=== PATIENT | male | born 1970 | race Caucasian/White ===

== ENCOUNTER 2016-06-28 17:35 | Inpatient (IN) | payer MEDICARE, MEDICAID ==
[~2016-06-28] VITALS: Ht 182.9 cm; Wt 86.3 kg
[~2016-06-28 17:35] MED LIST: AMOX500C2 PO; ASPI-557 PO; ATOR40TA64 PO; CARV6.25 PO; FURO40TA5 PO; PANT40TA27 PO; POTA10TA16 PO; SACU1TAB PO; SOTA80TA20 PO; SPIR25TA4 PO
--- OUTSIDE RECORDS SUMMARY | 2016-06-28 18:12 | XMS REPORT | CCD ---
Author Author DERIC ALSTON Organization Unknown Address [address], [place] [id number] Phone 0 Care Team Providers Care Production Team Leader Name Role Phone KATINA LOPEZ Attending Physician 0 KATINA LOPEZ Primary Surgeon 0 Vital Signs Vital Sign Value Unit Date/Time Recent/Initial? Weight Measured 190 lbs 05/18/2016 05:14 Initial VS Height 72 in 2016 05:14 Initial VS BMI (Body Mass Index) 25.77 kg/m^2 05/18/2016 05:14 Initial VS BSA (Body Surface Area) 2.09 m^2 05/18/2016 05:14 Initial VS Allergies Allergy Code Allergy Type Reaction Status No Known Allergies 0 No known allergies Active Procedures Unknown or Not Available. History of Immunizations Immunization Code Date Tdap 115 01/08/2013 Problems Unknown or Not Available. Results CARDIAC PANEL - Collect Date/Time: 05/18/2016 05:15 Test Name Code Test Result Test Units Test Ref Range CKMB 2.0 ng/mL L=0.0 H=3.6 CPK 123 U/L L=26 H=308 CKMB% 1.6 % L=0.0 H=4.0 TROPONIN I 1.07 ng/ mL L=0.00 H=0.05 COMP METABOLIC - Collect Date/Time: 05/18/2016 05:15 Test Name Code Test Result Test Units Test Ref Range GLUCOSE 93 mg/dL L=70 H=110 BUN 11 mg/dL L=7 H=18 CREATININE 0.93 mg/ dL L=0.60 H=1.30 AGE 45 YEARS GFR 87.1 L=60.0 H=120 SODIUM 142 mmol/L L=136 H=145 POTASSIUM 2.8 mmol/ L L=3.5 H=5.1 CHLORIDE 105 mmol/L L=98 H=107 CO2 25 mmol/L L=21 H=32 CALCIUM 9.0 mg/dL L=8.5 H=10.1 AST 34 U/L L=15 H=37 ALT 85 U/L L=12 H=78 ALKALINE PHOS 70 U/ L L=46 H=116 TOTAL PROTEIN 7.8 g/ dL L=6.4 H=8.2 ALBUMIN 3.9 g/dL L=3.4 H=5.0 TOTAL BILI 0.80 mg/ dL L=0.00 H=1.00 PRO B-TYPE NATRIURETIC PEPTIDE - Collect Date/Time: 05/18/2016 05:15 Test Name Code Test Result Test Units Test Ref Range PBNP 05717 pg/mL L=0 H=125 CBC W/ DIFF - Collect Date/Time: 05/18/2016 05:15 Test Name Code Test Result Test Units Test Ref Range WBC 8.4 x10^3 L=4.8 H=10.8 RBC 4.92 x10^6 L=4.70 H=6.10 HEMOGLOBIN 16.1 g/ dL L=14.0 H=18.0 HEMATOCRIT 47.2 % L=42.0 H=52.0 MCV 96 fL L=80 H=100 MCH 32.8 pg L=27.0 H=33.0 MCHC 34.2 g/dL L=33.0 H=37.0 RDW 12.4 % L=11.5 H=14.5 PLATELETS 219 x10^3 L=150 H=450 MPV 9.3 fL L=7.8 H=11.0 NEUTROPHILS 52.6 % L=40.0 H=80.0 LYMPHOCYTES 36.6 % L=20.0 H=45.0 MONOCYTES 7.5 % L=0.0 H=10.0 EOSINOPHILS 2.7 % L=0.0 H=5.0 BASOPHILS 0.6 % L=0.0 H=2.0 REFLEX MAN DIFF NO N /A D-DIMER, QUANTITATIVE - Collect Date/Time: 05/18/2016 05:15 Test Name Code Test Result Test Units Test Ref Range D-DIMER, QUANT <100 ng/mL L=0 H=400 Active Medications Unknown or Not Available. Medications Administered During Visit Unknown or Not Available. Encounters Unknown or Not Available. Social History Smoking Status Code Start Date End Date Current every day smoker [id number] Patient Decision Aids Unknown or Not Available. Discharge Instructions You were admitted to [facility] on 05/18/2016 04:50 You had the following tests done: CARDIAC PANEL CBC W/ DIFF COMP METABOLIC D-DIMER, QUANTITATIVE PRO B- TYPE NATRIURETIC PEPTIDE You were discharged from [facility] on 05/18/2016 09:00 Should you have any questions prior to discharge, please contact a member of your healthcare team. If you have left the hospital and have any questions, please contact your primary care physician. Chief Complaint and Reason For Visit Chief Complaint Date of Onset CHEST PAIN 05/18/2016 Function Status Unknown or Not Available. Plan of Care Unknown or Not Available. Referral/Transition of Care Unknown or Not Available.
--- OUTSIDE RECORDS SUMMARY | 2016-06-28 18:12 | XMS REPORT ---
Author Author ALEXIS SALAMANCA [facility] Address Unknown Phone Unavailable Care Team Providers Care Toaster Operator Name Role Phone Dr. CORRIE LAWRENCE Primary Care Physician Unavailable Allergies Allergy Description Allergy Type No Known Allergies Propensity to adverse reactions Procedures Procedure Type Procedure Description Date Physicians No codified procedures found for this patient. Results No Procedures Performed Observation Test Name Observation Test Result Observation Test Units Observation Test Date Observation Test Time No result observations. History of Immunizations Immunization Date Tdap 01/08/2013 Plan of Care Item Text No plan of care items. Procedure Date/Time/Initials Critical? Status No plan of care procedures. Medication List Medication Dose Units Frequency Start Date/Time Status none Problem List Problem Entered Date Resolved Date No known problems
--- OUTSIDE RECORDS SUMMARY | 2016-06-28 18:12 | XMS REPORT | Continuity of Care Document ---
Author Author [facility] Organization [facility] Address Unknown Phone Unavailable Allergies Active Description Code Type Severity Reaction Onset Reported/Identified Relationship to Patient Clinical Status Yes No Known Medication Allergies NKMA N/A N/A 11/01/2013 Yes No Known Allergies No Known Allergies Drug Allergy Unknown N/A 11/04/2013 Medications Medication Packaging Start Date Stop Date Route Dosage Sig mupirocin topical(Bactroban) 1 autumn 04/02/2014 04/03/2014 Nasal 1 autumn, Nasal, BID allopurinol(Zyloprim) 2 tabs 04/02/2014 04/03/2014 Oral 600 mg 600 mg, Oral, Daily acetaminophen(acetaminophen) 1 supp 04/02/2014 04/03/2014 Rectal 650 mg 650 mg, Rectal, q4hr, PRN: Pain zolpidem(Ambien) 1 tabs 04/02/2014 04/03/2014 Oral 5 mg 5 mg, Oral, Bedtime (once a day), PRN: Insomnia spironolactone(spironolactone 25 mg oral tablet) 1 tabs 04/03/2014 12/27/2015 Oral 25 mg 1 tabs, Oral, Daily furosemide(Lasix 40 mg oral tablet) 1 tabs 04/03/20142015 Oral 40 mg 1 tabs, Oral, Daily enalapril(enalapril 5 mg oral tablet) 1 tabs 04/03/20142014 Oral 5 mg 1 tabs, Oral, BID carvedilol(carvedilol 3.125 mg oral tablet) 1 tabs 04/03/2014 04/23/2014 Oral 3.125 mg 1 tabs, Oral, BID ondansetron(Zofran) 2 mL 04/03/2014 04/03/2014 IV Push 4 mg 4 mg, IV Push, Once HYDROmorphone(Dilaudid) 04/03/2014 04/03/2014 IV Push 0.5 mg 0.5 mg, IV Push, q5min, PRN: Pain Lactated Ringers Injection(Lactated Ringers Injection 1, 000 mL) 1,000 mL 201404/03/2014 IV 10 mL/hr, IV midazolam(Versed) 2 mL 04/03/2014 04/03/2014 IV Push 2 mg 2 mg, IV Push, Once Lactated Ringers Injection(Lactated Ringers Injection 1, 000 mL) 1,000 mL 201404/03/2014 IV 10 mL/hr, IV HYDROmorphone(Dilaudid) 0.25 mL 04/03/2014 04/04/2014 IV Push 0.5 mg 0.5 mg, IV Push, q10min, PRN: Pain docusate(Colace) 1 caps 04/03/2014 04/08/2014 Oral 100 mg 100 mg, Oral, BID senna(senna 8.6 mg oral tablet) 1 tabs 04/03/2014 04/08/2014 Oral 8.6 mg 8.6 mg, 1 tabs, Oral, Daily polyethylene glycol 3350(MiraLax) 1 packets 04/03/20142014 Oral 17 g 17 g, Oral, Daily HYDROmorphone(Dilaudid) 04/03/2014 04/03/2014 Oral 0.5-1 mg, Oral, q2hr, PRN: Pain famotidine(Pepcid) 1 tabs 04/03/2014 04/08/2014 Oral 20 mg 20 mg , Oral, BID HYDROcodone-acetaminophen(Oldham 5 mg-325 mg oral tablet) 04/03/2014 04/08/2014 Oral 1-2 tabs, Oral, q4hr, PRN: Pain Moderate (4-6) albuterol(albuterol 5 mg/mL (0.5%) inhalation solution) 0.5 mL 04/03/2014 04/03/2014 NEB 2.5 mg 2.5 mg, 0.5 mL, NEB, q4hr (scheduled) carvedilol(carvedilol) 1 tabs 04/03/2014 04/08/2014 Oral 3.125 mg 3.125 mg, Oral, BIDWM HYDROmorphone(Dilaudid) 04/03/2014 04/08/2014 IV Push 0.5 mg- 1 mg, IV Push, q2hr, PRN: Pain Severe (7-10) ipratropium(ipratropium 500 mcg/2.5 mL inhalation solution ) 2.5 mL 04/03/2014 04/08/2014 NEB 0.5 mg 0.5 mg, 2.5 mL, NEB, q2hr (scheduled), PRN: Other (See Comment) albuterol(albuterol 5 mg/mL (0.5%) inhalation solution) 0.5 mL 04/03/2014 04/08/2014 NEB 2.5 mg 2.5 mg, 0.5 mL, NEB, q2hr (scheduled), PRN: Other (See Comment) ondansetron(Zofran) 1 tabs 04/03/2014 04/03/2014 Oral 4 mg 4 mg, Oral, q8hr, PRN: Nausea or Vomiting ondansetron(Zofran) 2 mL 04/03/2014 04/08/2014 IV Push 4 mg 4 mg, IV Push, q6hr, PRN: Nausea or Vomiting nicotine(nicotine 21 mg/24 hr transdermal film, extended release) 1 patches 04/0404/08/2014 TransDermal 1 patches, TransDermal, Daily ketorolac(Toradol) 1 mL 04/04/2014 04/04/2014 IV Push 15 mg 15 mg , IV Push, q6hr furosemide(Lasix) 4 mL 04/04/2014 04/05/2014 IV Push 40 mg 40 mg , IV Push, Daily lisinopril(lisinopril) 1 tabs 04/04/2014 04/08/2014 Oral 5 mg 5 mg, Oral, Daily spironolactone(spironolactone) 1 tabs 04/05/2014 04/08/2014 Oral 25 mg 25 mg, Oral, Daily potassium chloride(potassium chloride 20 mEq oral tablet, extended release) 2 tabs 04/05/2014 04/05/2014 Oral 40 mEq 40 mEq, 2 tabs, Oral, Once furosemide(Lasix) 1 tabs 04/05/2014 04/08/2014 Oral 40 mg 40 mg , Oral, Daily potassium chloride(potassium chloride 20 mEq oral tablet, extended release) 1 tabs 04/06/2014 04/06/2014 Oral 20 mEq 20 mEq, 1 tabs, Oral, BID potassium chloride(potassium chloride 20 mEq oral tablet, extended release) 1 tabs 04/06/2014 04/06/2014 Oral 20 mEq 20 mEq, 1 tabs, Oral, Once docusate(Colace 100 mg oral capsule) 1 caps 04/08/20142014 Oral 100 mg 1 caps, Oral, BID HYDROcodone-acetaminophen(Oldham 5 mg-325 mg oral tablet) 04/08/2014 06/14/2014 Oral 1-2 tabs, Oral, q4hr, 40 tabs, PRN: Pain Moderate (4-6) acetaminophen(acetaminophen) 2 tabs 04/20/2014 04/23/2014 Oral 1,000 mg 1,000 mg, Oral, q6hr, PRN: Pain Mild (1-3) pneumococcal 23-polyvalent vaccine(pneumococcal 23- polyvalent vaccine) 0.5 mL 04/20/2014 04/20/2014 IntraMuscular 0.5 mL, IntraMuscular , As Indicated vancomycin(vancomycin) 04/20/2014 04/22/2014 IV Piggyback 1 g 1 g, 166.67 mL/hr, IV Piggyback, q12hr morphine(morphine) 1 mL 04/20/2014 04/23/2014 IV Push 2 mg 2 mg, IV Push, q4hr, PRN: Angina/Chest Pain nitroglycerin(nitroglycerin) 1 tabs 04/20/2014 04/21/2014 SubLingual 0.4 mg 0.4 mg, SubLingual, q5min, PRN: Angina/Chest Pain aspirin(aspirin) 1 tabs 04/20/2014 04/23/2014 Oral 81 mg 81 mg , Oral, Daily spironolactone(spironolactone) 1 tabs 04/21/2014 04/23/2014 Oral 25 mg 25 mg, Oral, Daily HYDROcodone-acetaminophen(Oldham 5 mg-325 mg oral tablet) 1 tabs 04/21/2014 04/23/2014 Oral 1 tabs, Oral, q4hr, PRN: Pain Moderate (4-6) furosemide(Lasix) 1 tabs 04/21/2014 04/23/2014 Oral 40 mg 40 mg , Oral, Daily LORazepam(Ativan) 1 tabs 04/21/2014 04/23/2014 Oral 0.5 mg 0.5 mg, Oral, TID, PRN: Anxiety enoxaparin(Lovenox) 0.4 mL 04/21/2014 04/23/2014 SubCutaneous 40 mg 40 mg, SubCutaneous, Daily enalapril(enalapril) 1 tabs 04/21/2014 04/23/2014 Oral 5 mg 5 mg , Oral, BID carvedilol(Coreg) 1 tabs 04/21/2014 04/22/2014 Oral 3.125 mg 3.125 mg, Oral, BIDWM metoprolol(metoprolol tartrate 25 mg oral tablet) 1 tabs 04/22/2014 04/23/2014 Oral 25 mg 25 mg, 1 tabs, Oral, BID cephalexin(Keflex) 1 caps 04/22/2014 04/23/2014 Oral 500 mg 500 mg, Oral, TID cephalexin(Keflex 500 mg oral capsule) 1 caps 04/23/20142014 Oral 500 mg 1 caps, Oral, TID, 15 caps metoprolol(metoprolol tartrate 25 mg oral tablet) 0.5 tabs 04/23/2014 12/27/2015 Oral 12.5 mg 0.5 tabs, Oral, BID, 30 tabs enalapril(enalapril 2.5 mg oral tablet) 1 tabs 04/23/201412/26 Oral 2.5 mg 1 tabs, Oral, BID, 60 tabs spironolactone(spironolactone) 12/27/2015 Oral 25 mg 25 mg, Oral, Daily, 0 Refill(s) carvedilol(carvedilol) 12/27/2015 Oral 6.25 mg 6.25 mg, Oral , BID, 0 Refill(s) aspirin(aspirin) 12/27/2015 Oral 81 mg 81 mg, Oral, Daily, 0 Refill(s) sotalol(sotalol) 12/27/2015 Oral 40 mg 40 mg, Oral, BID, 0 Refill(s) potassium chloride(Klor-Con 10 oral tablet, extended release) 1 tabs 201512/28/2015 Oral 10 mEq 10 mEq=1 tabs, Oral, Daily, 0 Refill(s) losartan(losartan) 12/27/2015 Oral 25 mg 25 mg, Oral, Daily, 0 Refill(s) furosemide(furosemide) 12/27/2015 Oral 40 mg 40 mg, Oral, Daily, 0 Refill(s) nitroglycerin(nitroglycerin) 1 tabs 12/27/2015 12/28/2015 SubLingual 0.4 mg 0.4 mg=1 tabs, SubLingual, q5min, PRN: Angina/Chest Pain acetaminophen(acetaminophen) 2 tabs 12/27/2015 12/28/2015 Oral 1,000 mg 1,000 mg=2 tabs, Oral, q6hr, PRN: Pain Mild (1-3) aspirin(aspirin) 1 tabs 12/27/2015 12/28/2015 Oral 81 mg 81 mg= 1 tabs, Oral, Daily ondansetron(Zofran) 2 mL 12/27/2015 12/28/2015 IV Push 4 mg 4 mg= 2 mL, IV Push, q6hr, PRN: Nausea or Vomiting furosemide(furosemide) 4 mL 12/27/2015 12/28/2015 IV Push 40 mg 40 mg=4 mL, IV Push, Daily pantoprazole(Protonix) 1 tabs 12/27/2015 12/28/2015 Oral 40 mg 40 mg=1 tabs, Oral, Before Breakfast enoxaparin(Lovenox) 0.8 mL 12/27/2015 12/28/2015 SubCutaneous 80 mg 80 mg=0.8 mL, SubCutaneous, BID losartan(losartan) 1 tabs 12/27/2015 12/28/2015 Oral 25 mg 25 mg= 1 tabs, Oral, Daily carvedilol(carvedilol) 1 tabs 12/27/2015 12/28/2015 Oral 6.25 mg 6.25 mg=1 tabs, Oral, BIDWM potassium chloride(potassium chloride 20 mEq oral tablet, extended release) 1 tabs 12/27/2015 12/27/2015 Oral 20 mEq 20 mEq=1 tabs, Oral, Once spironolactone(spironolactone) 1 tabs 12/27/2015 12/28/2015 Oral 25 mg 25 mg=1 tabs, Oral, Daily sotalol(sotalol 80 mg oral tablet) 0.5 tabs 12/27/20152015 Oral 40 mg 40 mg=0.5 tabs, Oral, BID atorvastatin(atorvastatin 40 mg oral tablet) 1 tabs 12/28/2015 Oral 40 mg 40 mg=1 tabs, Oral, Daily, 90 tabs, 3 Refill(s) pantoprazole(Protonix 40 mg oral delayed release tablet) 1 tabs 12/28/2015 Oral 40 mg 40 mg=1 tabs, Oral, Before Breakfast, 30 tabs, 3 Refill( s) Problems Date Dx Coded Attending Type Code Diagnosis Diagnosed By 04/16/2014 Alexander Dooley MD Final 285.1 ACUTE POSTHEMORRHAGIC ANEMIA 04/16/2014 Alexander Dooley MD Final 305.1 TOBACCO USE DISORDER 04/16/2014 Alexander Dooley MD Final 401.9 UNSPECIFIED ESSENTIAL HYPERTENSION 04/16/2014 Alexander Dooley MD Final 425.4 OTHER PRIMARY CARDIOMYOPATHIES 04/16/2014 Alexander Dooley MD Final 428.0 CONGESTIVE HEART FAILURE, UNSPECIFIED 04/16/2014 Alexander Dooley MD Final 428.22 CHRONIC SYSTOLIC HEART FAILURE 04/29/2014 Simba Hidalgo MD Final 041.10 UNSPECIFIED STAPHYLOCOCCUS INFECTION IN CONDITIONS CLASSIFIED ELSEWHERE AND 04/29/2014 Simba Hidalgo MD Final 305.1 TOBACCO USE DISORDER 04/29/2014 Simba Hidalgo MD Final 425.4 OTHER PRIMARY CARDIOMYOPATHIES 04/29/2014 Simba Hidalgo MD Final 458.9 HYPOTENSION, UNSPECIFIED 04/29/2014 Simba Hidalgo MD Admitting 786.50 UNSPECIFIED CHEST PAIN 04/29/2014 Simba Hidalgo MD Final 786.59 OTHER CHEST PAIN 04/29/2014 Simba Hidalgo MD Final 996.62 INFECTION AND INFLAMMATORY REACTION DUE TO OTHER VASCULAR DEVICE, IMPLANT, 04/29/2014 Simba Hidalgo MD Final 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 04/29/2014 Simba Hidalgo MD Final V06.6 NEED FOR PROPHYLACTIC VACCINATION AND INOCULATION AGAINST STREPTOCOCCUS PNE 12/28/2015 Gwen,, Veray Admitting R07.9 12/30/2015 Gwen,, Veray Final F17.210 Nicotine dependence, cigarettes, uncomplicated 12/30/2015 Gwen,, Wayneidy Final I10 Essential (primary) hypertension 12/30/2015 Gwen,, Veray Final I42.8 Other cardiomyopathies 12/30/2015 Gwen,, Simba Final I49.3 Ventricular premature depolarization 12/30/2015 Gwen,, Freidy Final K30 Functional dyspepsia 12/30/2015 Gwen,Simba Reason R07.9 Chest pain, unspecified 12/30/2015 Gwen,, Wayneidy Final Z23 Encounter for immunization 12/30/2015 Gwen,, Wayneidy Final Z79.82 [facility] (current) use of aspirin 12/30/2015 Gwen,, Wayneidy Final Z79.899 Other prison (current) drug therapy 12/30/2015 Gwen,, Wayneidy Final Z95.810 Presence of automatic (implantable) cardiac defibrillator Procedures Code Description Performed By Performed On 37.22 LEFT HEART CARDIAC CATH Neal LI, [facility] 11/04/2013 88.48 CONTRAST ARTERIOGRAM-LEG Neal LI, [facility] 11/04/2013 88.53 LT HEART ANGIOCARDIOGRAM Neal LI, [facility] 11/04/2013 88.56 CORONAR ARTERIOGR-2 CATH Neal LI, [facility] 11/04/2013 37.95 Implantation of automatic cardioverter/defibrillator lead(s) only 04/03/2014 Results Test Result Range CBC - 11/04/13 11:34 MEAN CELL HGB 33.7 pg 27.0-33.0 MEAN CELL HGB CONCENTRATION 36.0 g/dL 32.0-37.0 MEAN CELL VOLUME 93.7 fl 80.0-100.0 RED BLOOD CELL 4.30 m/cumm 4.00-6.00 RED CELL DISTRIBUTION WIDTH 12.5 % 11.0- 15.6 WHITE BLOOD CELL 9.3 k/cumm 5.0-10.0 HEMOGLOBIN 14.5 gm/dL 14.0-18.0 HEMATOCRIT 40.3 % 40.0-54.0 PLATELET COUNT 225 k/cumm 150-400 PROTHROMBIN TIME WITH INR - 11/04/13 11:34 INTERNATIONAL NORMAL RATIO 1.1 0.9-1.1 PROTHROMBIN TIME 12.6 sec 9.3-12.2 PARTIAL THROMBOPLASTIN TIME - 11/04/13 11:34 PARTIAL THROMBOPLASTIN TIME 34 sec 24-36 TROPONIN I - 11/04/13 11:34 TROPONIN I 0.07 ng/mL < 0.07 PTT HEPARIN PROTOCOLS - 11/04/13 18:10 PARTIAL THROMBOPLASTIN TIME 94 sec 24-36 B-TYPE NATRIURETIC PEPTIDE - 11/04/13 18:10 B-TYPE NATRIURETIC PEPTIDE 1496 pg/mL < 100 METABOLIC PANEL, BASIC - 11/04/13 18:10 POTASSIUM 3.6 mmol/L 3.5-5.3 EST GFR (MDRD) > 60 mL/min > 59 ANION GAP 5 mmol/L 5-15 EST CrCl (CG) > 60 mL/min > 59 GLUCOSE 89 mg/dL 70-99 CALCIUM 8.9 mg/dL 8.5-10.1 BLOOD UREA NITROGEN 10 mg/dL 7-20 CREATININE 1.1 mg/dL 0.8-1.3 SODIUM 141 mmol/L 135-148 CHLORIDE 109 mmol/L 98-110 CARBON DIOXIDE 27 mmol/L 21-32 MRSA SURVEILLANCE SCREEN - 11/04/13 19:10 Microbiology PTT HEPARIN PROTOCOLS - 11/05/13 00:30 PARTIAL THROMBOPLASTIN TIME 70 sec 24-36 B-TYPE NATRIURETIC PEPTIDE - 11/05/13 06:13 B-TYPE NATRIURETIC PEPTIDE 1116 pg/mL < 100 CBC - 11/05/13 06:13 MEAN CELL HGB 33.9 pg 27.0-33.0 MEAN CELL HGB CONCENTRATION 35.9 g/dL 32.0-37.0 MEAN CELL VOLUME 94.2 fl 80.0-100.0 RED BLOOD CELL 4.49 m/cumm 4.00-6.00 RED CELL DISTRIBUTION WIDTH 12.6 % 11.0- 15.6 WHITE BLOOD CELL 6.7 k/cumm 5.0-10.0 HEMOGLOBIN 15.2 gm/dL 14.0-18.0 HEMATOCRIT 42.3 % 40.0-54.0 PLATELET COUNT 237 k/cumm 150-400 PTT HEPARIN PROTOCOLS - 11/05/13 06:13 PARTIAL THROMBOPLASTIN TIME 68 sec 24-36 METABOLIC PANEL, BASIC - 11/05/13 06:13 POTASSIUM 3.7 mmol/L 3.5-5.3 EST GFR (MDRD) > 60 mL/min > 59 ANION GAP 10 mmol/L 5-15 EST CrCl (CG) > 60 mL/min > 59 GLUCOSE 105 mg/dL 70-99 CALCIUM 9.0 mg/dL 8.5-10.1 BLOOD UREA NITROGEN 13 mg/dL 7-20 CREATININE 1.0 mg/dL 0.8-1.3 SODIUM 138 mmol/L 135-148 CHLORIDE 106 mmol/L 98-110 CARBON DIOXIDE 22 mmol/L 21-32 TROPONIN I - 11/05/13 06:13 TROPONIN I 0.05 ng/mL < 0.07 CBC W/DIFF - 11/05/13 10:26 BASOPHIL # 0.0 k/cumm 0.0-0.2 BASOPHIL % 1 % 0-1 EOSINOPHIL # 0.1 k/cumm 0.1-0.5 EOSINOPHIL % 1 % 2-4 GRANULOCYTE # 5.7 k/cumm 2.0-9.0 GRANULOCYTE % 71 % 50-75 LYMPHOCYTE # 1.5 k/cumm 1.0-4.0 LYMPHOCYTE % 19 % 20-30 MEAN CELL HGB 33.6 pg 27.0-33.0 MEAN CELL HGB CONCENTRATION 35.8 g/dL 32.0-37.0 MEAN CELL VOLUME 93.9 fl 80.0-100.0 MONOCYTE # 0.7 k/cumm 0.1-1.0 MONOCYTE % 9 % 4-6 RED BLOOD CELL 4.40 m/cumm 4.00-6.00 RED CELL DISTRIBUTION WIDTH 12.6 % 11.0- 15.6 WHITE BLOOD CELL 8.0 k/cumm 5.0-10.0 HEMOGLOBIN 14.8 gm/dL 14.0-18.0 HEMATOCRIT 41.3 % 40.0-54.0 PLATELET COUNT 236 k/cumm 150-400 PROTHROMBIN TIME WITH INR - 11/05/13 10:26 INTERNATIONAL NORMAL RATIO 1.1 0.9-1.1 PROTHROMBIN TIME 12.6 sec 9.3-12.2 METABOLIC PANEL, BASIC - 11/05/13 10:26 POTASSIUM 3.8 mmol/L 3.5-5.3 EST GFR (MDRD) > 60 mL/min > 59 ANION GAP 9 mmol/L 5-15 EST CrCl (CG) > 60 mL/min > 59 GLUCOSE 103 mg/dL 70-99 CALCIUM 8.8 mg/dL 8.5-10.1 BLOOD UREA NITROGEN 12 mg/dL 7-20 CREATININE 0.9 mg/dL 0.8-1.3 SODIUM 138 mmol/L 135-148 CHLORIDE 105 mmol/L 98-110 CARBON DIOXIDE 24 mmol/L 21-32 MAGNESIUM - 11/05/13 10:26 MAGNESIUM 2.0 mg/dL 1.8-2.4 CBC - 11/06/13 05:54 MEAN CELL HGB 33.0 pg 27.0-33.0 MEAN CELL HGB CONCENTRATION 34.8 g/dL 32.0-37.0 MEAN CELL VOLUME 94.6 fl 80.0-100.0 RED BLOOD CELL 4.43 m/cumm 4.00-6.00 RED CELL DISTRIBUTION WIDTH 12.5 % 11.0- 15.6 WHITE BLOOD CELL 8.3 k/cumm 5.0-10.0 HEMOGLOBIN 14.6 gm/dL 14.0-18.0 HEMATOCRIT 41.9 % 40.0-54.0 PLATELET COUNT 237 k/cumm 150-400 PTT HEPARIN PROTOCOLS - 11/06/13 05:54 PARTIAL THROMBOPLASTIN TIME 34 sec 24-36 METABOLIC PANEL, BASIC - 11/06/13 05:54 POTASSIUM 4.0 mmol/L 3.5-5.3 EST GFR (MDRD) > 60 mL/min > 59 ANION GAP 11 mmol/L 5-15 EST CrCl (CG) > 60 mL/min > 59 GLUCOSE 98 mg/dL 70-99 CALCIUM 8.6 mg/dL 8.5-10.1 BLOOD UREA NITROGEN 13 mg/dL 7-20 CREATININE 1.1 mg/dL 0.8-1.3 SODIUM 140 mmol/L 135-148 CHLORIDE 107 mmol/L 98-110 CARBON DIOXIDE 22 mmol/L 21-32 LIPID PANEL - 11/06/13 05:54 CHOLESTEROL/HDL RATIO 6.2 < 5.0 LDL CHOLESTEROL 131 mg/dL < 100 VLDL CHOLESTEROL 30 mg/dL < 30 TRIGLYCERIDES 151 mg/dL < 150 CHOLESTEROL 192 mg/dL < 200 HDL CHOLESTEROL 31 mg/dL > 39 Encounters ACCT No. Visit Date/Time Discharge Status Pt. Type Provider Facility Loc./Unit Complaint [id number] 11/04/2013 10:41:00 2013 18:28:00 DIS Outpatient Neal LI, [facility] [id number]
--- OUTSIDE RECORDS SUMMARY | 2016-06-28 18:13 | XMS REPORT | CCD ---
Author Author DERIC ALSTON Organization Unknown Address [address], [place] [id number] Phone 0 Care Team Providers Care Dental Practitioner Name Role Phone PATTI KOWALSKI Attending Physician [phone] PATTI KOWALSKI Primary Surgeon [phone] Vital Signs Unknown or Not Available. Allergies Allergy Code Allergy Type Reaction Status No Known Allergies 0 No known allergies Active Procedures Unknown or Not Available. History of Immunizations Immunization Code Date Tdap 115 01/08/2013 Problems Unknown or Not Available. Results CARDIAC PANEL - Collect Date/Time: 05/10/2016 09:03 Test Name Code Test Result Test Units Test Ref Range CKMB 1.9 ng/mL L=0.0 H=3.6 CPK 96 U/L L=26 H=308 CKMB% 2.0 % L=0.0 H=4.0 TROPONIN I 1.15 ng/ mL L=0.00 H=0.05 COMP METABOLIC - Collect Date/Time: 05/10/2016 09:03 Test Name Code Test Result Test Units Test Ref Range GLUCOSE 101 mg/dL L=70 H=110 BUN 13 mg/dL L=7 H=18 CREATININE 0.99 mg/ dL L=0.60 H=1.30 AGE 45 YEARS GFR 81.0 L=60.0 H=120 SODIUM 143 mmol/L L=136 H=145 POTASSIUM 2.9 mmol/ L L=3.5 H=5.1 CHLORIDE 106 mmol/L L=98 H=107 CO2 25 mmol/L L=21 H=32 CALCIUM 8.8 mg/dL L=8.5 H=10.1 AST 12 U/L L=15 H=37 ALT 32 U/L L=12 H=78 ALKALINE PHOS 60 U/ L L=46 H=116 TOTAL PROTEIN 7.2 g/ dL L=6.4 H=8.2 ALBUMIN 3.6 g/dL L=3.4 H=5.0 TOTAL BILI 1.00 mg/ dL L=0.00 H=1.00 CBC W/ DIFF - Collect Date/Time: 05/10/2016 09:03 Test Name Code Test Result Test Units Test Ref Range WBC 7.2 x10^3 L=4.8 H=10.8 RBC 4.72 x10^6 L=4.70 H=6.10 HEMOGLOBIN 15.7 g/ dL L=14.0 H=18.0 HEMATOCRIT 46.1 % L=42.0 H=52.0 MCV 98 fL L=80 H=100 MCH 33.2 pg L=27.0 H=33.0 MCHC 34.0 g/dL L=33.0 H=37.0 RDW 12.9 % L=11.5 H=14.5 PLATELETS 238 x10^3 L=150 H=450 MPV 8.4 fL L=7.8 H=11.0 NEUTROPHILS 59.5 % L=40.0 H=80.0 LYMPHOCYTES 29.6 % L=20.0 H=45.0 MONOCYTES 7.6 % L=0.0 H=10.0 EOSINOPHILS 2.4 % L=0.0 H=5.0 BASOPHILS 0.9 % L=0.0 H=2.0 REFLEX MAN DIFF NO N /A Active Medications Unknown or Not Available. Medications Administered During Visit Unknown or Not Available. Encounters Unknown or Not Available. Social History Smoking Status Code Start Date End Date Current every day smoker [id number] Patient Decision Aids Unknown or Not Available. Discharge Instructions You were admitted to [facility] on 05/10/2016 09:40 You had the following tests done: CARDIAC PANEL CBC W/ DIFF COMP METABOLIC You were discharged from [facility] on 05/10/2016 09:40 Should you have any questions prior to discharge, please contact a member of your healthcare team. If you have left the hospital and have any questions, please contact your primary care physician. Chief Complaint and Reason For Visit Chief Complaint Date of Onset LAB 05/10/2016 Function Status Unknown or Not Available. Plan of Care Unknown or Not Available. Referral/Transition of Care Unknown or Not Available.
--- OUTSIDE RECORDS SUMMARY | 2016-06-28 18:13 | XMS REPORT | Continuity of Care Document ---
Author Author [facility] Organization [facility] Address Unknown Phone Unavailable Care Team Providers Care Paper Coater Name Role Phone ISABELLE ZURITA MD Primary Care Physician [phone] Insurance Providers Guarantor Spenser Crow Address [address] [phone] Email DIRECT ADMIT 05/18/16 Payer [facility] [employer] Policy Number [id number] Subscriber's Name TristinSpenser Abiola Relationship 18 Self Effective Date 04/28/16 Expiration Date 05/25/16 Payer Medicare Policy Number [id number] Subscriber's Name TristinSpenser Culver Relationship 18 Self Advance Directives Directive Response Recorded Date/Time Ordered Resuscitation Status Full Code 05/18/16 10:13am Resuscitation Documents on File No 05/18/16 10:46am DPOA for Healthcare Only No 05/18/16 10:46am Living Will No 05/18/16 10:46am Problems Active Problems Medical Problem Onset Date Status Automatic implantable cardioverter-defibrillator in situ Unknown Chronic CHF (congestive heart failure) Unknown Cardiomyopathy 02/20/2014 Chronic Elevated troponin Unknown Acute Essential (primary) hypertension Unknown Chronic Hypokalemia Unknown Acute Low TSH level Unknown Acute Premature ventricular beats Unknown Chronic Medications Current Home Medications Medication Dose Units Route Directions Days Qty Instructions Start Date Amoxicillin 500 Mg Capsule 1 Cap Oral Twice A Day 05/10/16 Aspirin (Aspir 81) 81 Mg Tablet. 1 Tab Oral Daily 02/20/14 Atorvastatin Calcium 40 Mg Tablet 1 Tab Oral Bedtime 05/10/16 Carvedilol (Coreg) 6.25 Mg Tablet 6.25 Mg Oral Twice Daily With Meals 30 Days 60 Tablet 12/11/15 Furosemide 40 Mg Tablet 40 Mg Oral Daily 30 02/20/14 Pantoprazole Sodium 40 Mg Tablet.dr 40 Mg Oral Before Breakfast Take 1 tablet, by mouth, daily before breakfast. 05/10/16 Potassium Chloride (Klor-Con M10) 10 Meq Tablet 10 Meq Oral Give With Breakfast 30 Days 30 Tablet 05/18/16 Sacubitril/Valsartan (Entresto 24 Mg-26 Mg Tablet) 1 Each Tablet 1 Tab Oral Twice A Day 30 Days 60 Tablet 05/18/16 Sotalol Hcl (Betapace) 80 Mg Tablet 40 Mg Oral Before Meals Twice A Day 30 Days 30 Tablet 12/11/15 Spironolactone 25 Mg Tablet 25 Mg Oral Daily 30 02/20/14 Past Home Medications Medication Directions Ordered Status Losartan Potassium 25 Mg Tablet, 25 Mg Oral Daily 12/09/15 Discontinued Metoprolol Succinate 25 Mg Tab.er.24h, 25 Mg Oral Twice A Day 12/09/15 Discontinued Social History Social History Problem Response Recorded Date/Time Onset Date Status Reason for Hospitalization chest pain 05/18/2016 5:55pm Not Applicable Not Applicable Hx Substance Use No 02/20/2014 10:47am Not Applicable Not Applicable Hx Alcohol Use No 02/20/2014 10:47am Not Applicable Not Applicable Has the pt used tobacco in the last 12 months Yes 05/18/2016 10:47am Not Applicable Not Applicable Query Response Start Date Stop Date Smoking Status Current every day smoker Hospital Discharge Instructions Instructions: Care Instructions: I was in the hospital because (patient own words): my heart Discharge Diet: Resume heart healthy diet Discharge Activity: May resume usual activity as tolerated Follow Up Appointments: Follow up with Dr. Weir on: previously scheduled appointment on 05/25/16 Pending Lab / Results: No Pending Lab Patient Instructions: New prescriptions:Entresto 24/26mg by mouth every morning and evening Expected Signs/Symptoms: improved chest pain with Ibuprofen or Aleve Notify Physician If: AN During Business Hours:: Please call the physician's office at [phone] After Business Hours:: Please call [phone] and have the vanstone machine operator page the physician. Pain Management/Treatment: Ibuprofen or Aleve as needed Pain Scale Utilized to Educate Patient: 0-10 Pain Scale Wound/Incision Care: NA Condition at time of discharge: Good Plan of Care Discharge Date 05/18/16 6:17pm Disposition 01 DISCHARGED HOME, SELF-CARE Instructions/Education Provided Angina (GEN) Prescriptions See Medication Section Care Plan and Goals See Discharge Instructions Section Functional Status Query Response Date Recorded Mobility Status Ambulatory May 18, 2016 10:47am Assistive Devices None May 18, 2016 10:47am Activity Limitations None May 18, 2016 10:47am Feeding Ability Independent May 18, 2016 10:47am Toileting Ability Independent May 18, 2016 10:47am Grooming Ability Independent May 18, 2016 10:47am Dressing Ability Independent May 18, 2016 10:47am Driving Ability Independent May 18, 2016 10:47am Housework Ability Independent May 18, 2016 10:47am Meal Preparation Ability Independent May 18, 2016 10:47am Stair Climbing Ability Independent May 18, 2016 10:47am Ability to complete ADL's impeded by No change May 18, 2016 10:47am Cognitive/Perceptual Impairments Impaired vision May 18, 2016 10:47am Visual Assistive Devices Glasses With patient May 18, 2016 10:47am Allergies, Adverse Reactions, Alerts No known allergies. Immunizations Query Response on File Recorded Date/Time Hx Influenza Vaccination Y NOV 2015 05/18/16 10:47am Hx Pneumococcal Vaccination No 05/18/16 10:47am Hx Influenza Vaccination Y NOV 2015 05/18/16 10:47am Influenza Vaccine Hx NOV 2015 05/18/16 10:52am Vital Signs Acute Vital Signs Vital Response Date/Time Temperature (Fahrenheit) 96.9 deg F (96.8 - 99.1) 05/18/2016 3:50pm Temperature (Calculated Celsius) 36.03071 degrees C (36.0 - 37.3) 05/18/2016 3:50pm Pulse Rate (adult) 55 bpm (60 - 100) 05/18/2016 3:50pm Respiratory Rate 18 breaths/min (10 - 20) 05/18/2016 3:50pm O2 Sat by Pulse Oximetry 96 % (90 - 100) 05/18/2016 3:50pm Oxygen Delivery Method Room Air 05/18/2016 3:50pm Blood Pressure 129/67 mm Hg 05/18/2016 3:50pm Blood Pressure Source Automatic Cuff 05/18/2016 3:50pm Height (Feet) 6 feet 05/18/2016 11:06am Height (Inches) 0.00 inches 05/18/2016 11:06am Weight (Kilograms) 86.000 kg 05/18/2016 10:52am Body Mass Index (BMI) 25.7 05/18/2016 10:45am Results Laboratory Results Test Name Result Units Flags Reference Collection Date/Time Result Date/ Time Comments Prothromb Time International Ratio 1.16 H 0.76-1.04 05/10/2016 1:04pm 05/10/2016 1:24pm THERAPUTIC RANGE=2.00-3.00 FOR ANTI-THROMBOSIS THERAPUTIC RANGE=2.50-3.50 FOR IMPLANTED VALVE Cholesterol Level 106 MG/DL L 132-199 05/11/2016 4:34am 05/11/2016 5: 15am Triglycerides Level 107 MG/DL 40-160 05/11/2016 4:34am 05/11/2016 5: 15am HDL Cholesterol Direct 29 MG/DL L 40-60 05/11/2016 4:34am 05/11/2016 5: 15am LDL Cholesterol, Calculated 55.6 L 66-159 05/11/2016 4:34am 2016 5:15am VLDL Cholesterol 21.4 MG/DL 0-28 05/11/2016 4:34am 05/11/2016 5:15am Cholesterol/HDL Ratio 3.7 RATIO 0-5.0 05/11/2016 4:34am 05/11/2016 5: 15am Thyroid Stimulating Hormone (TSH) 0.82 MIU/L 0.47-4.68 05/10/2016 1: 04pm 05/10/2016 2:48pm White Blood Count 6.5 T/MM3 4.5-11.0 05/18/2016 11:02am 05/18/2016 11: 15am Red Blood Count 4.18 M/MM3 L 4.50-5.90 05/18/2016 11:02am 05/18/2016 11: 15am Hemoglobin 14.3 GM/DL 13.5-17.5 05/18/2016 11:02am 05/18/2016 11:15am Hematocrit 41.1 % 41-53 05/18/2016 11:02am 05/18/2016 11:15am Mean Corpuscular Volume 98.3 UM3 80-100 05/18/2016 11:02am 05/18/2016 11:15am Mean Corpuscular Hemoglobin 34.2 UUG H 26-34 05/18/2016 11:02am 2016 11:15am Mean Corpuscular Hemoglobin Concent 34.8 GM/DL 31-37 05/18/2016 11:02am 05/18/2016 11:15am RDW Standard Deviation 42.9 FL 36.9-50.2 05/18/2016 11:02am 05/18/2016 11:15am Platelet Count 199 T/MM3 130-400 05/18/2016 11:02am 05/18/2016 11:15am Mean Platelet Volume 10.6 UM3 9.4-12.4 05/18/2016 11:02am 05/18/2016 11 :15am Neutrophils (%) (Auto) 56.0 % 33-66 05/18/2016 11:02am 05/18/2016 11: 15am Lymphocytes (%) (Auto) 32.1 % 23-45 05/18/2016 11:02am 05/18/2016 11: 15am Monocytes (%) (Auto) 9.0 % 0-9.0 05/18/2016 11:0205/18/2016 11:15am Eosinophils (%) (Auto) 2.1 % 0-4 05/18/2016 11:02am 05/18/2016 11:15am Basophils (%) (Auto) 0.6 % 0-2 05/18/2016 11:02am 05/18/2016 11:15am Immature Granulocyte % (Auto) 0.2 % 0.0-0.5 05/18/2016 11:02am 2016 11:15am Absolute Neutrophils (auto) 3.7 T/MM3 1.8-7.7 05/18/2016 11:02am 2016 11:15am Absolute Lymphocytes (auto) 2.1 T/MM3 1-4.8 05/18/2016 11:02am 2016 11:15am Absolute Monocytes (auto) 0.6 T/MM3 0-0.8 05/18/2016 11:02am 2016 11:15am Absolute Eosinophils (auto) 0.1 T/MM3 0-0.5 05/18/2016 11:02am 2016 11:15am Absolute Basophils (auto) 0.0 T/MM3 0-0.2 05/18/2016 11:022016 11:15am Absolute Immature Granulocyte (auto 0.01 T/MM3 0.00-0.03 05/18/2016 11: 02am 05/18/2016 11:15am Icterus Index < 2 0-7 05/18/2016 11:0205/18/2016 11:27am Chemistry Specimen Hemolysis < 15 0-25 05/18/2016 3:04pm 05/18/2016 3 :35pm 0-25: Specimen Exhibited No Hemolysis. Turbidity < 20 0-20 05/18/2016 11:02am 05/18/2016 11:27am Sodium Level 143 MEQ/L 134-144 05/18/2016 11:02am 05/18/2016 11:27am Potassium Level 3.6 MEQ/L 3.6-5 05/18/2016 11:02am 05/18/2016 11:27am Chloride Level 111 MEQ/L H 98-107 05/18/2016 11:02am 05/18/2016 11:27am Carbon Dioxide Level 25 MEQ/L 22-30 05/18/2016 11:02am 05/18/2016 11: 27am Anion Gap 7 MEQ/L 5-15 05/18/2016 11:02am 05/18/2016 11:27am Blood Urea Nitrogen 13.0 MG/DL 9-05/18/2016 11:02am 05/18/2016 11: 27am Creatinine 0.8 MG/DL 0.8-1.5 05/18/2016 11:0205/18/2016 11:27am BUN/Creatinine Ratio 16 RATIO 6-26 05/18/2016 11:02am 05/18/2016 11: 27am Glomerular Filtration Rate Calc 104 05/18/2016 11:0205/18/2016 11:27am Glucose Level 91 MG/DL 75-110 05/18/2016 11:0205/18/2016 11:27am Calculated Osmolality 275 MOSM/KG 261-280 05/18/2016 11:022016 11:27am Calcium Level 8.8 MG/DL 8.4-10.2 05/18/2016 11:0205/18/2016 11:27am Total Bilirubin 1.10 MG/DL 0.20-1.30 05/18/2016 11:0205/18/2016 11: 27am Alkaline Phosphatase 50 U/L 38-126 05/18/2016 11:0205/18/2016 11: 27am Total Protein 6.4 G/DL 6.3-8.2 05/18/2016 11:0205/18/2016 11:27am Albumin 3.5 G/DL 3.5-5.0 05/18/2016 11:0205/18/2016 11:27am Globulin 2.9 G/DL 2.4-3.6 05/18/2016 11:0205/18/2016 11:27am Albumin/Globulin Ratio 1.2 RATIO 1.1-2.2 05/18/2016 11:02am 05/18/2016 11:27am Aspartate Amino Transf (AST/SGOT) 39 U/L 17-59 05/18/2016 11:02am 05/18 11:27am Alanine Aminotransferase (ALT/SGPT) 71 U/L 21-72 05/18/2016 11:02am 11:27am Troponin I 0.051 ng/ml 0-0.12 05/18/2016 3:04pm 05/18/2016 3:35pm Troponin values with a difference of 55% increase from orginal troponin value represent a true biological DELTA value. (%increase Calc=Orginal Troponin value, divided by subsequent Troponin value, multiplied by 100) Magnesium Level 2.1 MG/DL 1.6-2.3 05/18/2016 11:02am 05/18/2016 11: 27am Name: SPENSER CROW Unit #: [id number] : 1970 Sex: M Admit Date: 05/18/16 Loc / Svc: MED Discharge Date: DIAGNOSTIC IMAGING REPORT Report #: [id number] [facility] EDMOND De Oliveira INDICATION: ITS.REASON: chest pain PROCEDURE: CHEST 2-VIEWS UPRIGHT (PA \\T\\ LAT) Encounter: Initial Comparison: May 10, 2016 Findings: The lungs are stable in appearance without new focal airspace consolidation. There is no pleural effusion or pneumothorax. The heart size, pulmonary vascularity and mediastinal contours are unchanged. Left pacemaker defibrillator. IMPRESSION: Stable appearance of the chest without acute cardiopulmonary disease. . Procedures Procedure Status Date Provider(s) Routine venipuncture Completed 05/10/16 Routine venipuncture Completed 05/10/16 Routine venipuncture Completed 05/10/16 Routine venipuncture Completed 05/10/16 Chest x-ray 2vw frontal&latl Completed 05/10/16 Metabolic panel total ca Completed 05/10/16 Comprehen metabolic panel Completed 05/10/16 Lipid panel Completed 05/10/16 Assay of magnesium Completed 05/10/16 Assay of magnesium Completed 05/10/16 Assay thyroid stim hormone Completed 05/10/16 Assay of troponin quant Completed 05/10/16 Assay of troponin quant Completed 05/10/16 Assay of troponin quant Completed 05/10/16 Complete cbc w/auto diff wbc Completed 05/10/16 Complete cbc w/auto diff wbc Completed 05/10/16 Prothrombin time Completed 05/10/16 Electrocardiogram tracing Completed 05/10/16 Electrocardiogram tracing Completed 05/10/16 Tte w/doppler complete Completed 05/10/16 Behav chng smoking 3-10 min Completed 05/10/16 Behav chng smoking 3-10 min Completed 05/10/16 [id number] ITEM OR SERVICE Completed 05/10/16 [id number] ITEM OR SERVICE Completed 05/10/16 [id number] ITEM OR SERVICE Completed 05/10/16 [id number] ITEM OR SERVICE Completed 05/10/16 [id number] ITEM OR SERVICE Completed 05/10/16 [id number] ITEM OR SERVICE Completed 05/10/16 [id number] ITEM OR SERVICE Completed 05/10/16 [id number] ITEM OR SERVICE Completed 05/10/16 [id number] ITEM OR SERVICE Completed 05/10/16 [id number] ITEM OR SERVICE Completed 05/10/16 [id number] ITEM OR SERVICE Completed 05/10/16 [id number] ITEM OR SERVICE Completed 05/10/16 [id number] ITEM OR SERVICE Completed 05/10/16 [id number]"HOSPITAL OBSERVATION SERVICE, PER HOUR" Completed 05/10/16 [id number]"HOSPITAL OBSERVATION SERVICE, PER HOUR" Completed 05/10/16 [id number]"HOSPITAL OBSERVATION SERVICE, PER HOUR" Completed 05/10/16"HOSPITAL OBSERVATION SERVICE, PER HOUR" Completed 05/10/16"INJECTION, ENOXAPARIN SODIUM, 10 MG" Completed 05/10/16"INJECTION, ENOXAPARIN SODIUM, 10 MG" Completed 05/10/16 Encounters Encounter Location Arrival/Admit Date Discharge/Depart Date Attending Provider Discharged Inpatient (obs) [facility] 05/18/16 9:50am 05/18/16 6: 17pm KATIE WEIR MD Discharged Inpatient (obs) [facility] 05/10/16 11:25am 05/11/16 10:15am KATIE WEIR MD
[2016-06-28 18:30] VITALS: BP 101/68; PULSE 68; RESP 20; TEMP 98; O2SAT 98
[2016-06-28 18:34] VITALS: Ht 182.9 cm; Wt 86.3 kg
[2016-06-28] MEDS ORDERED: NITROGLYCERIN 0.4 MG SUBLINGUAL TABLET SL PRN ×2 (19:15)
[2016-06-28] MEDS ORDERED: FLUT9.9S (19:44)
--- NOTE | 2016-06-28 19:57 | NUR ---
admit Pt here at 1735 direct from [facility] via EMS. IV started by EMS, IVL in room after orders in for no fluids. Pt reporting chest heaviness, reported to Joe Ruffin APRN. N.O. in, meds recconsiled, and HX taken. Pt ambulating well in room with standby, knows to call if needing anything. Meal given.
[2016-06-28 20:36] VITALS: BP 103/69; PULSE 69; RESP 18; TEMP 97.8; O2SAT 95
[2016-06-28 20:45] VITALS: PULSE 71; RESP 22
[2016-06-28] MEDS: ATORVASTATIN 40 MG TABLET PO SCH (20:47)
[2016-06-28] MEDS: AMOXICILLIN 500 MG CAPSULE PO SCH (20:49)
[2016-06-28] MEDS ORDERED: SOTALOL 80 MG TABLET PO ONE (21:00)
[2016-06-28 23:29] VITALS: PULSE 72; RESP 22; O2SAT 94
[2016-06-28 23:41] VITALS: BP 106/67; PULSE 61; RESP 12; TEMP 97; O2SAT 97
[2016-06-29] VITALS (11 sets, daily range): BP systolic 100–121; BP diastolic 56–69; PULSE 34–73; RESP 14–30; TEMP 97.6–98.2; O2SAT 95–100
--- NOTE | 2016-06-29 00:31 | HPPDOC ---
KATHARINA WAITE PRE PRESS PROOFER 06/28/16 2341: HPI - Adult Date DATE: 06/28/16 TIME: 23:36 General Date of Admission Date of Admission: Jun 28, 2016 at 17:35 Chief Complaint: Chest pain History of Present Illness This is a 45 year old patient known to Dr. De Jesus for Dilated Cardiomyopathy, EF 20%, with a BiV/ICD. Today he went to [facility] in [place] for bilateral chest wall pain, fatigue, and some SOB. At [facility] he was found to have a elevated trop 0.61 (0- 0.05). Pro BNP 5195 ( 0-125), BMP and CBC normal. CXR: cardiac size is stable, leads unchanged, lungs clear. ECG: BiV paced. He was transferred as a direct admit to [facility] [place]. Last he felt flushed and was burning up and had diarrhea. Unknown if he had a fever. He took Tylenol for some relief. He had an occasional cough. On Tuesday he saw his PCP and was diagnosed with bronchitis and sinusitis and prescribed doxycycline. He had no CXR or labwork done. Since Tuesday and in fact since he competed Indomethacin in April, he has had constant soreness across his chest and on his left side ribs which is reproducible. He states he has not done any lifting or incurred any injury. He sits and watches tv a lot, but does some housework. He has not been cough hard or much. He has had fatigue since Nov 2015. He takes all his meds as prescribed. His weight has 190 - 187 # consistently. He does sleep on a couple of pillows. He does not feel fluid overloaded but has been more SOB and abdomen some distention. Last Tuesday about 12:30 he was awaken by a jerk he felt all over his body and wonders if his defibrillator went off. His ICD shocked him in 11/2015. this does not feel the same but he was asleep this time. Tuesday he visited with some friends and became flushed and clammy and went home and did not eat. He can see his heart beating sometimes. Hx: He was admitted in 05/10 - 05/11/2016 and 05/18 - 05/19/2016 for similar symptoms. He had dull ache across his chest reproducible on palpation. and had chest congestion. He went to [facility] both times and found to have a slightly elevated trop. Repeat trop in [facility] [place] were negative both times. He was Dx with costochondritis and DC on Indomethacin the first time and on Aleve the second time which provided relief. His BNP 04/2016 3414 and today is 5195 at [facility]. Hx Cardiac procedures: 12/08/2016 echo: EF 20%, global hypokinesia, LAE, LVE, mod MR, mild TR, PAP 37, mild PI. 02/18/2014 BiV/ICD - Medtronic implanted. 11/05/2013 heart cath: EF 10%, LVE, LVEDP 23, Coronaries normal. WE admitted him for chest wall pain and elevated trop. Past Medical History Past Medical History Metabolic: hypertension Cardiac: CHF (CSHF, cardiomyopathy, EF 20% per 2016 echo. ) Surgical History General: gallbladder Cardiac: cardiac cath (EF 10%, coronaries normal 10/2013), other (BiV/ICD - Medtronic. 01/2014) Current Medications Home Meds Active Scripts Potassium Chloride (Klor-Con M10) 10 Meq Tablet, 10 MEQ PO WB for 30 Days, #30 TAB 11 Refills Prov:ANA CRISTINA DUMONT PRE PRESS PROOFER 05/18/16 Sacubitril/Valsartan (Entresto 24 mg-26 mg Tablet) 1 Each Tablet, 1 TAB PO BID for 30 Days, #60 TAB 11 Refills Prov:ANA CRISTINA DUMONT PRE PRESS PROOFER 05/18/16 Sotalol HCl (Betapace) 80 Mg Tablet, 40 MG PO ACBID for 30 Days, #30 TAB 11 Refills Prov:ANA CRISTINA DUMONT PRE PRESS PROOFER 12/11/15 Carvedilol (Coreg) 6.25 Mg Tablet, 6.25 MG PO BIDWM for 30 Days, #60 TAB 11 Refills Prov:ANA CRISTINA DUMONT LEILA 12/11/15 Reported Medications Fluticasone Propionate (Flonase Allergy Relief 50 mcg/actuation Nasal) 9.9 Ml [place].susp 06/28/16 Amoxicillin (Amoxicillin) 500 Mg Capsule, 1 CAP PO BID, CAP 05/10/16 Atorvastatin Calcium (Atorvastatin Calcium) 40 Mg Tablet, 1 TAB PO HS, TAB 05/10/16 Pantoprazole Sodium (Pantoprazole Sodium) 40 Mg Tablet.dr, 40 MG PO ACB, TAB Take 1 tablet, by mouth, daily before breakfast. 05/10/16 Aspirin (Aspir 81) 81 Mg Tablet.dr, 1 TAB PO DAILY, TAB 02/20/14 Furosemide (Furosemide) 40 Mg Tablet, 40 MG PO DAILY, #30 02/20/14 Spironolactone (Spironolactone) 25 Mg Tablet, 25 MG PO DAILY, #30 02/20/14 Allergies: Coded Allergies: NKDA (Verified Allergy, Unknown, 06/28/16) Family History Family History Comments Adopted. 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 ), DENIES: dizziness Comments flushed and burning up 2 x this week on and Tuesday. Eyes General: DENIES: burning, watering ENMT Ears: DENIES: pain Balance: DENIES: vertigo Sinuses: FOUND: congestion Nose: FOUND: other (congestion. ) Mouth/Throat: DENIES: scratchy throat, sore throat Cardiovascular chest pain, orthopnea (sleeps with a couple of pillows. ) Rhythm/Rate: DENIES: irregular beat, palpitations, tachycardia Vascular: DENIES: pedal edema Pulmonary Respiratory: cough (occassional - did not cough during interview. ), dyspnea ( a little. ), pleuritic chest pain, DENIES: hyperventilation, sputum, tachypnea GI Upper Abdomen: abdominal swelling (maybe), DENIES: nausea, vomiting Lower Abdomen: diarrhea (on - resolved. ) General: frequency (with lasix. ), DENIES: dysuria, hematuria Musculoskeletal General: tenderness (across chest. reproducible on palpation. ), DENIES: cramps , edema, joint pain, joint swelling Integumentary Skin: DENIES: lesion, rash Nails: DENIES: cupping, pitting Neurological General: DENIES: headache, syncope Psychiatric Psychiatric: DENIES: anxiety, depression Endocrine DENIES: heat/cold intolerance Hematologic/Lymphatic DENIES: easy bruising Physical Exam General General Nourishment: well nourished, well developed General Body Habitus: well groomed Vital Signs Vital Signs Date Time Temp Pulse Resp B/P Pulse Ox O2 Delivery O2 Flow Rate FiO2 06/28/16 20:48 70 06/28/16 20:45 22 06/28/16 20:36 97.8 103/69 95 Room Air Height (Feet): 6 Height (Inches): 0.00 Telemetry Rhythm: Vpaced Eyes Brief: NOT FOUND: scleral icterus ENMT Brief: FOUND: hearing intact, mucosa moist, normal dentition Neck Brief: FOUND: midline, NOT FOUND: JVD, carotid bruits Respiratory Brief: FOUND: clear all rodriguez, equal bilaterally Cardiovascular (brief) Cardiac Brief: FOUND: other (pedal pulses palpable. ), regular rate, regular rhythm, NOT FOUND: murmur, pedal edema Abdomen (brief) Abdominal Brief: FOUND: BS normo active x4, distended, other (last BM today. ) , soft, tender Musculoskeletal (brief) Musculoskeletal Brief: FOUND: extremities move equally Integumentary (brief) Integumentary Brief: FOUND: dry, pink, warm Neurologic (brief) Neurological Brief: FOUND: motor, sensory, NOT FOUND: facial droop, ptosis Neurologic RN Documented GCS Eye Opening: Verbal: Motor: Total: Psychiatric (brief) FOUND: alert, attentive, normal affect, oriented Laboratory Labs from [facility]: WBC 7.5, Hbg 16.2, Ptls 248, GLU 99, BUN 13, Cr 1.2, GFR 64, Na 140, K+ 4.3, Cl 104, CO2 29, Trop 0.61 (0-0.05, PBNP 5195 (0-125 ). EKG 06/28/2016 ECG: BiV paced. Radiology 06/28/2016 CXR at [facility] in [place]: Heart size stable, lungs clear. Assessment & Plan Problems: (1) Elevated troponin Status: Acute Assessment & Plan: Trop in [place] was 0.60 - slightly elevated. Order Serial trop. ECG: BiV paced. C/O chest wall pain reproducible on palpation. No excessive work or injury. This in non cardiac. This is chest wall pain. [place] Aleve , Naproxen BID. (2) Chest wall pain, chronic Status: Chronic Assessment & Plan: Aleve, naproxen BID He maybe achy from inactivity and deconditioning. Advised he get moving and exercising, highly recommend walking. He has a workout center and track accessible to him daily where he lives. Suggest he find a hobby or help others. I wonder if the statin is causing muscle aches. should he stop statin for 2 to 4 weeks and determine if this makes a difference. (3) Cardiomyopathy Onset Date: 02/20/2014 Status: Chronic Qualifiers: Cardiomyopathy type: dilated Qualified Codes: I42.0 - Dilated cardiomyopathy Assessment & Plan: EF 20:% per last echo. Cont Coreg 6.25mg BID, Entresto 49/ 51 mg daily. spironolactone 25mg daily. and lasix 40mg and KCL 10mEq daily. s/p BiV/ICD. ECG shows BiV paced. He can not afford Entreasto [place] $400.00. He only has 6 doses of samples of Entrestro left and has not received any paperwork to fill out to obtain for free. I will email Queta, nurse in office to pursue this. He likely qualifies for free from the [employer]. Otherwise will ne (4) CHF (congestive heart failure) Qualifiers: Congestive heart failure type: systolic Congestive heart failure chronicity : chronic Qualified Codes: I50.22 - Chronic systolic (congestive) heart failure Assessment & Plan: BNP elevated at 5195 today. It was 3414 in 04/2016. Although weight up only a couple of pounds - he states it is steady. no JVD. Abdomen distended. no edema in legs. Laying in bed with HOB up. He thinks he maybe fluid up. Will give him lasix 40mg IV x1. Monitor I/O, Wt, lytes and renal function. discussed heart failure in detail: Cont to Wt self daily. EF 20 %, no/low salt. drink when thirsty. He actually looks pretty good. (5) Automatic implantable cardioverter-defibrillator in situ Status: Chronic Assessment & Plan: He feels he was shocked on Tuesday. also he has felt flushed and clammy a couple of times this last week. Interrogate defibrillator. (6) Essential (primary) hypertension Status: Chronic Assessment & Plan: BP on the low side likely due to cardiomyopathy. cont home meds. (7) Tobacco abuse Status: Chronic Assessment & Plan: States he has been down to 2 cigarettes daily. States he has quit as of today. (8) Sinus congestion Status: Acute Assessment & Plan: He does not appear to have an infection. Afebrile, WBC ok. some congestion. Stop ABX. cont Flonase prn and encourage use of NS nose spray or [place] pot as outpt. DVT Prophylaxis: Lovenox Code Status Full Code Hospital Course Summary Disclaimer The hospital course summary below is not to be considered part of the above Progress Note. ANA CRISTINA DUMONT PRE PRESS PROOFER 06/29/16 1406: Past Medical History Current Medications Home Meds Active Scripts Potassium Chloride (Klor-Con M10) 10 Meq Tablet, 10 MEQ PO WB for 30 Days, #30 TAB 11 Refills Prov:ANA CRISTINA DUMONT PRE PRESS PROOFER 05/18/16 Sacubitril/Valsartan (Entresto 24 mg-26 mg Tablet) 1 Each Tablet, 1 TAB PO BID for 30 Days, #60 TAB 11 Refills Prov:ANA CRISTINA DUMONT PRE PRESS PROOFER 05/18/16 Sotalol HCl (Betapace) 80 Mg Tablet, 40 MG PO ACBID for 30 Days, #30 TAB 11 Refills Prov:ANA CRISTINA DUMONT PRE PRESS PROOFER 12/11/15 Carvedilol (Coreg) 6.25 Mg Tablet, 6.25 MG PO BIDWM for 30 Days, #60 TAB 11 Refills Prov:ANA CRISTINA DUMONT PRE PRESS PROOFER 12/11/15 Reported Medications Fluticasone Propionate (Flonase Allergy Relief 50 mcg/actuation Nasal) 9.9 Ml [place].susp 06/28/16 Amoxicillin (Amoxicillin) 500 Mg Capsule, 1 CAP PO BID, CAP 05/10/16 Atorvastatin Calcium (Atorvastatin Calcium) 40 Mg Tablet, 1 TAB PO HS, TAB 05/10/16 Pantoprazole Sodium (Pantoprazole Sodium) 40 Mg Tablet.dr, 40 MG PO ACB, TAB Take 1 tablet, by mouth, daily before breakfast. 05/10/16 Aspirin (Aspir 81) 81 Mg Tablet.dr, 1 TAB PO DAILY, TAB 02/20/14 Furosemide (Furosemide) 40 Mg Tablet, 40 MG PO DAILY, #30 11/26/14 Spironolactone (Spironolactone) 25 Mg Tablet, 25 MG PO DAILY, #30 02/20/14 Allergies: Coded Allergies: NKDA (Verified Allergy, Unknown, 06/28/16) Assessment & Plan Plan/Intensity of Service Frequent PVCs this morning on telemetry. Patient reports SOA and dizziness. Stop Sotalol and start Amiodarone 150mg IV bolus and then drip. Continue to monitor telemetry and repeat EKG in AM. Lasix 40mg IV q12h for diuresis, BNP over 5000, Chest x-ray in am KATHARINA WAITE PRE PRESS PROOFER Jun 28, 2016 23:41 ANA CRISTINA DUMONT PRE PRESS PROOFER Jun 29, 2016 14:06
[2016-06-29] MEDS ORDERED: FUROSEMIDE 40 MG/4 ML INJECTION IV ONE (00:45)
[2016-06-29] MEDS ORDERED: DOCUSATE SODIUM 100 MG CAPSULE PO PRN (01:30)
[2016-06-29] MEDS ORDERED: ONDANSETRON 4mg/2ml INJECTION IM PRN (01:30)
[2016-06-29] MEDS ORDERED: ACETAMINOPHEN 325 MG TABLET PO PRN (01:30)
[2016-06-29] MEDS ORDERED: SALINE NASAL SPRAY 45ml EA NOSTRIL PRN (01:30)
[2016-06-29] MEDS: NAPROXEN 220 MG TABLET PO SCH ×3 (02:19→18:05)
--- NOTE | 2016-06-29 05:01 | NUR ---
PT ALERT AND ORIENTED. STAND BY ASSIST FOR TRANSFERS. IV LOCK IN THE LT FOREARM, WAS STARTED BY EMS, WILL NEED A NEW SIGHT. PT HAS HAD GOOD INTAKE AND OUTPUT FOR SHIFT. PT REPORTS SLIGHT PAIN/HEAVINESS IN THE CHEST/BREAST AREA, SIFTER OPERATOR ORDERED NAPROXEN SODIUM, PT WAS ABLE TO SLEEP. PT HAS A [employer] PACEMAKER/DEFIBRILLATOR, [employer] TO COME OUT TO INTERROGATE PACEMAKER TODAY.
[2016-06-29] MEDS: SOTALOL 80 MG TABLET PO SCH ×2 (06:29→18:05)
[2016-06-29] MEDS: PANTOPRAZOLE 40 MG TABLET PO SCH (06:29)
[2016-06-29 07:25] LABS: ANION GAP 12 MEQ/L (5-15); BUN/CREATININE RATIO 16 RATIO (6-26); CALCIUM 9.3 MG/DL (8.4-10.2); CHLORIDE 107 MEQ/L (98-107); CO2 - CARBON DIOXIDE 24 MEQ/L (22-30); CREATININE 1.1 MG/DL (0.8-1.5); GLOMERULAR FILTRATION RATE 72; GLUCOSE 106 MG/DL (75-110); POTASSIUM 3.7 MEQ/L (3.6-5); SODIUM 143 MEQ/L (134-144)
--- NOTE | 2016-06-29 07:41 | NUR ---
chest pressure pt reports chest pressure at report in am. pt put in Trendelenburg for blood flow. heart rate was 34bmp sitting up, bpm went up to 55 with Trendelenburg.
[2016-06-29] MEDS ORDERED: POTASSIUM CHLORIDE 10 MEQ TABLET PO SCH (08:00)
--- NOTE | 2016-06-29 08:55 | NUR ---
CM CM IN TO VISIT PATIENT, HE IS A&O. FEMALE IS PRESENT AT THE BEDSIDE. PATIENT PLANS TO DISCHARGE HOME, DENIES ANY DISCHARGE NEEDS. CM CONTACT INFORMATION GIVEN. Addendum: 06/29/16 at 0858 by JAYLEN HERNANDEZ RN Amended: Links added.
[2016-06-29] MEDS ORDERED: FLUTICASONE NASAL SPRAY 50 MCG EA NOSTRIL PRN (09:00)
[2016-06-29] MEDS ORDERED: FLUTICASONE NASAL SPRAY 50 MCG EA NOSTRIL SCH (09:00)
[2016-06-29] MEDS ORDERED: FUROSEMIDE 40 MG TABLET PO SCH (09:00)
[2016-06-29] MEDS ORDERED: AMIODARONE 150 MG in NORMAL SALINE 100 ML IV ONE (09:00)
[2016-06-29] MEDS ORDERED: AMIODARONE 900 MG in NORMAL SALINE 500 ML IV SCH ×2 (09:00→15:00)
[2016-06-29] MEDS: ASPIRIN *EC* 81mg TABLET PO SCH (09:07)
[2016-06-29] MEDS: SPIRONOLACTONE 25 MG TABLET PO SCH (09:07)
[2016-06-29] MEDS: AMOXICILLIN 500 MG CAPSULE PO SCH ×2 (09:07→21:05)
[2016-06-29] MEDS: CARVEDILOL 6.25 MG TABLET PO SCH ×2 (09:07→18:06)
[2016-06-29] MEDS: ENOXAPARIN 40 MG/0.4 ML INJECTION SQ SCH (09:08)
[2016-06-29] MEDS: FUROSEMIDE 40 MG/4 ML INJECTION IV SCH ×2 (14:09→21:06)
--- NOTE | 2016-06-29 15:16 | NUR ---
AMIODARONEDRIP DECREASED AMIO DRIP TO 16.67 AT 1500.
--- NOTE | 2016-06-29 17:50 | NUR ---
CHEST PRESSURE PT REPORTS CHEST PRESSURE FROM TIME TO TIME. PT IS REMINDED TO DEEP BREATH AND COUGH. NO PRN'S GIVEN AT THIS TIME. TELE IS PACED AND VITALS ARE WNL.
[2016-06-29] MEDS: ATORVASTATIN 40 MG TABLET PO SCH (21:06)
--- NOTE | 2016-06-29 23:22 | NUR ---
SHIFT PT HAS BEEN PLEASANT AND COOPERATIVE ALL SHIFT. PT IS A&OX3, UP WITH ONE ASSIST, STAND BY FOR LIGHT HEADEDNESS AND DIZZINESS. PT DENIES SOA AND N/V BUT CONTINUES TO REPORT TIGHTNESS IN CHEST. DR. WEIR IS AWARE. PT HAS HAD ADEQUATE OUTPUT IN URINAL AND REFUSES WALKING ACTIVITY. NO BM THIS SHIFT. GIRLFRIEND IS AT BEDSIDE. PT IS ON ROOM AIR. NO OTHER CHANGES SINCE PREVIOUS NOTE.
[2016-06-30] VITALS (7 sets, daily range): BP systolic 83–106; BP diastolic 55–65; PULSE 60–68; RESP 12–20; TEMP 97.7–98.4; O2SAT 96–98
[2016-06-30] MEDS: PANTOPRAZOLE 40 MG TABLET PO SCH (05:57)
[2016-06-30] MEDS: SOTALOL 80 MG TABLET PO SCH (05:57)
--- NOTE | 2016-06-30 06:54 | NUR ---
Pt rested well during the night. SBP at 0400 was low. Pt denies dizziness.
[2016-06-30 07:56] LABS: HGB - HEMOGLOBIN 15.8 GM/DL (13.5-17.5); MEAN CORPUSCULAR HGB 33.7 UUG (26-34); MEAN CORPUSCULAR HGB CONC(MCHC 34.3 GM/DL (31-37); MEAN CORPUSCULAR VOLUME 98.1 UM3 (80-100); RED BLOOD COUNT 4.69 M/MM3 (4.50-5.90); WBC - WHITE BLOOD COUNT 12.1 T/MM3 (4.5-11.0)
[2016-06-30] MEDS ORDERED: CARVEDILOL 12.5 MG TABLET PO SCH (08:00)
[2016-06-30 08:01] LABS: ANION GAP 13 MEQ/L (5-15); BUN/CREATININE RATIO 16 RATIO (6-26); CALCIUM 8.7 MG/DL (8.4-10.2); CHLORIDE 104 MEQ/L (98-107); CO2 - CARBON DIOXIDE 24 MEQ/L (22-30); CREATININE 1.1 MG/DL (0.8-1.5); GLOMERULAR FILTRATION RATE 72; GLUCOSE 101 MG/DL (75-110); POTASSIUM 3.7 MEQ/L (3.6-5); SODIUM 141 MEQ/L (134-144)
--- NOTE | 2016-06-30 08:41 | DI ---
Indication: ITS.REASON: diuresis PROCEDURE: CHEST 1 VIEW: Encounter: Initial Comparison: May 18, 2016 Findings: The lungs are stable and clear. No pleural effusion or pneumothorax. Heart size and mediastinal contours are stable. Left cardiac pacemaker defibrillator. Pulmonary vascularity is normal. Impression: Stable chest without acute cardiopulmonary disease. .
[2016-06-30] MEDS: ENOXAPARIN 40 MG/0.4 ML INJECTION SQ SCH (08:53)
[2016-06-30] MEDS: AMOXICILLIN 500 MG CAPSULE PO SCH (08:53)
[2016-06-30] MEDS: ASPIRIN *EC* 81mg TABLET PO SCH (08:55)
[2016-06-30] MEDS: SPIRONOLACTONE 25 MG TABLET PO SCH (08:55)
[2016-06-30] MEDS: NAPROXEN 220 MG TABLET PO SCH (08:55)
[2016-06-30] MEDS ORDERED: AMIODARONE 200 MG TABLET PO SCH (09:00)
[2016-06-30] MEDS ORDERED: FUROSEMIDE 40 MG TABLET PO SCH (09:00)
[2016-06-30] MEDS ORDERED: POTA10TA16 PO (11:38)
[2016-06-30] MEDS ORDERED: CARV12.5 PO (11:38)
[2016-06-30] MEDS ORDERED: FURO40TA5 PO (11:38)
[2016-06-30] MEDS ORDERED: SACU1TAB7 PO (11:38)
[2016-06-30] MEDS ORDERED: AMIO200T7 PO (11:38)
--- NOTE | 2016-06-30 12:44 | DSPDOC ---
ANA CRISTINA DUMONT MACHINE REBUILDER 06/30/16 1153: General Date Date DATE: 06/30/16 TIME: 11:52 Attending Physician Sonido Weir MD Admitting Physician Sonido Weir MD Consulting Physician Admitting Diagnosis CHF Discharge Diagnosis Systolic CHF History of Present Illness This is a 45 year old patient known to Dr. Weir for Dilated Cardiomyopathy, EF 20%, with a BiV/ICD. Today he went to [facility] in [place] for bilateral chest wall pain, fatigue, and some SOB. At [facility] he was found to have a elevated trop 0.61 (0- 0.05). Pro BNP 5195 ( 0-125), BMP and CBC normal. CXR: cardiac size is stable, leads unchanged, lungs clear. ECG: BiV paced. He was transferred as a direct admit to [facility]. Last he felt flushed and was burning up and had diarrhea. Unknown if he had a fever. He took Tylenol for some relief. He had an occasional cough. On Tuesday he saw his PCP and was diagnosed with bronchitis and sinusitis and prescribed doxycycline. He had no CXR or labwork done. Since Tuesday and in fact since he competed Indomethacin in April, he has had constant soreness across his chest and on his left side ribs which is reproducible. He states he has not done any lifting or incurred any injury. He sits and watches tv a lot, but does some housework. He has not been cough hard or much. He has had fatigue since Nov 2015. He takes all his meds as prescribed. His weight has 190 - 187 # consistently. He does sleep on a couple of pillows. He does not feel fluid overloaded but has been more SOB and abdomen some distention. Last Tuesday about 12:30 he was awaken by a jerk he felt all over his body and wonders if his defibrillator went off. His ICD shocked him in 11/2015. this does not feel the same but he was asleep this time. Tuesday he visited with some friends and became flushed and clammy and went home and did not eat. He can see his heart beating sometimes. Hx: He was admitted in 05/10 - 05/11/2016 and 05/18 - 05/19/2016 for similar symptoms. He had dull ache across his chest reproducible on palpation. and had chest congestion. He went to [facility] both times and found to have a slightly elevated trop. Repeat trop in [facility] were negative both times. He was Dx with costochondritis and DC on Indomethacin the first time and on Aleve the second time which provided relief. His BNP 04/2016 3414 and today is 5195 at [facility]. Hx Cardiac procedures: 12/08/2016 echo: EF 20%, global hypokinesia, LAE, LVE, mod MR, mild TR, PAP 37, mild PI. 02/18/2014 BiV/ICD - [employer] implanted. 11/05/2013 heart cath: EF 10%, LVE, LVEDP 23, Coronaries normal. WE admitted him for chest wall pain and elevated trop. Objective Vital Signs Vital signs Vital Signs 06/30/16 06/30/16 06/30/16 06/30/16 00:03 04:22 05:57 07:51 Temp 97.7 98.4 98.1 Pulse 60 62 69 60 Resp 20 12 16 B/P 106/65 83/59 99/61 Pulse Ox 98 96 98 O2 Delivery Room Air Room Air Room Air 06/30/16 06/30/16 06/30/16 06/30/16 08:00 09:33 10:30 10:30 Pulse 60 60 60 68 B/P 103/64 101/58 93/62 06/30/16 06/30/16 10:30 11:13 Temp 97.8 Pulse 60 60 Resp 16 B/P 94/62 102/55 Pulse Ox 97 Telemetry Rhythm: Vpaced Height (Feet): 6 Height (Inches): 0.00 Weight (Kilograms): 86.300 General Alert, Orientated x 3, Cooperative, No Acute Distress ENMT (Brief) mucosa moist Neck (Brief) NOT FOUND: JVD, carotid bruits Respiratory (Brief) clear all rodriguez, equal bilaterally, NOT FOUND: rales, wheezes Cardiovascular (Brief) regular rate, regular rhythm, NOT FOUND: click, gallop, murmur, pedal edema, rub Abdomen (Brief) BS normo active x4, soft Integumentary (Brief) dry, warm Psychiatric (Brief) alert, oriented Laboratory Laboratory Laboratory Tests Test 06/29/16 01:00 06/29/16 07:07 06/29/16 12:06 06/30/16 05:58 Troponin I 0.035ng/ml 0.038ng/ml 0.033ng/ml Chemistry Specimen Hemolysis < 15 < 15 < 15 < 15 Turbidity < 20 < 20 Sodium Level 143MEQ/L 141MEQ/L Potassium Level 3.7MEQ/L 3.7MEQ/L Chloride Level 107MEQ/L 104MEQ/L Carbon Dioxide Level 24MEQ/L 24MEQ/L Anion Gap 12MEQ/L 13MEQ/L Blood Urea Nitrogen 18.0MG/DL 18.0MG/DL Creatinine 1.1MG/DL 1.1MG/DL Glomerular Filtration Rate Calc 72 72 BUN/Creatinine Ratio 16RATIO 16RATIO Glucose Level 106MG/DL 101MG/DL Calculated Osmolality 277MOSM/KG 273MOSM/KG Calcium Level 9.3MG/DL 8.7MG/DL Magnesium Level 2.1MG/DL Icterus Index < 2 < 2 Thyroid Stimulating Hormone (TSH) 1.60MIU/L White Blood Count 12.1T/MM3 Red Blood Count 4.69M/MM3 Hemoglobin 15.8GM/DL Hematocrit 46.0% Mean Corpuscular Volume 98.1UM3 Mean Corpuscular Hemoglobin 33.7UUG Mean Corpuscular Hemoglobin Concent 34.3GM/DL RDW Standard Deviation 45.1FL Platelet Count 224T/MM3 Mean Platelet Volume 11.0UM3 LI-Dup-K-Type Natriuretic Peptide 2170PG/ML Laboratory Tests 06/30/16 05:58 Laboratory Tests 06/30/16 05:58 Medications Current Medications Amoxicillin (Amoxil) 500 mg BID PO Last administered on 06/30/16 08:53; Start 06/28/16 at 21:00 Aspirin (Ecotrin) 81 mg DAILY PO Last administered on 06/30/16 08:55; Start 06/29/16 at 09:00 Atorvastatin Calcium (LIPITOR 40 mg) 40 mg HS PO Last administered on 06/29/16 21:06; Start 06/28/16 at 22:00 Pantoprazole Sodium (Protonix) 40 mg ACB PO Last administered on 06/30/16 05:57 ; Start 06/29/16 at 06:30 Sacubitril/ Valsartan (ENTRESTO 24mg/ 26mg) 1 tab BID PO Last administered on 20:49; Start 06/28/16 at 21:00; Stop 06/28/16 at 23:03; Status DC Spironolactone (Aldactone) 25 mg DAILY PO Last administered on 06/30/16 08:55; Start 06/29/16 at 09:00 Nitroglycerin (Nitrostat) 0.4 mg Q5MIN PRN SL CHEST PAIN; Start 06/28/16 at 19: 15; Status UNV Sotalol HCl (Betapace) 40 mg O ONCE PO Last administered on 06/28/16 20:48; Start 06/28/16 at 21:00; Stop 06/29/16 at 08:57; Status DC Enoxaparin Sodium (Lovenox) 40 mg DAILY SQ Last administered on 06/30/16 08:53 ; Start 06/29/16 at 09:00 Naproxen Sodium (ALEVE 220 mg) 220 mg BIDWM PO Last administered on 06/30/16 08 :55; Start 06/29/16 at 01:30 Acetaminophen (Tylenol Regular Strength) 650 mg Q5H PRN PO DISCOMFORT; Start at 01:30 Ondansetron HCl (Zofran) 4 mg Q6H PRN IM NAUSEA &/OR VOMITING; Start 06/29/16 at 01:30 Docusate Sodium (Colace) 100 mg DAILY PRN PO CONSTIPATION; Start 06/29/16 at 01: 30 Sodium Chloride (DEEP SEA Nasal [place]) 1 spray PRN PRN EA NOSTRIL Last administered on 06/30/16 08:56; Start 06/29/16 at 01:30 Fluticasone Propionate (Flonase) 1 spray BID PRN EA NOSTRIL ; Start 06/29/16 at 09:00 Sacubitril/ Valsartan 2 tab 2 tab BID PO Last administered on 06/30/16 08:54; Start 06/29/16 at 09:00; Stop 06/30/16 at 11:33; Status DC Amiodarone HCl 150 mg/Sodium Chloride 103 ml @ 600 mls/hr NOW ONCE IV Last administered on 06/29/16 09:11; Start 06/29/16 at 09:00; Stop 06/29/16 at 09:10; Status DC Amiodarone HCl 900 mg/Sodium Chloride 518 ml @ 33.33 mls/ hr [id number] IV Last administered on 06/29/16 09:11; Start 06/29/16 at 09:00; Stop 06/29/16 at 15:00; Status DC Amiodarone HCl/ Sodium Chloride (Cordarone/NS) 518 ml @ 16.67 mls/ hr Q24H IV ; Start 06/29/16 at 15:00; Stop 06/30/16 at 08:52; Status DC Carvedilol (Coreg) 12.5 mg BIDWM PO Last administered on 06/30/16 09:36; Start 06/30/16 at 08:00 Potassium Chloride (Kdur) 10 meq BIDWM PO ; Start 06/30/16 at 17:30 Furosemide (Lasix) 40 mg BID. PO Last administered on 06/30/16 08:58; Start 06/30/16 at 09:00 Amiodarone HCl (Pacerone) 200 mg DAILY PO Last administered on 06/30/16 09:36; Start 06/30/16 at 09:00 Sacubitril/ Valsartan (ENTRESTO 49mg/ 51mg) 1 each BID PO ; Start 06/30/16 at 21: 00; Status UNV Radiology DATE OF EXAM: 06/30/16 ORDERING DOCTOR: ANA CRISTINA DUMONT APRN TYPE OF EXAM: CHEST 1 VIEW REASON FOR EXAM: diuresis Indication: ITS.REASON: diuresis PROCEDURE: CHEST 1 VIEW: Encounter: Initial Comparison: May 18, 2016 Findings: The lungs are stable and clear. No pleural effusion or pneumothorax. Heart size and mediastinal contours are stable. Left cardiac pacemaker defibrillator. Pulmonary vascularity is normal. Impression: Stable chest without acute cardiopulmonary disease. Hospital Course 06/29/16 Frequent PVCs this morning on telemetry. Patient reports SOA and dizziness. Stop Sotalol and start Amiodarone 150mg IV bolus and then drip. Continue to monitor telemetry and repeat EKG in AM. Lasix 40mg IV q12h for diuresis, BNP over 5000, Chest x-ray in am Problems: (1) Elevated troponin Status: Acute Assessment & Plan: Trop in [place] was 0.60 - slightly elevated. Order Serial trop. ECG: BiV paced. C/O chest wall pain reproducible on palpation. No excessive work or injury. This in non cardiac. This is chest wall pain. Josef Aleve , Naproxen BID. (2) Chest wall pain, chronic Status: Chronic Assessment & Plan: Aleve, naproxen BID He maybe achy from inactivity and deconditioning. Advised he get moving and exercising, highly recommend walking. He has a workout center and track accessible to him daily where he lives. Suggest he find a hobby or help others. I wonder if the statin is causing muscle aches. should he stop statin for 2 to 4 weeks and determine if this makes a difference. (3) Cardiomyopathy Onset Date: 02/20/2014 Status: Chronic Assessment & Plan: EF 20:% per last echo. Cont Coreg 6.25mg BID, Entresto 49/ 51 mg daily. spironolactone 25mg daily. and lasix 40mg and KCL 10mEq daily. s/p BiV/ICD. ECG shows BiV paced. He can not afford [employer] $400.00. He only has 6 doses of samples of Entrestro left and has not received any paperwork to fill out to obtain for free. I will email Queta, nurse in office to pursue this. He likely qualifies for free from the [employer]. (4) CHF (congestive heart failure) Assessment & Plan: BNP elevated at 5195 today. It was 3414 in 04/2016. Although weight up only a couple of pounds - he states it is steady. no JVD. Abdomen distended. no edema in legs. Laying in bed with HOB up. He thinks he maybe fluid up. Will give him lasix 40mg IV x1. Monitor I/O, Wt, lytes and renal function. discussed heart failure in detail: Cont to Wt self daily. EF 20 %, no/low salt. drink when thirsty. He actually looks pretty good. (5) Automatic implantable cardioverter-defibrillator in situ Status: Chronic Assessment & Plan: He feels he was shocked on Tuesday. also he has felt flushed and clammy a couple of times this last week. Interrogate defibrillator. (6) Essential (primary) hypertension Status: Chronic Assessment & Plan: BP on the low side likely due to cardiomyopathy. cont home meds. (7) Tobacco abuse Status: Chronic Assessment & Plan: States he has been down to 2 cigarettes daily. States he has quit as of today. (8) Sinus congestion Status: Acute Assessment & Plan: He does not appear to have an infection. Afebrile, WBC ok. some congestion. Stop ABX. cont Flonase prn and encourage use of NS nose spray or [place] pot as outpt. Code Status Full Code Home Meds Active Scripts Potassium Chloride (Klor-Con M10) 10 Meq Tablet, 10 MEQ PO BIDWM for 30 Days, # 60 TAB 11 Refills Prov:ANA CRISTINA DUMONT MACHINE REBUILDER 06/30/16 Furosemide (Furosemide) 40 Mg Tablet, 40 MG PO BID. for 30 Days, #60 TAB 11 Refills Prov:ANA CRISTINA DUMONT MACHINE REBUILDER 06/30/16 Sacubitril/Valsartan (Entresto 49 mg-51 mg Tablet) 1 Each Tablet, 1 EACH PO BID for 30 Days, #60 TAB 11 Refills Prov:ANA CRISTINA DUMONT MACHINE REBUILDER 06/30/16 Carvedilol (Coreg) 12.5 Mg Tablet, 12.5 MG PO BIDWM for 30 Days, #60 TAB 11 Refills Prov:ANA CRISTINA DUMONT MACHINE REBUILDER 06/30/16 Amiodarone HCl (Pacerone) 200 Mg Tablet, 200 MG PO DAILY for 30 Days, #30 TAB 11 Refills Prov:ANA CRISTINA DUMONT MACHINE REBUILDER 06/30/16 Reported Medications Fluticasone Propionate (Flonase Allergy Relief 50 mcg/actuation Nasal) 9.9 Ml [place].susp 06/28/16 Atorvastatin Calcium (Atorvastatin Calcium) 40 Mg Tablet, 1 TAB PO HS, TAB 05/10/16 Pantoprazole Sodium (Pantoprazole Sodium) 40 Mg Tablet.dr, 40 MG PO ACB, TAB Take 1 tablet, by mouth, daily before breakfast. 05/10/16 Aspirin (Aspir 81) 81 Mg Tablet.dr, 1 TAB PO DAILY, TAB 02/20/14 Spironolactone (Spironolactone) 25 Mg Tablet, 25 MG PO DAILY, #30 02/20/14 Discontinued Reported Medications Amoxicillin (Amoxicillin) 500 Mg Capsule, 1 CAP PO BID, CAP 05/10/16 Furosemide (Furosemide) 40 Mg Tablet, 40 MG PO DAILY, #30 02/20/14 Discontinued Scripts Potassium Chloride (Klor-Con M10) 10 Meq Tablet, 10 MEQ PO WB for 30 Days, #30 TAB 11 Refills Prov:ANA CRISTINA DUMONT MACHINE REBUILDER 05/18/16 Sacubitril/Valsartan (Entresto 24 mg-26 mg Tablet) 1 Each Tablet, 1 TAB PO BID for 30 Days, #60 TAB 11 Refills Prov:ANA CRISTINA DUMONT MACHINE REBUILDER 05/18/16 Sotalol HCl (Betapace) 80 Mg Tablet, 40 MG PO ACBID for 30 Days, #30 TAB 11 Refills Prov:ANA CRISTINA DUMONT MACHINE REBUILDER 12/11/15 Carvedilol (Coreg) 6.25 Mg Tablet, 6.25 MG PO BIDWM for 30 Days, #60 TAB 11 Refills Prov:ANA CRISTINA DUMONT MACHINE REBUILDER 12/11/15 Discharge Disposition Discharged to home in good and stable condition in the care of himself. RX for Amiodarone and other dose changes for Coreg, Lasix and Potassium transmitted to [facility] pharmacy in [place]. Patient given 2 weeks supply of SONIDO Granados MD 07/02/16 1531: Hospital Course Home Meds Active Scripts Potassium Chloride (Klor-Con M10) 10 Meq Tablet, 10 MEQ PO BIDWM for 30 Days, # 60 TAB 11 Refills Prov:ANA CRISTINA DUMONT LEILA 06/30/16 Furosemide (Furosemide) 40 Mg Tablet, 40 MG PO BID. for 30 Days, #60 TAB 11 Refills Prov:ANA CRISTINA U[place]ONT MACHINE REBUILDER 06/30/16 Sacubitril/Valsartan (Entresto 49 mg-51 mg Tablet) 1 Each Tablet, 1 EACH PO BID for 30 Days, #60 TAB 11 Refills Prov:ANA CRISTINA DUMONT MACHINE REBUILDER 06/30/16 Carvedilol (Coreg) 12.5 Mg Tablet, 12.5 MG PO BIDWM for 30 Days, #60 TAB 11 Refills Prov:ANA CRISTINA DUMONT MACHINE REBUILDER 06/30/16 Amiodarone HCl (Pacerone) 200 Mg Tablet, 200 MG PO DAILY for 30 Days, #30 TAB 11 Refills Prov:ANA CRISTINA DUMONT MACHINE REBUILDER 06/30/16 Reported Medications Fluticasone Propionate (Flonase Allergy Relief 50 mcg/actuation Nasal) 9.9 Ml [place].susp 06/28/16 Atorvastatin Calcium (Atorvastatin Calcium) 40 Mg Tablet, 1 TAB PO HS, TAB 05/10/16 Pantoprazole Sodium (Pantoprazole Sodium) 40 Mg Tablet.dr, 40 MG PO ACB, TAB Take 1 tablet, by mouth, daily before breakfast. 05/10/16 Aspirin (Aspir 81) 81 Mg Tablet.dr, 1 TAB PO DAILY, TAB 02/20/14 Spironolactone (Spironolactone) 25 Mg Tablet, 25 MG PO DAILY, #30 02/20/14 Discontinued Reported Medications Amoxicillin (Amoxicillin) 500 Mg Capsule, 1 CAP PO BID, CAP 05/10/16 Furosemide (Furosemide) 40 Mg Tablet, 40 MG PO DAILY, #30 02/20/14 Discontinued Scripts Potassium Chloride (Klor-Con M10) 10 Meq Tablet, 10 MEQ PO WB for 30 Days, #30 TAB 11 Refills Prov:ANA CRISTINA DUMONT APRN 05/18/16 Sacubitril/Valsartan (Entresto 24 mg-26 mg Tablet) 1 Each Tablet, 1 TAB PO BID for 30 Days, #60 TAB 11 Refills Prov:ANA CRISTINA DUMONT APRN 05/18/16 Sotalol HCl (Betapace) 80 Mg Tablet, 40 MG PO ACBID for 30 Days, #30 TAB 11 Refills Prov:ANA CRISTINA DUMONT APRN 12/11/15 Carvedilol (Coreg) 6.25 Mg Tablet, 6.25 MG PO BIDWM for 30 Days, #60 TAB 11 Refills Prov:ANA CRISTINA DUMONT APRN 12/11/15 Discharge Disposition After examining the patient I agree with the above assessment. I am involved in the formulation of the patient's plan of care. ANA CRISTINA DUMONT APRN Jun 30, 2016 11:53 SONIDO WEIR MD Jul 02, 2016 15:31
--- NOTE | 2016-06-30 13:14 | NUR ---
Status Patient alert and oriented x3. VSS. On RA. Denies pain other than some "soreness" in chest. Up ad joão in room. IVL removed this morning after discharge orders. Patient has had adequate oral intake with no n/v/d. Adequate output. Girlfriend in room with patient. Awaiting discharge this afternoon.
--- NOTE | 2016-06-30 13:55 | NUR ---
Discharge Patient discharged to home at this time. Discharge instructions discussed with patient, who voiced understanding. Instructions sent home with patient. IV and telemetry discontinued. Belongings gathered and sent home with patient.
--- NOTE | 2016-06-30 15:39 | NUR ---
CM FOLLOW UP THIS WORKER SPOKE WITH PT BY PHONE AFTER DISCHARGE PT DID NOT RECEIVE HIS ORDERS FOR LAB WORK ON 07/05/16. PT REQUESTED LAB TO BE COMPLETED AT [facility]. THIS WORKER FAXED LAB TO [facility] ON THIS DATE. PT IS AWARE TO GET LAB DRAWN ON 07/05/16.
[2016-06-30] MEDS ORDERED: POTASSIUM CHLORIDE 10 MEQ TABLET PO SCH (17:30)
== END 2016-06-30 13:55 | disposition home or self-care (01) | DRG 293 ==
LOC: INTOOBSV 17:35 → MED 17:35 → OBSVTOIN 06-29 10:40
PROVIDERS: ADMIT Internal Medicine Cardiovascular Disease; ATTEND Internal Medicine Cardiovascular Disease
DX: I11.0 Hypertensive heart disease with heart failure (principal); I50.22 Chronic systolic (congestive) heart failure; I49.3 Ventricular premature depolarization; M94.0 Chondrocostal junction syndrome [Tietze]; I42.0 Dilated cardiomyopathy; R09.81 Nasal congestion; F17.210 Nicotine dependence, cigarettes, uncomplicated; Z79.82 Long term (current) use of aspirin; Z79.899 Other long term (current) drug therapy; Z95.810 Presence of automatic (implantable) cardiac defibrillator
CPT/HCPCS: 36415; 80048; 83735; 83880; 84443; 84484; 85027; 93005; 96365; 96372; 96375; 99218; 99406

== ENCOUNTER 2016-07-19 16:50 | Observation (INO) | payer MEDICARE, MEDICAID ==
[~2016-07-19] VITALS: Ht 182.9 cm; Wt 85.4 kg
[~2016-07-19 16:50] MED LIST changes: +AMIO200T7 PO; -AMOX500C2 PO; +CARV12.5 PO; -CARV6.25 PO; +FLUT9.9S INH; -SACU1TAB PO; +SACU1TAB7 PO; -SOTA80TA20 PO
--- OUTSIDE RECORDS SUMMARY | 2016-07-19 16:56 | XMS REPORT | Continuity of Care Document ---
Author Author [facility] Organization [facility] Address Unknown Phone Unavailable Allergies Active Description [...] 20 mg 20 mg , Oral, BID HYDROcodone-acetaminophen(Olga 5 mg-325 mg oral tablet) 04/03/2014 04/08/2014 [...] Oral 100 mg 1 caps, Oral, BID HYDROcodone-acetaminophen(Olga 5 mg-325 mg oral tablet) 04/08/2014 06/14/2014 [...] Oral 25 mg 25 mg, Oral, Daily HYDROcodone-acetaminophen(Olga 5 mg-325 mg oral tablet) 1 tabs [...] for immunization 12/30/2015 Gwen,, Wayneidy Final Z79.82 [facility] (current) use of aspirin 12/30/2015 Gwen,, Wayneidy Final Z79.899 Other fpc (current) drug therapy 12/30/2015 Gwen,, Wayneidy Final Z95.810 Presence of automatic (implantable) cardiac defibrillator Procedures Code Description Performed By Performed On 37.22 LEFT HEART CARDIAC CATH Neal LI, [facility] 11/04/2013 88.48 CONTRAST ARTERIOGRAM-LEG Neal LI, [facility] 11/04/2013 88.53 LT HEART ANGIOCARDIOGRAM Neal LI, [facility] 11/04/2013 88.56 CORONAR ARTERIOGR-2 CATH Neal LI, [facility] 11/04/2013 37.95 Implantation of automatic cardioverter/defibrillator lead(s) [...] Status Pt. Type Provider Facility Loc./Unit Complaint [id number] 11/04/2013 10:41:00 2013 18:28:00 DIS Outpatient Neal LI, [facility] [id number]
--- OUTSIDE RECORDS SUMMARY | 2016-07-19 16:56 | XMS REPORT ---
Author Author ALEXIS SALAMANCA [facility] Address Unknown Phone Unavailable Care Team Providers Care Materials And Corrosion Engineer Name Role Phone Dr. CORRIE LAWRENCE Primary [...]
--- OUTSIDE RECORDS SUMMARY | 2016-07-19 16:56 | XMS REPORT | Continuity of Care Document ---
Author Author [facility]ARY [facility] [place] Organization [facility] Address Unknown Phone Unavailable Care Team Providers Care Operations Chief Name Role Phone ISABELLE ZURITA MD Primary Care Physician [phone] Insurance Providers Guarantor Spenser Crow Address [address] [phone] Email DIRECT ADMIT 05/18/16 Payer [facility] [employer] Policy Number [id number] Subscriber's Name TristinSpenser Abiola Relationship 18 Self Effective Date 06/26/16 Expiration Date 07/25/16 Payer Medicare Policy Number [id number] Subscriber's Name TristinSpenser Culver Relationship 18 Self Advance Directives Directive Response Recorded Date/Time Dr Freitas Resuscitation Status Full Code 06/28/16 6:54pm Resuscitation Documents on File No 06/28/16 6:40pm DPOA for Healthcare Only No 06/29/16 12:31am Living Will No 06/28/16 6:40pm Problems Active Problems Medical Problem Onset Date Status Automatic implantable cardioverter-defibrillator in situ Unknown Chronic CHF (congestive heart failure) Unknown Cardiomyopathy 02/20/2014 Chronic Chest wall pain, chronic Unknown Chronic Elevated troponin Unknown Acute Essential (primary) hypertension Unknown Chronic Hypokalemia Unknown Resolved Low TSH level Unknown Acute Premature ventricular beats Unknown Chronic Sinus congestion Unknown Acute Tobacco abuse Unknown Chronic Medications Current Home Medications Medication Dose Units Route Directions Days Qty Instructions Start Date Amiodarone Hcl (Pacerone) 200 Mg Tablet 200 Mg Oral Daily 30 Days 30 Tablet 06/30/16 Aspirin (Aspir 81) 81 Mg Tablet.dr 1 Tab Oral Daily 02/20/14 Atorvastatin Calcium 40 Mg Tablet 1 Tab Oral Bedtime 05/10/16 Carvedilol (Coreg) 12.5 Mg Tablet 12.5 Mg Oral Twice Daily With Meals 30 Days 60 Tablet 06/30/16 Fluticasone Propionate (Flonase Allergy Relief 50 Mcg/Actuation Nasal) 9.9 Ml [place].susp 06/28/16 Furosemide 40 Mg Tablet 40 Mg Oral Give 0900 & 1700 30 Days 60 Tablet 06/30/16 Pantoprazole Sodium 40 Mg Tablet.dr 40 Mg Oral Before Breakfast Take 1 tablet, by mouth, daily before breakfast. 05/10/16 Potassium Chloride (Klor-Con M10) 10 Meq Tablet 10 Meq Oral Twice Daily With Meals 30 Days 60 Tablet 06/30/16 Sacubitril/Valsartan (Entresto 49 Mg-51 Mg Tablet) 1 Each Tablet 1 Each Oral Twice A Day 30 Days 60 Tablet 06/30/16 Spironolactone 25 Mg Tablet 25 Mg Oral Daily 30 02/20/14 Past Home Medications Medication Directions Ordered Status Amoxicillin 500 Mg Capsule, 1 Cap Oral Twice A Day 05/10/16 Discontinued Carvedilol (Coreg) 6.25 Mg Tablet, 6.25 Mg Oral Twice Daily With Meals Discontinued Furosemide 40 Mg Tablet, 40 Mg Oral Daily 02/20/14 Discontinued Losartan Potassium 25 Mg Tablet, 25 Mg Oral Daily 12/09/15 Discontinued Metoprolol Succinate 25 Mg Tab.er.24h, 25 Mg Oral Twice A Day 12/09/15 Discontinued Potassium Chloride (Klor-Con M10) 10 Meq Tablet, 10 Meq Oral Give With Breakfast 05/18/16 Discontinued Sacubitril/Valsartan (Entresto 24 Mg-26 Mg Tablet) 1 Each Tablet, 1 Tab Oral Twice A Day 05/18/16 Discontinued Sotalol Hcl (Betapace) 80 Mg Tablet, 40 Mg Oral Before Meals Twice A Day Discontinued Social History Social History Problem Response Recorded Date/Time Onset Date Status Reason for Hospitalization Chest pain, elevated troponin 06/30/2016 11:45am Not Applicable Not Applicable Hx Substance Use No 02/20/2014 10:47am Not Applicable Not Applicable Hx Alcohol Use No 02/20/2014 10:47am Not Applicable Not Applicable Has the pt used tobacco in the last 12 months Yes 06/28/2016 6:41pm Not Applicable Not Applicable Query Response Start Date Stop Date Smoking Status Current every day smoker Hospital Discharge Instructions Instructions: Care Instructions: I was in the hospital because (patient own words): "chest pain" Discharge Diet: Resume heart healthy diet Discharge Activity: May resume usual activity as tolerated. Follow Up Appointments: Follow up with Dr. Weir on: 07/07/16 at 2:20 Pending Lab / Results: No Pending Lab Patient Instructions: New prescriptions: Amiodarone 200mg daily. Stop Sotalol. Increase Coreg to 12.5mg every morning and evening, Lasix 40mg every morning and evening, potassium 10meq every morning and evening. have lab drawn on Tuesday to recheck potassium level. Expected Signs/Symptoms: N/A Notify Physician If: Chest pain or difficulty breathing. During Business Hours:: Call Dr. Weir's office at [phone]. After Business Hours:: Please call [phone] and have the torch operator page the physician. Pain Management/Treatment: N/A Wound/Incision Care: N/A Condition at time of discharge: Good Plan of Care Discharge Date 06/30/16 1:55pm Disposition 01 DISCHARGED HOME, SELF-CARE Instructions/Education Provided Heart Failure (DC) Prescriptions See Medication Section Care Plan and Goals See Discharge Instructions Section Functional Status Query Response Date Recorded Mobility Status Ambulatory June 28, 2016 6:31pm Assistive Devices None June 28, 2016 6:31pm Activity Limitations Weakness Fatigue Shortness of breath Syncope/fainting Pain Cough June 28, 2016 6:31pm Feeding Ability Independent June 28, 2016 6:31pm Toileting Ability Independent June 28, 2016 6:31pm Grooming Ability Independent June 28, 2016 6:31pm Dressing Ability Independent June 28, 2016 6:31pm Driving Ability Independent June 28, 2016 6:31pm Housework Ability Independent June 28, 2016 6:31pm Meal Preparation Ability Independent June 28, 2016 6:31pm Stair Climbing Ability Independent June 28, 2016 6:31pm Ability to complete ADL's impeded by No change June 28, 2016 6:40pm Cognitive/Perceptual Impairments Impaired vision June 28, 2016 6:31pm Allergies, Adverse Reactions, Alerts Allergen Type Severity Reaction Status Last Updated NKDA Allergy Unknown Active 06/28/16 Immunizations Query Response on File Recorded Date/Time Hx Influenza Vaccination Y NOV 2015 06/28/16 6:41pm Hx Pneumococcal Vaccination No 06/28/16 6:41pm Hx Influenza Vaccination Y NOV 2015 06/28/16 6:41pm Influenza Vaccine Hx 12/1106/30/16 12:00pm Vital Signs Acute Vital Signs Vital Response Date/Time Temperature (Fahrenheit) 97.8 deg F (96.8 - 99.1) 06/30/2016 11:13am Temperature (Calculated Celsius) 36.14520 degrees C (36.0 - 37.3) 06/30/2016 11:13am Pulse Rate (adult) 60 bpm (60 - 100) 06/30/2016 11:13am Respiratory Rate 16 breaths/min (10 - 20) 06/30/2016 11:13am O2 Sat by Pulse Oximetry 97 % (90 - 100) 06/30/2016 11:13am Oxygen Delivery Method Room Air 06/30/2016 7:51am Blood Pressure 102/55 mm Hg 06/30/2016 11:13am Blood Pressure Source Automatic Cuff 06/30/2016 11:13am Height (Feet) 6 feet 06/30/2016 12:44pm Height (Inches) 0.00 inches 06/30/2016 12:44pm Weight (Kilograms) 86.300 kg 06/30/2016 8:18am Body Mass Index (BMI) 25.8 06/28/2016 6:34pm Results Laboratory Results Test Name Result Units [...] RATIO 0-5.0 05/11/2016 4:34am 05/11/2016 5: 15am Neutrophils (%) (Auto) 56.0 % 33-66 05/18/2016 11:02am 05/18/2016 11: 15am Lymphocytes (%) (Auto) 32.1 % 23-45 05/18/2016 11:02am 05/18/2016 11: 15am Monocytes (%) (Auto) 9.0 % 0-9.0 05/18/2016 11:02am 05/18/2016 11:15am Eosinophils (%) (Auto) 2.1 % 0-4 [...] Absolute Basophils (auto) 0.0 T/MM3 0-0.2 05/18/2016 11:02am 2016 11:15am Absolute Immature Granulocyte (auto 0.01 T/MM3 0.00-0.03 05/18/2016 11: 02am 05/18/2016 11:15am Total Bilirubin 1.10 MG/DL 0.20-1.30 05/18/2016 11:0205/18/2016 11: 27am Alkaline Phosphatase 50 U/L 38-126 05/18/2016 11:0205/18/2016 11: 27am Total Protein 6.4 G/DL 6.3-8.2 05/18/2016 11:0205/18/2016 11:27am Albumin 3.5 G/DL 3.5-5.0 05/18/2016 11:0205/18/2016 11:27am Globulin 2.9 G/DL 2.4-3.6 05/18/2016 11:0205/18/2016 11:27am Albumin/Globulin Ratio 1.2 RATIO 1.1-2.2 05/18/2016 11:0205/18/2016 11:27am Aspartate Amino Transf (AST/SGOT) 39 U/L 17-59 05/18/2016 11:0205/18 11:27am Alanine Aminotransferase (ALT/SGPT) 71 U/L 21-72 05/18/2016 11:02 11:27am White Blood Count 12.1 T/MM3 H 4.5-11.0 06/30/2016 5:58am 06/30/2016 7: 56am Red Blood Count 4.69 M/MM3 4.50-5.90 06/30/2016 5:58am 06/30/2016 7: 56am Hemoglobin 15.8 GM/DL 13.5-17.5 06/30/2016 5:58am 06/30/2016 7:56am Hematocrit 46.0 % 41-53 06/30/2016 5:58am 06/30/2016 7:56am Mean Corpuscular Volume 98.1 UM3 80-100 06/30/2016 5:58am 06/30/2016 7: 56am Mean Corpuscular Hemoglobin 33.7 UUG 26-34 06/30/2016 5:58am 2016 7:56am Mean Corpuscular Hemoglobin Concent 34.3 GM/DL 31-37 06/30/2016 5:58am 06/30/2016 7:56am RDW Standard Deviation 45.1 FL 36.9-50.2 06/30/2016 5:58am 06/30/2016 7 :56am Platelet Count 224 T/MM3 130-400 06/30/2016 5:58am 06/30/2016 7:56am Mean Platelet Volume 11.0 UM3 9.4-12.4 06/30/2016 5:58am 06/30/2016 7: 56am Icterus Index < 2 0-7 06/30/2016 5:58am 06/30/2016 8:01am Chemistry Specimen Hemolysis < 15 0-25 06/30/2016 5:58am 06/30/2016 8 :01am 0-25: Specimen Exhibited No Hemolysis. Turbidity < 20 0-20 06/30/2016 5:58am 06/30/2016 8:01am Sodium Level 141 MEQ/L 134-144 06/30/2016 5:58am 06/30/2016 8:01am Potassium Level 3.7 MEQ/L 3.6-5 06/30/2016 5:58am 06/30/2016 8:01am Chloride Level 104 MEQ/L 98-107 06/30/2016 5:58am 06/30/2016 8:01am Carbon Dioxide Level 24 MEQ/L 22-30 06/30/2016 5:58am 06/30/2016 8: 01am Anion Gap 13 MEQ/L 5-15 06/30/2016 5:58am 06/30/2016 8:01am Blood Urea Nitrogen 18.0 MG/DL 9-20 06/30/2016 5:58am 06/30/2016 8: 01am Creatinine 1.1 MG/DL 0.8-1.5 06/30/2016 5:58am 06/30/2016 8:01am BUN/Creatinine Ratio 16 RATIO 6-26 06/30/2016 5:58am 06/30/2016 8:01am Glomerular Filtration Rate Calc 72 06/30/2016 5:58am 06/30/2016 8: 01am Glucose Level 101 MG/DL 75-110 06/30/2016 5:58am 06/30/2016 8:01am Calculated Osmolality 273 MOSM/KG 261-280 06/30/2016 5:58am 06/30/2016 8:01am Calcium Level 8.7 MG/DL 8.4-10.2 06/30/2016 5:58am 06/30/2016 8:01am Troponin I 0.033 ng/ml 0-0.12 06/29/2016 12:06pm 06/29/2016 1:02pm Troponin values with a difference of 55% increase from orginal troponin value represent a true biological DELTA value. (%increase Calc=Orginal Troponin value, divided by subsequent Troponin value, multiplied by 100) FG-Jrz-M-Type Natriuretic Peptide 2170 PG/ML H 0-175 06/30/2016 5:58am 06/30/2016 6:33am Rule in cut points: <50 years old=450; 50-75 years old=900; >75 years old=1800; When utilizing ProBNP rule-in cut points, adjustment for impaired renal function is typically not required. Magnesium Level 2.1 MG/DL 1.6-2.3 06/29/2016 7:07am 06/29/2016 7:26am Thyroid Stimulating Hormone (TSH) 1.60 MIU/L D 0.47-4.68 06/29/2016 7: 07am 06/29/2016 10:48am Name: SPENSER CROW Unit #: [id number] : 1970 Sex: M Admit Date: 06/29/16 Loc / Svc: MED Discharge Date: DIAGNOSTIC IMAGING REPORT Report #: [id number] [facility] EDMOND De Oliveira Indication: ITS.REASON: diuresis PROCEDURE: CHEST 1 VIEW: Encounter: Initial Comparison: May 18, 2016 Findings: The lungs are stable and clear. No pleural effusion or pneumothorax. Heart size and mediastinal contours are stable. Left cardiac pacemaker defibrillator. Pulmonary vascularity is normal. Impression: Stable chest without acute cardiopulmonary disease. . Procedures [...] Behav chng smoking 3-10 min Completed 05/10/16 [id number] ITEM OR SERVICE Completed 05/10/16 [id number] ITEM OR SERVICE Completed 05/10/16 [id number] ITEM OR SERVICE Completed 05/10/16 [id number] ITEM OR SERVICE Completed 05/10/16 [id number] ITEM OR SERVICE Completed 05/10/16 [id number] ITEM OR SERVICE Completed 05/10/16 [id number] ITEM OR SERVICE Completed 05/10/16 [id number] ITEM OR SERVICE Completed 05/10/16 [id number] ITEM OR SERVICE Completed 05/10/16 [id number] ITEM OR SERVICE Completed 05/10/16 [id number] ITEM OR SERVICE Completed 05/10/16 [id number] ITEM OR SERVICE Completed 05/10/16 [id number] ITEM OR SERVICE Completed 05/10/16 [id number]"HOSPITAL OBSERVATION SERVICE, PER HOUR" Completed 05/10/16 [id number]"HOSPITAL OBSERVATION SERVICE, PER HOUR" Completed 05/10/16 [id number]"HOSPITAL OBSERVATION SERVICE, PER HOUR" Completed 05/10/16 [id number]"HOSPITAL OBSERVATION SERVICE, PER HOUR" Completed 05/10/16 [id number]"INJECTION, ENOXAPARIN SODIUM, 10 MG" Completed 05/10/16 [id number]"INJECTION, ENOXAPARIN SODIUM, 10 MG" Completed 05/10/16 Routine venipuncture Completed 05/18/16 Routine venipuncture Completed 05/18/16 Chest x-ray 2vw frontal&latl Completed 05/18/16 Comprehen metabolic panel Completed 05/18/16 Assay of magnesium Completed 05/18/16 Assay of troponin quant Completed 05/18/16 Assay of troponin quant Completed 05/18/16 Complete cbc w/auto diff wbc Completed 05/18/16 Electrocardiogram tracing Completed 05/18/16 Ther/proph/diag inj sc/im Completed 05/18/16 Ther/proph/diag inj iv push Completed 05/18/16 [id number] ITEM OR SERVICE Completed 05/18/16 [id number]"HOSPITAL OBSERVATION SERVICE, PER HOUR" Completed 05/18/16 [id number]"HOSPITAL OBSERVATION SERVICE, PER HOUR" Completed 05/18/16 [id number] ADMISSION OF PATIENT FOR HOSPITAL OBSERVATION C Completed [id number]"INJECTION, ENOXAPARIN SODIUM, 10 MG" Completed 05/18/16 Encounters Encounter Location Arrival/Admit Date Discharge/Depart Date Attending Provider Discharged Inpatient [facility] 06/29/16 10:40am 06/30/16 1:55pm KATIE WEIR MD Discharged Inpatient (obs) [facility] 05/18/16 9:50am 05/18/16 6: 17pm KATIE WEIR MD Discharged Inpatient (obs) [facility] 05/10/16 11:25am 05/11/16 10:15am KATIE WEIR MD
--- NOTE | 2016-07-19 17:00 | NUR ---
ARRIVAL AMBULATORY TO ROOM 116. O2 RA. PATIENT DOES NOT APPEAR TO BE IN ANY DISTRESS AT THIS TIME. ANA CRISTINA DUMONT APRN NOTIFIED OF PATIENT'S ARRIVAL.
[2016-07-19 17:11] VITALS: BP 112/74; PULSE 66; RESP 18; TEMP 96; O2SAT 100; Ht 182.9 cm; Wt 85.4 kg
[2016-07-19] MEDS ORDERED: MORPHINE SULFATE 4 MG SYRINGE IV PRN (17:15)
[2016-07-19] MEDS ORDERED: PRN ORDERS MC (17:15)
[2016-07-19] MEDS ORDERED: ONDANSETRON 4mg/2ml INJECTION IV PRN (17:15)
[2016-07-19] MEDS ORDERED: POTA10TA10 PO (17:35)
[2016-07-19] MEDS ORDERED: FURO40TA5 PO (17:35)
[2016-07-19 18:01] LABS: BASOPHILS % (AUTO) 0.5 % (0-2); EOSINOPHILS # (AUTO) 0.2 T/MM3 (0-0.5); EOSINOPHILS % (AUTO) 2.2 % (0-4); HCT - HEMATOCRIT 44.3 % (41-53); HGB - HEMOGLOBIN 15.4 GM/DL (13.5-17.5); IMMATURE GRANULOCYTE # (AUTO) 0.01 T/MM3 (0.00-0.03); IMMATURE GRANULOCYTE % (AUTO) 0.1 % (0.0-0.5); LYMPHOCYTES # (AUTO) 2.7 T/MM3 (1-4.8); LYMPHOCYTES % (AUTO) 34.3 % (23-45); MEAN CORPUSCULAR HGB 33.8 UUG (26-34); MEAN CORPUSCULAR HGB CONC(MCHC 34.8 GM/DL (31-37); MEAN CORPUSCULAR VOLUME 97.4 UM3 (80-100); MEAN PLATELET VOLUME 10.1 UM3 (9.4-12.4); MONOCYTES # (AUTO) 0.6 T/MM3 (0-0.8); MONOCYTES % (AUTO) 8.3 % (0-9.0); NEUTROPHILS #(AUTO)-ABSOLUTE 4.2 T/MM3 (1.8-7.7); NEUTROPHILS % (AUTO) 54.6 % (33-66); RED BLOOD COUNT 4.55 M/MM3 (4.50-5.90); WBC - WHITE BLOOD COUNT 7.7 T/MM3 (4.5-11.0)
[2016-07-19 18:09] LABS: ANION GAP 13 MEQ/L (5-15); BUN/CREATININE RATIO 13 RATIO (6-26); CALCIUM 9.2 MG/DL (8.4-10.2); CHLORIDE 104 MEQ/L (98-107); CO2 - CARBON DIOXIDE 27 MEQ/L (22-30); GLOMERULAR FILTRATION RATE 80; GLUCOSE 86 MG/DL (75-110); MAGNESIUM 2.1 MG/DL (1.6-2.3); POTASSIUM 3.6 MEQ/L (3.6-5); SODIUM 144 MEQ/L (134-144)
[2016-07-19 19:53] VITALS: BP 121/69; PULSE 75; RESP 18; TEMP 96.7; O2SAT 100
[2016-07-19 20:00] VITALS: PULSE 79; RESP 16
--- NOTE | 2016-07-19 23:29 | HPPDOC ---
HPI - Adult Date DATE: 07/19/16 TIME: 23:28 General Date of Admission Date of Admission: Jul 19, 2016 at 16:50 Chief Complaint: Chest pain History of Present Illness This is a 45 year old patient known to Dr. De Jesus for Dilated Cardiomyopathy, EF 20%, with a BiV/ICD. 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 Today he went to the [facility] for labs ordered by Dr. De Jesus. He has an appt with Dr. De Jesus next week. He reported he had chest pain, fatigue, dizziness and some SOB and felt weird. Therefore he was scheduled to see a physician in [place] who is not his PCP. His BP 87/60. He states his potassium was low and one other lab value showed he was dehydrated. The lab from [facility] was not sent with him. But his labs on arrival here: CBC w diff, BMP, Mag, and Trop are all normal. ECG: BiV paced. The physician in [place] talked with Dr. De Jesus and he was transferred as a direct admit to [facility] for concerns of CHF exacerbation. But on arrival he is not in heart failure, in fact he looks euvolemic. He had an office visit with Dr. De Jesus 2 weeks ago. in [place] out reach clinic and he he reported he was dizzy and BP was low and Dr. De Jesus stopped his lasix for 3 days and reduced his lasix 40mg daily instead of BID and KCL 10 Meq daily. He states he felt better when he was off the lasix for the 3 days. On 07/11/2016 Jeniffer, when went to a family gathering and was standing around and developed chest pain and was dizzy, flushed and clammy, Today, on 07/19/2016, he awoke feeling weird. He was active running errands and developed chest pain which lasted 30 minutes and relieved after he sat down and rested. He has 2 kinds of chest pain. One chest pain is inside and is more painful when he is active, relieved with rest. The other is chest wall pain on his left chest area around the BiV/ICD and his left side. It is reproducible on palpation. He states he has not done anything physical to hurt himself. He keeps active going to [employer]. He has had fatigue since Nov 2015. He takes all his meds as prescribed. His weight has been constant 190# daily. He sleeps on a couple of pillows but not needed more. He does not feel fluid overloaded. sometimes in the middle of the night he awakens in the middle of the night with chest discomfort and SOB and once he gets up it goes away. He can see his heart beating sometimes. Hx: He was admitted in 05/10/2016 and 05/18/2016 and 06/28/2016 for similar symptoms. He had dull ache across his chest reproducible on palpation. and had chest congestion. He went to [facility] both times and found to have a slightly elevated trop. Repeat trop in [facility] were negative both times. He was Dx with costochondritis and DC on Indomethacin the first time which provided relief. We gave him Aleve the second time, but he does not remember he was instructed to take Aleve at home. His BNP 04/2016 was 3414 and 06/28/2016 was 5195 and 06/30/2016 was 2170 and 2016 was 1820. Today, 07/20/2016 is 3410. On 11/2015 his defibrillator did shock him. Hx Cardiac procedures: 12/09/2015 echo: EF 20%, global hypokinesia, LAE, LVE, mod MR, mild TR, PAP 37, mild PI. 02/18/2014 BiV/ICD - Medtronic implanted. 11/05/2013 heart cath: EF 10%, LVE, LVEDP 23, Coronaries normal. We admitted him for chest wall pain and concerns for Chronic SHF. Past Medical History Past Medical History Metabolic: hypertension (now hypotensive) Cardiac: CHF (CSHF, EF 20%, per echo 11/2015) Surgical History General: gallbladder Cardiac: cardiac cath (EF 10% normal coronaries 10/2015), other (BiV/ICD - Medtronic 01/2014) Current Medications Home Meds Active Scripts Sacubitril/Valsartan (Entresto 49 mg-51 mg Tablet) 1 Each Tablet, 1 EACH PO BID for 30 Days, #60 TAB 11 Refills Prov:ANA CRISTINA DUMONT APRN 06/30/16 Carvedilol (Coreg) 12.5 Mg Tablet, 12.5 MG PO BIDWM for 30 Days, #60 TAB 11 Refills Prov:ANA CRISTINA DUMONT APRN 06/30/16 Amiodarone HCl (Pacerone) 200 Mg Tablet, 200 MG PO DAILY for 30 Days, #30 TAB 11 Refills Prov:ANA CRISTINA DUMONT FLAP PRESSER 06/30/16 Reported Medications Potassium Chloride (Klor-Con 10) 10 Meq Tablet.er, 1 TAB PO DAILY 07/19/16 Furosemide (Furosemide) 40 Mg Tablet, 1 TAB PO DAILY, TAB 07/19/16 Fluticasone Propionate (Flonase Allergy Relief 50 mcg/actuation Nasal) 9.9 Ml [place].susp, 1 SPRAY INH BID ONE SPRAY EACH NOSTRIL BID 06/28/16 Atorvastatin Calcium (Atorvastatin Calcium) 40 Mg Tablet, 1 TAB PO HS, TAB 05/10/16 Pantoprazole Sodium (Pantoprazole Sodium) 40 Mg Tablet.dr, 40 MG PO ACB, TAB Take 1 tablet, by mouth, daily before breakfast. 05/10/16 Aspirin (Aspir 81) 81 Mg Tablet.dr, 1 TAB PO DAILY, TAB 02/20/14 Spironolactone (Spironolactone) 25 Mg Tablet, 25 MG PO DAILY, #30 02/20/14 Allergies: Coded Allergies: NKDA (Verified Allergy, Unknown, 07/19/16) Family History Family History Comments adopted. 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 ), DENIES: dysuria Musculoskeletal General: weakness Integumentary Skin: DENIES: rash, sores Nails: DENIES: cupping Neurological General: DENIES: headache, syncope Psychiatric Psychiatric: DENIES: anxiety, depression Endocrine DENIES: heat/cold intolerance Hematologic/Lymphatic DENIES: easy bruising Physical Exam General General Nourishment: well nourished, well developed General Body Habitus: well groomed Vital Signs Vital Signs Date Time Temp Pulse Resp B/P Pulse Ox O2 Delivery O2 Flow Rate FiO2 07/19/16 20:00 79 16 07/19/16 19:53 96.7 121/69 100 Room Air Height (Feet): 6 Height (Inches): 0.00 Telemetry Rhythm: Vpaced (BiV paced 100%) Eyes Brief: NOT FOUND: scleral icterus, trauma ENMT Brief: FOUND: hearing intact, mucosa moist, normal dentition Neck Brief: FOUND: midline, NOT FOUND: JVD, carotid bruits Respiratory Brief: FOUND: clear all rodriguez, equal bilaterally Cardiovascular (brief) Cardiac Brief: FOUND: other (pedal pulses palpable), regular rate, regular rhythm, NOT FOUND: murmur, pedal edema Capillary Refill: <2 sec Abdomen (brief) Abdominal Brief: FOUND: BS normo active x4, soft, NOT FOUND: tender Musculoskeletal (brief) Musculoskeletal Brief: FOUND: extremities move equally Integumentary (brief) Integumentary Brief: FOUND: dry, pink, warm Neurologic (brief) Neurological Brief: FOUND: motor, sensory, NOT FOUND: facial droop, ptosis Neurologic RN Documented GCS Eye Opening: Verbal: Motor: Total: Psychiatric (brief) FOUND: alert, attentive, normal affect, oriented Laboratory BNP : 3410 Laboratory Tests Test 07/19/16 17:28 07/19/16 22:51 White Blood Count 7.7T/MM3 Red Blood Count 4.55M/MM3 Hemoglobin 15.4GM/DL Hematocrit 44.3% Mean Corpuscular Volume 97.4UM3 Mean Corpuscular Hemoglobin 33.8UUG Mean Corpuscular Hemoglobin Concent 34.8GM/DL RDW Standard Deviation 43.0FL Platelet Count 285T/MM3 Mean Platelet Volume 10.1UM3 Immature Granulocyte % (Auto) 0.1% Neutrophils (%) (Auto) 54.6% Lymphocytes (%) (Auto) 34.3% Monocytes (%) (Auto) 8.3% Eosinophils (%) (Auto) 2.2% Basophils (%) (Auto) 0.5% Absolute Immature Granulocyte (auto 0.01T/MM3 Absolute Neutrophils (auto) 4.2T/MM3 Absolute Lymphocytes (auto) 2.7T/MM3 Absolute Monocytes (auto) 0.6T/MM3 Absolute Eosinophils (auto) 0.2T/MM3 Absolute Basophils (auto) 0.0T/MM3 Turbidity < 20 Sodium Level 144MEQ/L Potassium Level 3.6MEQ/L Chloride Level 104MEQ/L Carbon Dioxide Level 27MEQ/L Anion Gap 13MEQ/L Blood Urea Nitrogen 13.0MG/DL Creatinine 1.0MG/DL Glomerular Filtration Rate Calc 80 BUN/Creatinine Ratio 13RATIO Glucose Level 86MG/DL Calculated Osmolality 276MOSM/KG Calcium Level 9.2MG/DL Magnesium Level 2.1MG/DL Icterus Index < 2 Troponin I 0.042ng/ml Chemistry Specimen Hemolysis < 15 EKG ECG: BiV paced Assessment & Plan Problems: (1) Cardiomyopathy Onset Date: 02/20/2014 Status: Chronic Assessment & Plan: 11/2015 echo: EF 20%, dilated cardiomyopathy. He has a BiV/ ICD and it is BiV pacing. His BNP 04/2016 was 3414 and 06/28/2016 was 5195 and 2016 was 2170 and 07/01/2016 was 1820. Today, 07/20/2016 is 3410. Since his BNP is elevated today at 3410, will cont lasix 40mg daily. But he said stopping the lasix 2 weeks ago for 3 days did make him feel better. So will reduce Coreg 6.25m BID since BP is low. He was on this dosage of Coreg in 06.29.2016. He also thinks he has been having symptoms and feeling more fatigued since starting the Entresto in 04/2016. (He has had low EF since 2013, but has been coming to hospital 2 x in Apr and 2x in June for the same.). But will cont Entresto 49/ 51 for now. He is using samples of Entresto. He states he can not afford Entresto at $400.00. I will inform Queta GROVE at office to contact him about qualifying him for free. Wt is steady, no JVD. Absolutely no edema in legs. Monitor Wts.lytes, renal status. He understands HF. He does drink 3 or 4 pops a day and very little water. Discussed decreasing pop. (2) CHF (congestive heart failure) Status: Chronic Assessment & Plan: as above. (3) Chest wall pain, chronic Status: Chronic Assessment & Plan: Trop are neg x2, ECG: BiV paced. 2013 heart cath showed normal coronaries. C/O heart pain inside chest with activity at times and at rest. In addition c/o left chest wall pain reproducible on palpation. He is worried this is his heart. I explained that his heart cath 2 yrs ago was clean and unlikely he would develop disease in his coronaries to cause pain so soon, but he is very concerned it is his heart since the heart cath was 2 years ago. I will relay this to Dr. Valentin. Cont ASA. stop statin for 2 to 4 weeks. which may be causing his pain and fatigue and restart if it does not resolve. Start Aleve 220mg BID.. Inform him to take at home since Indomethacin worked last time. (4) Dizziness Status: Acute Assessment & Plan: and fatigue and feeling poorly, with hypotension. Decrease Coreg 6.25mg BID. Cont Entresto and lasix. Orthostatics. stop statin for muscle aches and fatigue. (5) Hypotension Status: Chronic Assessment & Plan: Orthostatics. RN held Coreg tonight. for SBP 90's. BP will be low with cardiomyopathy. REduced Coreg 6.25mgBID - this is the amount 3 weeks ago when he came to hospital. (6) Automatic implantable cardioverter-defibrillator in situ Status: Chronic (7) Hypokalemia Status: Resolved Assessment & Plan: Reportedly his K+ was low in [place]. the K+ at [facility] is 3.6 on the low side of normal. Will give an extra KCL 10 mEq tonight and recheck in am. DVT Prophylaxis: Lovenox Code Status Full Code Hospital Course Summary Disclaimer The hospital course summary below is not to be considered part of the above Progress Note. KATHARINA WAITE APRN Jul 19, 2016 23:29
[2016-07-19] MEDS ORDERED: POTASSIUM CHLORIDE 10 MEQ TABLET PO ONE (23:30)
[2016-07-20] MEDS ORDERED: NITROGLYCERIN 0.4 MG SUBLINGUAL TABLET SL PRN
[2016-07-20 00:05] VITALS: BP 94/58; PULSE 69; RESP 18; TEMP 97; O2SAT 96
--- NOTE | 2016-07-20 00:20 | NUR ---
STATUS PATIENT ALERT AND ORIENTEDX3. BP 94/58. PULSE 69 AT MIDNIGHT. PATIENT C/O HEADACHE AND CHEST PAIN.PATIENT RATED 4/10. OK TO HOLD COREG .ALEVE 220MG WAS ADMINISTRATED FOR CHEST PAIN. PATIENT REFUSED NITROSTAT DUE TO CAUSE HEADACHE. CONTINUE TO MONITOR.
[2016-07-20] MEDS: NAPROXEN 220 MG TABLET PO SCH ×2 (00:22→08:23)
[2016-07-20] MEDS: CARVEDILOL 6.25 MG PO SCH ×2 (00:23→08:39)
[2016-07-20] MEDS: ENOXAPARIN 40 MG/0.4 ML INJECTION SQ SCH ×2 (00:52→08:39)
[2016-07-20] MEDS ORDERED: ONDANSETRON 4mg/2ml INJECTION IM PRN (01:30)
[2016-07-20] MEDS ORDERED: ACETAMINOPHEN 325 MG TABLET PO PRN (01:30)
[2016-07-20 01:49] VITALS: BP_SYST 105; BP_SYST 90; BP_DIAS 68; BP_DIAS 71; PULSE 56; PULSE 81
[2016-07-20 01:50] VITALS: BP 95/61; PULSE 65
--- NOTE | 2016-07-20 02:04 | NUR ---
Chart Check 24 hour chart check completed
[2016-07-20 04:00] VITALS: BP 94/62; PULSE 70; RESP 18; TEMP 95.2; O2SAT 97
[2016-07-20 05:22] LABS: ANION GAP 12 MEQ/L (5-15); BUN/CREATININE RATIO 16 RATIO (6-26); CALCIUM 9.4 MG/DL (8.4-10.2); CHLORIDE 103 MEQ/L (98-107); CO2 - CARBON DIOXIDE 27 MEQ/L (22-30); CREATININE 1.1 MG/DL (0.8-1.5); GLOMERULAR FILTRATION RATE 72; GLUCOSE 102 MG/DL (75-110); MAGNESIUM 2.2 MG/DL (1.6-2.3); POTASSIUM 3.6 MEQ/L (3.6-5); SODIUM 142 MEQ/L (134-144)
[2016-07-20] MEDS ORDERED: --POM--PANTOPRAZOLE 40 MG TABLET PO SCH (06:30)
--- NOTE | 2016-07-20 06:50 | NUR ---
STATUS PATIENT IS RESTING IN BED QUIETLY DURING NIGHT. BP 94/62. PULSE 70. ON ROOM AIR.NO C/O CHEST PAIN,SOA,OR N/V AT THIS TIME. PATIENT AMBULATED WITH STANDBY ASSIST TO BATHROOM.PATIENT USED URINAL TO VOID AT BATHROOM. CALL LIGHT WITHIN REACH. BED IN LOW POSITION. CONTINUE TO MONITOR.
[2016-07-20 07:39] VITALS: BP 99/55; PULSE 61; RESP 18; TEMP 96.8; O2SAT 97
[2016-07-20] MEDS ORDERED: SPIRONOLACTONE 25 MG PO SCH (08:00)
[2016-07-20] MEDS ORDERED: FUROSEMIDE 20 MG TABLET PO SCH (09:00)
[2016-07-20] MEDS ORDERED: FLUTICASONE 50 MCG EA NOSTRIL SCH (09:00)
[2016-07-20] MEDS ORDERED: --POM--POTASSIUM CHLORIDE 10 MEQ TABLET PO SCH (09:00)
[2016-07-20] MEDS ORDERED: --POM--AMIODARONE 200 MG TABLET PO SCH (09:00)
[2016-07-20] MEDS ORDERED: --POM--ASPIRIN *EC* 81mg TABLET PO SCH (09:00)
[2016-07-20] MEDS ORDERED: VALSARTAN PO SCH (09:00)
[2016-07-20] MEDS ORDERED: --POM--FUROSEMIDE 40 MG TABLET PO SCH (09:00)
[2016-07-20] MEDS ORDERED: SACUBITRIL PO SCH (09:00)
--- NOTE | 2016-07-20 09:39 | NUR ---
CM CM IN TO VISIT PATIENT, HE IS A&O. NO FAMILY IS PRESENT. PATIENT PLANS TO DISCHARGE HOME, DENIES DISCHARGE NEEDS. CM CONTACT INFORMATION PROVIDED. Addendum: 07/20/16 at 0940 by JAYLEN HERNANDEZ RN Amended: Links added.
--- NOTE | 2016-07-20 15:13 | GENHPPDOC ---
[facility] 07/20/16 Start Time: 12:00 Stop Time: 12:40 >50% of this visit spent in counseling/coordination care. Chief Complaint: Anxiety History of Present Illness Patient is a 45-year-old , disabled male with a significant cardiac history who was admitted due to recurrent chest pain. He is currently awaiting a cardiac transplant. Psychiatry was consulted for recommendations in regards to anxiety as this is believed to be part of patient's recurrent ED visits. Patient also recently stopped smoking ~3 weeks ago in preparation for his transplant. Patient is pleasant and cooperative throughout interview, though he appears anxious. He does admit to worrying frequently about his health and what may happen, though the transplant would be beneficial. This wakes him up at night at times and has the ability to make his chest hurt from the inside, as well as lead to mild SOA. Patient does feel this has gotten worse in the past 3 weeks since stopping smoking. He states he has tried Wellbutrin in the past and "it calmed him down." He denies trying any other antidepressants previously. He does feel that his mood is "kind of down" and his energy is low sometimes, though he denies anhedonia, SI or hopelessness. Patient is agreeable to a repeat trial of Wellbutrin to target anxiety, depression as well as help sustain his smoking cessation. Patient denies any history of seizures or head injuries. Past psychiatric history: Treated for ADHD with Ritalin as a child through [place]. Denies any history of suicide attempts, psych hospitalizations, manic behavior or psychosis. Depression: sad, decreased energy, sleep disturbance Anxiety: worries, sleep changes, chest pain, shortness of breath Past Medical History Past Medical History Patient's Medical History: (1) Premature ventricular beats (2) Essential (primary) hypertension (3) Automatic implantable cardioverter-defibrillator in situ (4) Cardiomyopathy Onset Date: 02/20/2014 Permanent Comment: caused by virus Last Edited By: Treva Whitman on Dec 10, 2015 12:14 (5) Low TSH level (6) CHF (congestive heart failure) (7) Hypotension Surgical History Patient's Surgical History: cholecystectomy cardiac catheterization ICD Current Medications Home Meds Active Scripts Sacubitril/Valsartan (Entresto 49 mg-51 mg Tablet) 1 Each Tablet, 1 EACH PO BID for 30 Days, #60 TAB 11 Refills Prov:ANA CRISTINA DUMONT HEAD CHARGER 06/30/16 Carvedilol (Coreg) 12.5 Mg Tablet, 12.5 MG PO BIDWM for 30 Days, #60 TAB 11 Refills Prov:ANA CRISTINA DUMONT HEAD CHARGER 06/30/16 Amiodarone HCl (Pacerone) 200 Mg Tablet, 200 MG PO DAILY for 30 Days, #30 TAB 11 Refills Prov:ANA CRISTINA DUMONT HEAD CHARGER 06/30/16 Reported Medications Potassium Chloride (Klor-Con 10) 10 Meq Tablet.er, 1 TAB PO DAILY 07/19/16 Furosemide (Furosemide) 40 Mg Tablet, 1 TAB PO DAILY, TAB 07/19/16 Fluticasone Propionate (Flonase Allergy Relief 50 mcg/actuation Nasal) 9.9 Ml [place].susp, 1 SPRAY INH BID ONE SPRAY EACH NOSTRIL BID 06/28/16 Atorvastatin Calcium (Atorvastatin Calcium) 40 Mg Tablet, 1 TAB PO HS, TAB 05/10/16 Pantoprazole Sodium (Pantoprazole Sodium) 40 Mg Tablet.dr, 40 MG PO ACB, TAB Take 1 tablet, by mouth, daily before breakfast. 05/10/16 Aspirin (Aspir 81) 81 Mg Tablet.dr, 1 TAB PO DAILY, TAB 02/20/14 Spironolactone (Spironolactone) 25 Mg Tablet, 25 MG PO DAILY, #30 02/20/14 Allergies: Coded Allergies: NKDA (Verified Allergy, Unknown, 07/19/16) Family History Family History: Unknown - patient was adopted Vaccines 12/11 n No Social History Smoking Status: Former smoker (quit 06/29/2016) Does patient use chewing tobac: No # of Packs/Tins per Day: 0.5 # of Years: 27 Substance Use Type: does not use Alcohol Intake: occasionally Marital Status: In a relationship Sexuality: female partner Household Members: none Current Occupational Status: disabled 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 Grade (if student): Graduated HS Advance Directives: No DPOA for Healthcare Only Review of Systems Constitutional: REPORTS: fatigue, insomnia, DENIES: chills, fever Eyes General: DENIES: burning, dryness, erythema, exudate, foreign body sensation, itching, other, pain, photophobia, see HPI, subconjunctival bleed, watering Vision: DENIES: acuity, aura, blurring, bright flashes, change in color, double vision, glare, loss of visual rodriguez, night blindness, other, see HPI, tunnel vision, vision changes Cardiovascular chest pain, other (per HPI) Pulmonary Respiratory: dyspnea (intermittent, per HPI), DENIES: cough GI Upper Abdomen: DENIES: abdominal swelling, dysphagia, food intolerances, heartburn/indigestion, hematemesis, nausea, other, pain, see HPI, vomiting General: DENIES: burning, cloudy urine, discharge, dysuria, frequency, hematuria, hx of STD's, incontinence, nocturia, oliguria, other, pain, polyuria , renal stones, see HPI, urgency Musculoskeletal General: DENIES: atrophy of muscles, cramps, edema, joint pain, joint swelling , other, pain, see HPI, spasm, tenderness, weakness Integumentary Skin: DENIES: color change, infections, itching, lesion, mole, other, rash, see HPI, sores, tumor, ulcers Neurological General: DENIES: aphasia, ataxia, blackouts, blindness, change in strength, dysarthria, dysesthesia, fainting, headache, memory disturbances, numbness, other, paralysis/paresis, poor coordination, see HPI, seizures, syncope, tics, tingling, tremor, vertigo, weakness Psychiatric Psychiatric: anxiety, depression, nervousness, DENIES: hallucinations, memory impairment, suicidal ideation/attempt Endocrine DENIES: heat/cold intolerance, other, polydipsia, polyphagia, see HPI Hematologic/Lymphatic DENIES: anemia, bleeding gums, easy bruising, frequent nosebleeds, lymphadenopathy, other, see HPI Allergic/Immunological DENIES: allergic reactions, frequent infections, hives, other, see HPI, sneezing All Other Systems All Other Systems: Reviewed (remainder of 10-point ROS Neg.) Generations Exam Vitals Vital Signs Date Time Temp Pulse Resp B/P Pulse Ox O2 Delivery O2 Flow Rate FiO2 07/20/16 07:39 96.8 61 18 99/55 97 Room Air Physical examination performed by the hospitalist. Height (Feet): 6 Height (Inches): 0.00 Mental Status Exam Muscle Strength/Tone: Normal Dressing: Casual Grooming: Good Attitude: Cooperative Motor Activity: Normal Eye Contact: Good Speech: Normal Volume: Normal Rhythm: Appropriate Rhythm Sensory: Alert Orientation: Oriented X4 Mood: Anxious Affect: Congruent Rate of Thoughts: Appropriate Rate Thought Organization: Organized Associations: Intact Abstract Reasoning: Intact, able to abstract Computation: Intact Thought Content: Somatic Concerns Perception/Psychotic: Perception Normal Attention Span/Concentration: Normal Language: Naming Intact Fund of Knowledge: Appropriate Memory: Grossly Intact Suicidal Ideation: Denies Homicidal Ideation: Denies Insight: Good Judgment: Good Impulse Control: Good Laboratory Tests Test 07/19/16 17:28 07/19/16 22:51 07/20/16 04:57 White Blood Count 7.7T/MM3 Red Blood Count 4.55M/MM3 Hemoglobin 15.4GM/DL Hematocrit 44.3% Mean Corpuscular Volume 97.4UM3 Mean Corpuscular Hemoglobin 33.8UUG Mean Corpuscular Hemoglobin Concent 34.8GM/DL RDW Standard Deviation 43.0FL Platelet Count 285T/MM3 Mean Platelet Volume 10.1UM3 Immature Granulocyte % (Auto) 0.1% Neutrophils (%) (Auto) 54.6% Lymphocytes (%) (Auto) 34.3% Monocytes (%) (Auto) 8.3% Eosinophils (%) (Auto) 2.2% Basophils (%) (Auto) 0.5% Absolute Immature Granulocyte (auto 0.01T/MM3 Absolute Neutrophils (auto) 4.2T/MM3 Absolute Lymphocytes (auto) 2.7T/MM3 Absolute Monocytes (auto) 0.6T/MM3 Absolute Eosinophils (auto) 0.2T/MM3 Absolute Basophils (auto) 0.0T/MM3 Turbidity < 20 < 20 Sodium Level 144MEQ/L 142MEQ/L Potassium Level 3.6MEQ/L 3.6MEQ/L Chloride Level 104MEQ/L 103MEQ/L Carbon Dioxide Level 27MEQ/L 27MEQ/L Anion Gap 13MEQ/L 12MEQ/L Blood Urea Nitrogen 13.0MG/DL 18.0MG/DL Creatinine 1.0MG/DL 1.1MG/DL Glomerular Filtration Rate Calc 80 72 BUN/Creatinine Ratio 13RATIO 16RATIO Glucose Level 86MG/DL 102MG/DL Calculated Osmolality 276MOSM/KG 275MOSM/KG Calcium Level 9.2MG/DL 9.4MG/DL Magnesium Level 2.1MG/DL 2.2MG/DL Icterus Index < 2 < 2 Troponin I 0.042ng/ml 0.041ng/ml 0.050ng/ml Chemistry Specimen Hemolysis < 15 < 15 < 15 [id number] Natriuretic Peptide 3410PG/ML Assessment and Plan (1) Generalized anxiety disorder (2) Depressive disorder (3) Tobacco abuse Assessment: currently in early remission (4) Essential (primary) hypertension (5) Cardiomyopathy (6) Automatic implantable cardioverter-defibrillator in situ (7) Low TSH level (8) CHF (congestive heart failure) (9) Hypotension Patient in agreement with trial of Wellbutrin XL 150mg PO daily to target anxiety, depressive symptoms as well as help with sustained smoking cessation. Patient has tried this medication in the past and it reportedly "calmed him down ," without adverse effect. This medication should not cause further hypotension as it increases norepinephrine. Though commonly used to treat depression and anxiety, in some patients NE may cause increased anxiety - discussed this with the patient and asked him to please discuss with physician if he feels more anxious. Patient denies any hx of seizures or head injuries as this medication does decrease seizure threshold. Offered patient outpatient counseling but he does not feel it's necessary at this time. Recommend continued f/u with outpatient providers in case dose increase is necessary in the future. HAROLDO REYES MD Jul 20, 2016 09:46
[2016-07-20] MEDS ORDERED: BUPR-51 PO (16:27)
--- NOTE | 2016-07-20 16:47 | DSPDOC ---
ANA CRISTINA DUMONT CONTINUOUS MINER OPERATOR 07/20/16 1646: General Date Date DATE: 07/20/16 TIME: 16:41 Attending Physician Sonido Weir MD Admitting Physician Sonido Weir MD Consulting Physician Barbra Arndt MD Admitting Diagnosis chest pain Discharge Diagnosis chronic chest pain Laboratory Laboratory Tests Test 07/19/16 17:28 07/19/16 22:51 07/20/16 04:57 White Blood Count 7.7T/MM3 Red Blood Count 4.55M/MM3 Hemoglobin 15.4GM/DL Hematocrit 44.3% Mean Corpuscular Volume 97.4UM3 Mean Corpuscular Hemoglobin 33.8UUG Mean Corpuscular Hemoglobin Concent 34.8GM/DL RDW Standard Deviation 43.0FL Platelet Count 285T/MM3 Mean Platelet Volume 10.1UM3 Immature Granulocyte % (Auto) 0.1% Neutrophils (%) (Auto) 54.6% Lymphocytes (%) (Auto) 34.3% Monocytes (%) (Auto) 8.3% Eosinophils (%) (Auto) 2.2% Basophils (%) (Auto) 0.5% Absolute Immature Granulocyte (auto 0.01T/MM3 Absolute Neutrophils (auto) 4.2T/MM3 Absolute Lymphocytes (auto) 2.7T/MM3 Absolute Monocytes (auto) 0.6T/MM3 Absolute Eosinophils (auto) 0.2T/MM3 Absolute Basophils (auto) 0.0T/MM3 Turbidity < 20 < 20 Sodium Level 144MEQ/L 142MEQ/L Potassium Level 3.6MEQ/L 3.6MEQ/L Chloride Level 104MEQ/L 103MEQ/L Carbon Dioxide Level 27MEQ/L 27MEQ/L Anion Gap 13MEQ/L 12MEQ/L Blood Urea Nitrogen 13.0MG/DL 18.0MG/DL Creatinine 1.0MG/DL 1.1MG/DL Glomerular Filtration Rate Calc 80 72 BUN/Creatinine Ratio 13RATIO 16RATIO Glucose Level 86MG/DL 102MG/DL Calculated Osmolality 276MOSM/KG 275MOSM/KG Calcium Level 9.2MG/DL 9.4MG/DL Magnesium Level 2.1MG/DL 2.2MG/DL Icterus Index < 2 < 2 Troponin I 0.042ng/ml 0.041ng/ml 0.050ng/ml Chemistry Specimen Hemolysis < 15 < 15 < 15 WO-Bli-E-Type Natriuretic Peptide 3410PG/ML Laboratory Tests Test 07/19/16 17:28 07/19/16 22:51 07/20/16 04:57 White Blood Count 7.7T/MM3 (4.5-11.0) Red Blood Count 4.55M/MM3 (4.50-5.90) Hemoglobin 15.4GM/DL (13.5-17.5) Hematocrit 44.3% (41-53) Mean Corpuscular Volume 97.4UM3 (80-100) Mean Corpuscular Hemoglobin 33.8UUG (26-34) Mean Corpuscular Hemoglobin Concent 34.8GM/DL (31-37) RDW Standard Deviation 43.0FL (36.9-50.2) Platelet Count 285T/MM3 (130-400) Mean Platelet Volume 10.1UM3 (9.4-12.4) Immature Granulocyte % (Auto) 0.1% (0.0-0.5) Neutrophils (%) (Auto) 54.6% (33-66) Lymphocytes (%) (Auto) 34.3% (23-45) Monocytes (%) (Auto) 8.3% (0-9.0) Eosinophils (%) (Auto) 2.2% (0-4) Basophils (%) (Auto) 0.5% (0-2) Absolute Immature Granulocyte (auto 0.01T/MM3 (0.00-0.03) Absolute Neutrophils (auto) 4.2T/MM3 (1.8-7.7) Absolute Lymphocytes (auto) 2.7T/MM3 (1-4.8) Absolute Monocytes (auto) 0.6T/MM3 (0-0.8) Absolute Eosinophils (auto) 0.2T/MM3 (0-0.5) Absolute Basophils (auto) 0.0T/MM3 (0-0.2) Turbidity < 20 (0-20) < 20 (0-20) Sodium Level 144MEQ/L (134-144) 142MEQ/L (134-144) Potassium Level 3.6MEQ/L (3.6-5) 3.6MEQ/L (3.6-5) Chloride Level 104MEQ/L (98-107) 103MEQ/L (98-107) Carbon Dioxide Level 27MEQ/L (22-30) 27MEQ/L (22-30) Anion Gap 13MEQ/L (5-15) 12MEQ/L (5-15) Blood Urea Nitrogen 13.0MG/DL (9-20) 18.0MG/DL (9-20) Creatinine 1.0MG/DL (0.8-1.5) 1.1MG/DL (0.8-1.5) Glomerular Filtration Rate Calc 80 72 BUN/Creatinine Ratio 13RATIO (6-26) 16RATIO (6-26) Glucose Level 86MG/DL (75-110) 102MG/DL (75-110) Calculated Osmolality 276MOSM/KG (261-280) 275MOSM/KG (261-280) Calcium Level 9.2MG/DL (8.4-10.2) 9.4MG/DL (8.4-10.2) Magnesium Level 2.1MG/DL (1.6-2.3) 2.2MG/DL (1.6-2.3) Icterus Index < 2 (0-7) < 2 (0-7) Troponin I 0.042ng/ml (0-0.12) 0.041ng/ml (0-0.12) 0.050ng/ml (0-0.12) Chemistry Specimen Hemolysis < 15 (0-25) < 15 (0-25) < 15 (0-25) QN-Mti-B-Type Natriuretic Peptide 3410PG/ML (0-175) History of Present Illness This is a 45 year old patient known to Dr. Weir for Dilated Cardiomyopathy, EF 20%, with a BiV/ICD. 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 Today he went to the [facility] for labs ordered by Dr. Weir. He has an appt with Dr. Weir next week. He reported he had chest pain, fatigue, dizziness and some SOB and felt weird. Therefore he was scheduled to see a physician in [place] who is not his PCP. His BP 87/60. He states his potassium was low and one other lab value showed he was dehydrated. The lab from [facility] was not sent with him. But his labs on arrival here: CBC w diff, BMP, Mag, and Trop are all normal. ECG: BiV paced. The physician in [place] talked with Dr. Weir and he was transferred as a direct admit to [facility] for concerns of CHF exacerbation. But on arrival he is not in heart failure, in fact he looks euvolemic. He had an office visit with Dr. Weir 2 weeks ago. in [place] out reach clinic and he he reported he was dizzy and BP was low and Dr. Weir stopped his lasix for 3 days and reduced his lasix 40mg daily instead of BID and KCL 10 Meq daily. He states he felt better when he was off the lasix for the 3 days. On 07/11/2016 Jeniffer, when went to a family gathering and was standing around and developed chest pain and was dizzy, flushed and clammy, Today, on 07/19/2016, he awoke feeling weird. He was active running errands and developed chest pain which lasted 30 minutes and relieved after he sat down and rested. He has 2 kinds of chest pain. One chest pain is inside and is more painful when he is active, relieved with rest. The other is chest wall pain on his left chest area around the BiV/ICD and his left side. It is reproducible on palpation. He states he has not done anything physical to hurt himself. He keeps active going to [employer]. He has had fatigue since Nov 2015. He takes all his meds as prescribed. His weight has been constant 190# daily. He sleeps on a couple of pillows but not needed more. He does not feel fluid overloaded. sometimes in the middle of the night he awakens in the middle of the night with chest discomfort and SOB and once he gets up it goes away. He can see his heart beating sometimes. Hx: He was admitted in 05/10/2016 and 05/18/2016 and 06/28/2016 for similar symptoms. He had dull ache across his chest reproducible on palpation. and had chest congestion. He went to [facility] both times and found to have a slightly elevated trop. Repeat trop in [facility] were negative both times. He was Dx with costochondritis and DC on Indomethacin the first time which provided relief. We gave him Aleve the second time, but he does not remember he was instructed to take Aleve at home. His BNP 04/2016 was 3414 and 06/28/2016 was 5195 and 06/30/2016 was 2170 and 2016 was 1820. Today, 07/20/2016 is 3410. On 11/2015 his defibrillator did shock him. Hx Cardiac procedures: 12/09/2015 echo: EF 20%, global hypokinesia, LAE, LVE, mod MR, mild TR, PAP 37, mild PI. 02/18/2014 BiV/ICD - [employer] implanted. 11/05/2013 heart cath: EF 10%, LVE, LVEDP 23, Coronaries normal. We admitted him for chest wall pain and concerns for Chronic SHF. Objective Vital Signs Vital signs Vital Signs 07/20/16 07:39 Temp 96.8 Pulse 61 Resp 18 B/P 99/55 Pulse Ox 97 O2 Delivery Room Air Telemetry Rhythm: Vpaced (BiV paced 100%) Height (Feet): 6 Height (Inches): 0.00 Weight (Kilograms): 85.400 General Alert, Orientated x 3, Cooperative ENMT (Brief) mucosa moist Neck (Brief) NOT FOUND: JVD, carotid bruits Respiratory (Brief) clear all rodriguez, equal bilaterally, NOT FOUND: rales, wheezes Cardiovascular (Brief) regular rate, regular rhythm, NOT FOUND: click, gallop, murmur, pedal edema, rub Abdomen (Brief) BS normo active x4, soft Integumentary (Brief) dry, pink, warm Psychiatric (Brief) alert, oriented Laboratory Laboratory Laboratory Tests 07/19/16 17:28 07/20/16 04:57 Laboratory Tests 07/19/16 17:28 EKG V paced Medications Current Medications Morphine Sulfate (Morphine) prn Q1H PRN IV PAIN; Start 07/19/16 at 17:15 Miscellaneous Medication (May use PRN orders) 1 PRN PRN MC ; Start 07/19/16 at 17:15 Amiodarone HCl (Pacerone) 200 mg DAILY PO Last administered on 07/20/16 08:23 ; Start 07/20/16 at 09:00 Aspirin (Ecotrin) 81 mg DAILY PO Last administered on 07/20/16 08:21; Start at 09:00 Atorvastatin Calcium (LIPITOR 40 mg) 40 mg HS PO ; Start 07/20/16 at 22:00; Stop 07/20/16 at 22:00; Status DC Fluticasone Propionate (Flonase) 1 spray BID EA NOSTRIL Last administered on 08:23; Start 07/20/16 at 09:00 Pantoprazole Sodium (Protonix) 40 mg ACB PO Last administered on 07/20/16 06: 06; Start 07/20/16 at 06:30 Sacubitril/ Valsartan (ENTRESTO 49mg/ 51mg) 1 each BID PO Last administered on 07/20/16 08:22; Start 07/20/16 at 09:00 Spironolactone (Aldactone) 25 mg WB PO ; Start 07/20/16 at 08:00 Carvedilol (Coreg) 6.25 mg BIDWM PO Last administered on 07/20/16 08:39; Start 07/19/16 at 23:30 Potassium Chloride (Kdur) 10 meq O ONCE PO Last administered on 07/20/16 00: 51; Start 07/19/16 at 23:30; Stop 07/20/16 at 06:54; Status DC Naproxen Sodium (ALEVE 220 mg) 220 mg BIDWM PO Last administered on 07/20/16 08:23; Start 07/20/16 at 00:00 Nitroglycerin (Nitrostat) 0.4 mg Q5MIN PRN SL CHEST PAIN; Start 07/20/16 at 00: 00 Enoxaparin Sodium (Lovenox) 40 mg DAILY SQ Last administered on 07/20/16 08:39 ; Start 07/20/16 at 00:30 Furosemide (Lasix) 40 mg DAILY PO ; Start 07/20/16 at 09:00 Acetaminophen (Tylenol Regular Strength) 650 mg Q5H PRN PO DISCOMFORT; Start at 01:30 Ondansetron HCl (Zofran) 4 mg Q6H PRN IM NAUSEA &/OR VOMITING; Start 07/20/16 at 01:30 Bupropion HCl (Wellbutrin Xl) 150 mg DAILY PO ; Start 07/21/16 at 09:00 Hospital Course Florencio was admitted for concerns of chronic systolic heart failure with cardiomyopathy. Serial troponin levels were negative and EKG is paced. Consulted psych for evaluation of patient's anxiety/ depression and was started on Bupropion 150mg daily. Problems: (1) Cardiomyopathy Onset Date: 02/20/2014 Status: Chronic (2) CHF (congestive heart failure) Status: Chronic (3) Chest wall pain, chronic Status: Chronic (4) Dizziness Status: Acute (5) Hypotension Status: Chronic (6) Automatic implantable cardioverter-defibrillator in situ Status: Chronic (7) Hypokalemia Status: Resolved Code Status Full Code Home Meds Active Scripts Bupropion HCl (Bupropion Xl) 150 Mg Tab.er.24h, 150 MG PO DAILY for 30 Days, # 30 TAB 1 Refill Prov:ANA CRISTINA DUMONT CONTINUOUS MINER OPERATOR 07/20/16 Sacubitril/Valsartan (Entresto 49 mg-51 mg Tablet) 1 Each Tablet, 1 EACH PO BID for 30 Days, #60 TAB 11 Refills Prov:ANA CRISTINA DUMONT CONTINUOUS MINER OPERATOR 06/30/16 Carvedilol (Coreg) 12.5 Mg Tablet, 12.5 MG PO BIDWM for 30 Days, #60 TAB 11 Refills Prov:ANA CRISTINA DUMONT CONTINUOUS MINER OPERATOR 06/30/16 Amiodarone HCl (Pacerone) 200 Mg Tablet, 200 MG PO DAILY for 30 Days, #30 TAB 11 Refills Prov:ANA CRISTINA DUMONT CONTINUOUS MINER OPERATOR 06/30/16 Reported Medications Potassium Chloride (Klor-Con 10) 10 Meq Tablet.er, 1 TAB PO DAILY 07/19/16 Furosemide (Furosemide) 40 Mg Tablet, 1 TAB PO DAILY, TAB 07/19/16 Fluticasone Propionate (Flonase Allergy Relief 50 mcg/actuation Nasal) 9.9 Ml [place].susp, 1 SPRAY INH BID ONE SPRAY EACH NOSTRIL BID 06/28/16 Atorvastatin Calcium (Atorvastatin Calcium) 40 Mg Tablet, 1 TAB PO HS, TAB 05/10/16 Pantoprazole Sodium (Pantoprazole Sodium) 40 Mg Tablet.dr, 40 MG PO ACB, TAB Take 1 tablet, by mouth, daily before breakfast. 05/10/16 Aspirin (Aspir 81) 81 Mg Tablet.dr, 1 TAB PO DAILY, TAB 02/20/14 Spironolactone (Spironolactone) 25 Mg Tablet, 25 MG PO DAILY, #30 02/20/14 Discharge Disposition Discharged to home in god and stable condition in the care of himself with RX for Bupropion transmitted to [facility] SONIDO WEIR MD 07/22/16 1728: Hospital Course Home Meds Active Scripts Bupropion HCl (Bupropion Xl) 150 Mg Tab.er.24h, 150 MG PO DAILY for 30 Days, # 30 TAB 1 Refill Prov:ANA CRISTINA DUMONT APRN 07/20/16 Sacubitril/Valsartan (Entresto 49 mg-51 mg Tablet) 1 Each Tablet, 1 EACH PO BID for 30 Days, #60 TAB 11 Refills Prov:ANA CRISTINA DUMONT APRN 06/30/16 Carvedilol (Coreg) 12.5 Mg Tablet, 12.5 MG PO BIDWM for 30 Days, #60 TAB 11 Refills Prov:ANA CRISTINA DUMONT APRN 06/30/16 Amiodarone HCl (Pacerone) 200 Mg Tablet, 200 MG PO DAILY for 30 Days, #30 TAB 11 Refills Prov:ANA CRISTINA DUMONT APRN 06/30/16 Reported Medications Potassium Chloride (Klor-Con 10) 10 Meq Tablet.er, 1 TAB PO DAILY 07/19/16 Furosemide (Furosemide) 40 Mg Tablet, 1 TAB PO DAILY, TAB 07/19/16 Fluticasone Propionate (Flonase Allergy Relief 50 mcg/actuation Nasal) 9.9 Ml [place].susp, 1 SPRAY INH BID ONE SPRAY EACH NOSTRIL BID 06/28/16 Atorvastatin Calcium (Atorvastatin Calcium) 40 Mg Tablet, 1 TAB PO HS, TAB 05/10/16 Pantoprazole Sodium (Pantoprazole Sodium) 40 Mg Tablet.dr, 40 MG PO ACB, TAB Take 1 tablet, by mouth, daily before breakfast. 05/10/16 Aspirin (Aspir 81) 81 Mg Tablet.dr, 1 TAB PO DAILY, TAB 02/20/14 Spironolactone (Spironolactone) 25 Mg Tablet, 25 MG PO DAILY, #30 02/20/14 Discharge Disposition After examining the patient I agree with the above assessment. I am involved in the formulation of the patient's plan of care. ANA CRISTINA DUMONT APRN Jul 20, 2016 16:46 SONIDO WEIR MD Jul 22, 2016 17:28
--- NOTE | 2016-07-20 17:40 | NUR ---
DISMISSAL PATIENT DISMISSED TO HOME FOR SELF-CARE TO THE MAIN [facility]OS[facility] ENTRANCE. PT AMBULATED SELF TO THE EXIT. PATIENT'S SON WAS THE CHRONOGRAPH OPERATOR HOME. HOME MEDICATIONS SENT WITH PATIENT. IV CATHETER REMOVED PRIOR TO D/C. IV CATHETER TIP INTACT. D/C INSTRUCTIONS REVIEWED PRIOR TO D/C. TOPICS DISCUSSED INCLUDED: CHF EDUCATION, ANXIETY PREVENTION/TREATMENT, NEW MEDICATIONS, FOLLOW UP APPOINTMENTS, S/S TO REPORT, AND SMOKING CESSATION.
[2016-07-20] MEDS ORDERED: ATORVASTATIN 40 MG TABLET PO SCH (22:00)
[2016-07-21] MEDS ORDERED: BuPROPion XL (24 HR) 150 MG TABLET PO SCH (09:00)
== END 2016-07-20 17:40 | disposition home or self-care (01) ==
LOC: SRG 16:50
PROVIDERS: ADMIT Internal Medicine Cardiovascular Disease; ATTEND Internal Medicine Cardiovascular Disease
DX: I42.0 Dilated cardiomyopathy (principal); R07.89 Other chest pain; G89.29 Other chronic pain; I50.22 Chronic systolic (congestive) heart failure; R42 Dizziness and giddiness; I95.89 Other hypotension; Z95.810 Presence of automatic (implantable) cardiac defibrillator; E87.6 Hypokalemia; I10 Essential (primary) hypertension; Z76.82 Awaiting organ transplant status; F41.1 Generalized anxiety disorder; F32.9 Major depressive disorder, single episode, unspecified; Z87.891 Personal history of nicotine dependence; Z98.61 Coronary angioplasty status; Z79.82 Long term (current) use of aspirin; Z79.899 Other long term (current) drug therapy
CPT/HCPCS: 36415; 80048; 83735; 83880; 84484; 85025; 93005; A9270; G0378; G0379; J1650; 99218

== ENCOUNTER 2017-03-18 11:58 | Observation (INO) ==
--- OUTSIDE RECORDS SUMMARY | 2017-03-18 13:07 | External Medical Summary | Continuity of Care Document ---
:1970 Author Organization [facility] Care Team Providers Name Role Phone [employer] Unavailable Unavailable Family History Value Date Source Advance Directives Order Name Results Value Date Source
--- OUTSIDE RECORDS SUMMARY | 2017-03-18 13:08 | External Medical Summary | Referral Summary ---
:1970 Author Organization [facility] Address [address] [place] [address] Care Team Providers Name Role Phone Clara Rush Primary Care Physician Encounter [facility] [id number] Date(s): 12/27/15 - 12/28/15 [facility] [address] [place] [address] Discharge Diagnosis: Elevated troponin I level Discharge Diagnosis: Combined hyperlipidemia Discharge Disposition: 01-Home or Self Care Attending Physician: Simba Hidalgo MD Admitting Physician: Simba Hidalgo MD Vital Signs Most recent to oldest [Reference Range]: 1 Temperature Oral [35.8-37.3 degC] 36.3 degC (12/28/15 12:00 PM) Peripheral Pulse Rate [60-100 bpm] 71 bpm (12/28/15 12:00 PM) Respiratory Rate [14-20 br/min] 16 br/min (12/28/15 8:38 AM) Blood Pressure [90-140/60-90 mmHg] 101/67 mmHg (12/28/15 12:00 PM) SpO2 100 % (12/28/15 12:00 PM) Remote Telemetry Initiated (12/28/15 8:39 AM) Problem List Condition Effective Dates Status Health Status Informant Acute pain(Confirmed) Active At risk for infection(Confirmed)1 Active CHF (congestive heart Active patient failure)(Confirmed) Fluid imbalance(Confirmed)2 Active Hypertension(Confirmed) Active patient Impaired gas exchange(Confirmed)3 Active Impaired skin integrity(Confirmed)4 Active Kidney stones(Confirmed) Resolved Knowledge deficit(Confirmed)5 Active 1Problem added automatically by system based on initiation of At Risk for Infection in Nutrition Planof [id number] added automatically by system based on initiation of Fluid Volume Imbalance Plan of [id number] added automatically by system based on initiation of Impaired Gas Exchange Plan of [id number] added automatically by system based on initiation of Impaired Skin Integrity Plan of [id number] added automatically by system based on initiation of Knowledge Deficit Plan of Care Allergies, Adverse Reactions, Alerts No Known Medication Allergies Medications aspirin 81 mg, Oral, Daily, 0 Refill(s) Start Date: 12/27/15 Status: Orderedatorvastatin 40 mg oral tablet 40 mg 1 tabs, Oral, Daily, # 90 tabs, 3 Refill(s) Start Date: 12/28/15 Status: Orderedcarvedilol 6.25 mg, Oral, BID, 0 Refill(s) Start Date: 12/27/15 Status: Orderedfurosemide 40 mg, Oral, Daily, 0 Refill(s) Start Date: 12/27/15 Status: Orderedlosartan 25 mg, Oral, Daily, 0 Refill(s) Start Date: 12/27/15 Status: OrderedProtonix 40 mg oral delayed release tablet 40 mg 1 tabs, Oral, Before Breakfast, # 30 tabs, 3 Refill(s) Start Date: 12/28/15 Status: Orderedsotalol 40 mg, Oral, BID, 0 Refill(s) Start Date: 12/27/15 Status: Orderedspironolactone 25 mg, Oral, Daily, 0 Refill(s) Start Date: 12/27/15 Status: Ordered Results Hematology Most recent to oldest [Reference Range]: 1 WBC [4.8-10.8 10*3/uL] 5.6 10*3/uL (12/27/15 2:51 PM) RBC [4.60-6.20] 4.36 *LOW* (12/27/15 2:51 PM) Hgb [14.0-18.0 gm/dL] 14.9 gm/dL (12/27/15 2:51 PM) Hct [42.0-52.0 %] 42.4 % (12/27/15 2:51 PM) MCV [82.0-99.0 fL] 97.2 fL (12/27/15 2:51 PM) MCH [27.0-32.0 pg] 34.2 pg *HI* (12/27/15 2:51 PM) MCHC [32.0-36.0 gm/dL] 35.1 gm/dL (12/27/15 2:51 PM) RDW [11.5-14.5 %] 12.2 % (12/27/15 2:51 PM) Platelet [150-400 10*3/uL] 232 10*3/uL (12/27/15 2:51 PM) MPV [9.4-12.3 fL] 10.5 fL (12/27/15 2:51 PM) Chemistry Most recent to oldest [Reference Range]: 1 Sodium Lvl [136-144 mEq/L] 138 mEq/L (12/27/15 2:51 PM) Potassium Lvl [3.6-5.1 mEq/L] 4.1 mEq/L (12/27/15 2:51 PM) Chloride [99-109 mEq/L] 110 mEq/L *HI* (12/27/15 2:51 PM) CO2 [22-32 mEq/L] 24 mEq/L (12/27/15 2:51 PM) AGAP [3-20] 4 (12/27/15 2:51 PM) BUN [4-20 mg/dL] 17 mg/dL (12/27/15 2:51 PM) Glucose Lvl [70-100 mg/dL] 90 mg/dL (12/27/15 2:51 PM) Creatinine Lvl [0.64-1.27 mg/dL] 1.10 mg/dL (12/27/15 2:51 PM) eGFR [>60] >60 1 (12/27/15 2:51 PM) Calcium Lvl [8.6-10.0 mg/dL] 8.7 mg/dL (12/27/15 2:51 PM) BNP [0-99 pg/mL] 687 pg/mL *HI* (12/28/15 3:01 AM) Troponin [<0.06 ng/mL] 0.11 ng/mL 2 *HHI* (12/28/15 8:45 AM) Chol [0-200 mg/dL] 217 mg/dL *HI* (12/27/15 2:51 PM) Trig [0-150 mg/dL] 161 mg/dL *HI* (12/27/15 2:51 PM) HDL [>40 mg/dL] 26 mg/dL *ABN* (12/27/15 2:51 PM) LDL [0-100 mg/dL] 159 mg/dL *HI* (12/27/15 2:51 PM) VLDL Cholesterol [0-30 mg/dL] 32 mg/dL *HI* (12/27/15 2:51 PM) Cardiac Risk [0.0-5.7] 8.3 *HI* (12/27/15 2:51 PM) 1Result Comment: Multiply eGFR results by 1.21 for race.2Result Comment: Critical value called, and read-back verified. Called to Julian Choe RN ([id number]) 12/28/2015 10:53 Immunizations Vaccine Date Refusal Reason influenza virus vaccine, inactivated 12/27/15 influenza virus vaccine, inactivated 04/20/14 pneumococcal 23-polyvalent vaccine 04/20/14 Procedures Procedure Date Related Diagnosis Body Site Thoracotomy (Left)1 04/03/14 Cholecystectomy Pacemaker 1auto-populated from documented surgical case Social History Social History Type Response Smoking Status Current every day smoker; Tobacco use per day: 1 Pack Assessment and Plan No data available for this section
--- OUTSIDE RECORDS SUMMARY | 2017-03-18 13:08 | External Medical Summary | CCD ---
:1970 Author Name DERIC ALSTON Address [address], [place] [id number] Care Team Providers Name Role Phone JAS FLORES Attending Physician Unavailable JAS FLORES Er Physician 1 Unavailable FRANCIS Prescott Registered Nurse Unavailable Vital Signs Unknown or Not Available. Allergies Allergy Code Allergy Type Reaction Status No Known Allergies 0 No known allergies Active Procedures Unknown or Not Available. History of Immunizations Immunization Code Date Tdap 115 01/08/2013 Problems Unknown or Not Available. Results CARDIAC PANEL - Collect Date/Time: 12/26/2015 20:10 Test Name Code Test Result Test Units Test Ref Range CKMB 1.1 ng/mL L=0.0 H=3.6 CPK 69 U/L L=26 H=308 CKMB% 1.6 % L=0.0 H=4.0 TROPONIN I 0.40 ng/mL L=0.00 H=0.05 COMP METABOLIC - Collect Date/Time: 12/26/2015 20:10 Test Name Code Test Result Test Units Test Ref Range GLUCOSE 94 mg/dL L=70 H=110 BUN 16 mg/dL L=7 H=18 CREATININE 1.15 mg/dL L=0.60 H=1.30 AGE 45 YEARS GFR 68.2 SODIUM 141 mmol/L L=136 H=145 POTASSIUM 4.0 mmol/L L=3.5 H=5.1 CHLORIDE 106 mmol/L L=98 H=107 CO2 26 mmol/L L=21 H=32 CALCIUM 8.4 mg/dL L=8.5 H=10.1 AST 15 U/L L=15 H=37 ALT 36 U/L L=12 H=78 ALKALINE PHOS 57 U/L L=46 H=116 TOTAL PROTEIN 6.8 g/dL L=6.4 H=8.2 ALBUMIN 3.3 g/dL L=3.4 H=5.0 TOTAL BILI 0.90 mg/dL L=0.00 H=1.00 PRO B-TYPE NATRIURETIC PEPTIDE - Collect Date/Time: 12/26/2015 20:10 Test Name Code Test Result Test Units Test Ref Range PBNP 3394 pg/mL L=0 H=125 CBC W/ DIFF - Collect Date/Time: 12/26/2015 20:10 Test Name Code Test Result Test Units Test Ref Range WBC 7.8 x10^3 L=4.8 H=10.8 RBC 4.80 x10^6 L=4.70 H=6.10 HEMOGLOBIN 16.1 g/dL L=14.0 H=18.0 HEMATOCRIT 46.3 % L=42.0 H=52.0 MCV 97 fL L=80 H=100 MCH 33.6 pg L=27.0 H=33.0 MCHC 34.8 g/dL L=33.0 H=37.0 RDW 12.2 % L=11.5 H=14.5 PLATELETS 250 x10^3 L=150 H=450 MPV 8.2 fL L=7.8 H=11.0 NEUTROPHILS 48.3 % L=40.0 H=80.0 LYMPHOCYTES 37.7 % L=20.0 H=45.0 MONOCYTES 8.7 % L=0.0 H=10.0 EOSINOPHILS 3.5 % L=0.0 H=5.0 BASOPHILS 1.8 % L=0.0 H=2.0 REFLEX MAN DIFF NO N/A Active Medications Unknown or Not Available. Medications Administered During Visit Unknown or Not Available. Encounters Encounter Diagnosis Diagnosis Code Start Date Chest pain, unspecified R079 12/26/2015 Social History Smoking Status Code Start Date End Date Current every day [id number] smoker Patient Decision Aids Unknown or Not Available. Discharge Instructions You were admitted to [facility] on 12/26/2015 19:45 with a principal diagnosis of Chest pain, unspecified You had the following tests done: CARDIAC PANEL CBC W/ DIFF COMP METABOLIC PRO B-TYPE NATRIURETIC PEPTIDE You were discharged from [facility] on 12/26/2015 22:25 Should you have any questions prior to discharge, please contact a member of your healthcare team. If you have left the hospital and have any questions, please contact your primary care physician. Chief Complaint and Reason For Visit Chief Complaint Date of Onset LIGHTHEAD/DIZZINESS Function Status Unknown or Not Available. Plan of Care Unknown or Not Available. Referral/Transition of Care Unknown or Not Available.
--- OUTSIDE RECORDS SUMMARY | 2017-03-18 13:08 | External Medical Summary | Encounter Summary ---
:1970 Author Organization [facility] Address [address] [place] [address] Phone Care Team Providers Name Role Phone Unavailable Primary Care Provider Unavailable Reason for Visit Reason Comments Medication Follow-up Encounter Details Date Type Department Care Team Description 03/04/2017 Telephone [facility] CARDIOLOGY Ana Sosa, Medication Follow-up [address] PHARMD [facility] [address] [place] [address] Social History Tobacco Use Types Packs/Day Years Used Date Former Smoker Cigarettes 1 Quit: 06/29/2016 Alcohol Use Drinks/Week oz/Week Comments Yes 1 Standard drinks or equivalent 0.6 Sex Assigned at Date Recorded Not on file as of this encounter Functional Status Functional Status Response Date of Assessment Does the patient have a hearing impairment: No 07/28/2016 Does the patient have a visual impairment: No 07/28/2016 Does the patient have impaired ambulation: No 07/28/2016 Does the patient have an activity of daily living (ADL) No 07/28/2016 impairment: Does the patient have an instrumental activity of daily No 07/28/2016 living (IADL) impairment: Cognitive Status Response Date of Assessment Does the patient have a cognitive impairment: No 07/28/2016 as of this encounter Progress Notes Ana Sosa, PHARMD - 03/04/2017 2:59 PM CSTPatient called stating [facility] cannot bill his [employer] for Entresto as the funds may havepotentially run out. Called [employer] and found out patient has $ 937.90 remaining in his florencio.Pattern Designer at the [employer] also stated that the billing information has changed: ID: [id number] Grp: [id number] PCN: [id number] BIN: [id number] Called [facility] and provided them with the new billing information. When the pharmacy tried to run the Entresto prescription through the insurance and florencio, it still rejected. I told the retail pharmacy technician to call the 800 number that displayed with the rejection and get an override. She stated that they will do that and will call me back if they have any further questions/ concerns. Called patient and informed him. Ana Sosa, PharmD [phone] in this encounter Plan of Treatment Not on fileas of this encounter Visit Diagnoses Not on filein this encounter
--- OUTSIDE RECORDS SUMMARY | 2017-03-18 13:08 | External Medical Summary | Clinical Summary ---
:1970 Author Organization [facility] Address [address] [place] [address] Phone Care Team Providers Name Role Phone Unavailable Primary Care Provider Unavailable Source Comments Some departments are not documenting in the electronic medical record. If you do not see the information that you expected, contact Release of Information in the Health Information Management department at [phone] for further assistance in locating additional records.[facility] Allergies No Known Allergies Current Medications Prescription Sig. Disp. Refills Start Date End Date Status amiodarone (CORDARONE) Take 200 mg by Active 200 mg tablet mouth daily. Take with food. buPROPion XL (WELLBUTRIN Take 150 mg by Active XL) 150 mg tablet mouth every morning. Do not crush or chew. spironolactone Take 25 mg by Active (ALDACTONE) 25 mg tablet mouth daily. Take with food. fluticasone (FLONASE) 50 Apply 1 [place] to Active mcg/actuation nasal spray each nostril as directed twice daily. Shake bottle gently before using. pantoprazole DR Take 40 mg by Active (PROTONIX) 40 mg tablet mouth daily. sacubitril/valsartan Take 1 Tab by Active (ENTRESTO) 49/51 mg mouth twice daily. tablet naproxen sodium (ALEVE) Take 1 Tab by Active 220 mg capsule mouth as Needed. Take with food. aspirin EC 81 mg tablet Take 81 mg by Active mouth daily. Take with food. atorvastatin (LIPITOR) 40 Take 40 mg by Active mg tablet mouth daily. carvedilol (COREG) 12.5 Take 12.5 mg by Active mg tablet mouth twice daily with meals. Take with food. loratadine (CLARITIN) 10 Take 10 mg by Active mg tablet mouth every morning. potassium chloride SR Take 1 Tab by 90 Cap 3 08/04/2016 Active (K-DUR) 10 mEq mouth daily. Take tabletIndications: with a meal and a Dilated cardiomyopathy full glass of ([facility]) water. furosemide (LASIX) 40 mg Take 0.5 Tabs by 90 Tab 3 08/17/2016 Active tabletIndications: mouth daily. Dilated cardiomyopathy ([facility]) docusate (COLACE) 100 mg Take 100 mg by Active capsule mouth twice daily. Active Problems Problem Noted Date Combined systolic and diastolic congestive heart failure, NYHA class 3 2016 ([facility]) Biventricular ICD (implantable cardioverter-defibrillator) in place 08/24/2016 Mixed hyperlipidemia 07/21/2016 Overview: a. Lipitor 40 mg HS Costochondritis 06/30/2016 Overview: a. 05.12.2016 - Indocin --> constant soreness continued b. 06.30.2016 - Aleve --> symptoms improved Bronchitis 06/25/2016 Overview: a. 06.25.2016 - Doxycycline --> no CXR or lab work done Acute sinusitis 06/25/2016 Overview: a. 06.25.2016 - Doxycycline --> No /CXR or lab done Chest wall pain, chronic 05/10/2016 Overview: a. 2..2016 - Indocin --> constant soreness continued b. ..2016 - Aleve BID --> symptoms improved NSVT (nonsustained ventricular tachycardia) ([facility]) 10/10/2015 Overview: a. - ICD fired Dilated cardiomyopathy ([facility]) 11/05/2013 Overview: a. 11.05.2013 - Cardiac Cath: Alban mclain Via Dr. Mat De Jesus @ [facility] LV dysfunction 11/05/2013 Overview: a. 11.05.2013 - LVG: EF 10% --> Severely hypokinetic w/ global hypokinesis b11.05.2013 - Echo - EF 23% / LVIDd 8.2 cm w/ diffuse hypokinesis c. 02.06.2014 - Echo - EF 18% w/ severe hypokinesis d02.20.2014 - Placement of a Bi-Ventricular /ICD Pacemaker ([employer]) via Dr. Rahman @ [facility], [place], [place] e. 04.20.2014 - Echo - EF 10-15% / LVIDd 8.2 cm w/ global LV hypokinesis. f. 12.08.2015 - Echo - EF <20% w/ severe global hypokinesis g. 05.10.2016 - Echo - EF 15-20% w/ severe global hypokinesis @ [facility]. [place], [place] Essential hypertension 11/05/2013 Overview: a. Cough w/ Enalopril Nicotine abuse 10/26/2013 Overview: a. 0.5-1ppd --> Quit 4.4.2016 Encounters Date Type Specialty Care Team Description 03/04/2017 Telephone Cardiology Ana Sosa, PHARMD Medication Follow-up 01/06/2017 Hospital Encounter Israel Arauz MD from Last 3 Months Social History Tobacco Use Types Packs/Day Years Used Date Former Smoker Cigarettes 1 Quit: 06/29/2016 Alcohol Use Drinks/Week oz/Week Comments Yes 1 Standard drinks or equivalent 0.6 Sex Assigned at Date Recorded Not on file Last Filed Vital Signs Vital Sign Reading Time Taken Blood Pressure 93/66 11/19/2016 2:34 PM CDT Pulse 72 11/19/2016 2:34 PM CDT Temperature 36.5 C (97.7 F) 08/04/2016 12:56 PM CDT Respiratory Rate 18 07/28/2016 3:04 PM CDT Oxygen Saturation 92% 11/19/2016 2:34 PM CDT Inhaled Oxygen Concentration - - Weight 93.9 kg (207 lb) 11/19/2016 2:34 PM CDT Height 182.9 cm (6') 11/19/2016 2:34 PM CDT Body Mass Index 28.07 11/19/2016 2:34 PM CDT Plan of Treatment Health Maintenance Due Date Last Done Comments PHYSICAL (COMPREHENSIVE) EXAM 10/10/1975 PERTUSSIS VACCINE 10/10/1979 TETANUS VACCINE 1985 INFLUENZA VACCINE 10/26/2016 Implants Implanted Type Area Chief Cardiopulmonary Technologist Device Identifier Expiration Date Model / Serial / Lot [place] Sci ICD
--- OUTSIDE RECORDS SUMMARY | 2017-03-18 13:08 | External Medical Summary ---
:1970 Author Organization [employer] Care Team Providers Name Role Phone Chetan Fitzpatrick Provider Role Unavailable Allergies No Known Allergies Problems Problem Type Condition Code Onset Dates Condition Status Assessment Encounter for dental examination and Z01.20 Active cleaning without abnormal findings Medications Medication Code Code Instructions Start End Status Dosage System Date Date Furosemide NDC 0 [place] [address]-48 not Calcium 22-05 [place] S[place] [address]-06 not 76-10 [place] [address]-80 500 MG Orally 1 capsule 09-05 every 8 hrs for Pantoprazole NDC 54126-83 not Sodium 69-14 [place] [address]-10 not Strength 59-68 defined Spironolactone NDC 44087-04 not 72-11 defined Losartan Potassium NDC 18712-95 not 25-22 defined Hydrocodone-Acetam NDC 98305-90 7.5-325 MG 1 tablet inophen 66-01 Orally every 4-6 as needed hrs p.r.n. for Carvedilol NDC 91703-90 not 51-01 defined Procedures Procedure Coding System Code Date OV OBS - NO OTH SRVC PRFRM SEE CPT CPT-4 D9430 Feb 11, 2016 Results No Known Results Summary Purpose [employer] Mill Submission
--- OUTSIDE RECORDS SUMMARY | 2017-03-18 13:08 | External Medical Summary | Encounter Summary ---
:1970 Author Organization [facility] Address [address] [facility] [address] [place] [address] Phone Care Team Providers Name Role Phone Unavailable Primary Care Provider Unavailable Encounter Details Date Type Department Care Team Description [facility]/06[facility]2017 [facility] [address] [facility] [address] [place] [address] [phone] Social History Tobacco Use Types Packs/Day Years [...] impairment: No 07/28/2016 as of this encounter Medications at Time of Discharge Medication Sig. Disp. Refills Start Date End Date amiodarone (CORDARONE) 200 Take 200 mg by mouth mg tablet daily. Take with food. aspirin EC 81 mg tablet Take 81 mg by mouth daily. Take with food. atorvastatin (LIPITOR) 40 mg Take 40 mg by mouth tablet daily. buPROPion XL (WELLBUTRIN XL) Take 150 mg by mouth 150 mg tablet every morning. Do not crush or chew. carvedilol (COREG) 12.5 mg Take 12.5 mg by mouth tablet twice daily with meals. Take with food. docusate (COLACE) 100 mg Take 100 mg by mouth capsule twice daily. fluticasone (FLONASE) 50 Apply 1 [place] to each mcg/actuation nasal spray nostril as directed twice daily. Shake bottle gently before using. furosemide (LASIX) 40 mg Take 0.5 Tabs by mouth 90 Tab 3 08/17/2016 tabletIndications: Dilated daily. cardiomyopathy (HCC) loratadine (CLARITIN) 10 mg Take 10 mg by mouth tablet every morning. naproxen sodium (ALEVE) 220 Take 1 Tab by mouth as mg capsule Needed. Take with food. pantoprazole DR (PROTONIX) Take 40 mg by mouth 40 mg tablet daily. potassium chloride SR Take 1 Tab by mouth 90 Cap 3 08/04/2016 (K-DUR) 10 mEq daily. Take with a tabletIndications: Dilated meal and a full glass cardiomyopathy (HCC) of water. sacubitril/valsartan Take 1 Tab by mouth (ENTRESTO) 49/51 mg tablet twice daily. spironolactone (ALDACTONE) Take 25 mg by mouth 25 mg tablet daily. Take with food. as of this encounter Plan of Treatment Not on fileas of this encounter Results PFT CARDIOPULMONARY EXERCISE TEST (12/08/2016 12:58 PM) Component Value Ref Range FVC-Pre 4.12 L FVC-%Pred-pre 78 % FEV1-Pre 3.17 L FEV1-%Pred-Pre 77 % FKE4223-Mjb 2.55 L/sec QGC5687-%Pred-Pre 69 % PEF-Pre 472.8 L/min RER-WorkMax 1.01 EW5UV-XacmVuo 18 mL/beat IW4CT-VkebKdu 15 mL/beat QQ0Osjx-FK 32 % AL7Vxvb-CzuzAgh 45 % HRPred-WorkMax 55 % VE_BTPS-WorkMax 48.4 L/min PETCO2-AT 34 mmHg VO2_mLmin-WorkMax 1384 mL/min VO2_kg-WorkMax 14.5 mL/kg/min HR-WorkMax 95 BPM Specimen Performing Laboratory [facility] [address] [place] [address] in this encounter Visit Diagnoses Diagnosis Acute on chronic combined systolic and diastolic congestive heart failure, NYHA class 3 (HCC) - Primary Acute on chronic combined systolic and diastolic heart failure in this encounter
--- OUTSIDE RECORDS SUMMARY | 2017-03-18 13:08 | External Medical Summary ---
:1970 Author Organization [employer] Care Team Providers Name Role Phone Chetan Fitzpatrick Provider Role Unavailable Allergies No Known Allergies Problems Problem Type Condition Code Onset Dates Condition Status Assessment Dental caries on pit and fissure K02.53 Active surface penetrating into pulp Medications Medication Code Code Instructions Start End Status Dosage System Date Date Aspirin Adult Low NDC 03830-73 not Strength 59-68 defined Furosemide NDC 0 [place] [address]-78 not 25-22 defined Carvedilol NDC 16811-12 not 51-01 [place] [address]-68 not Calcium 22-05 defined Spironolactone NDC 69532-28 not 72-11 [place] [address]-46 not 76-10 [place] [address]-15 7.5-325 MG 1 tablet inophen 66-01 Orally every 4-6 as needed hrs p.r.n. for Pantoprazole NDC 49483-10 not Sodium 69-14 defined Procedures Procedure Coding System Code Date SURG REMOVAL ERUPTED TOOTH CPT-4 D7210 Jan 22, 2016 Results No Known Results Summary Purpose eClinicalWorks Submission
--- OUTSIDE RECORDS SUMMARY | 2017-03-18 13:08 | External Medical Summary | CCD ---
:1970 Author Name DERIC ALSTON Address [address], [place] [address] Care Team Providers Name Role Phone CORRIE SUÁREZ Attending Physician Unavailable CORRIE SUÁREZ Er Physician 1 Unavailable AAKASH Simmons Registered Nurse Unavailable Vital Signs Unknown or Not Available. Allergies Allergy Code Allergy Type Reaction Status No Known Allergies 0 No known allergies Active Procedures Unknown or Not Available. History of Immunizations Immunization Code Date Tdap 115 01/08/2013 Problems Unknown or Not Available. Results CARDIAC PANEL - Collect Date/Time: 12/09/2015 10:25 Test Name Code Test Result Test Units Test Ref Range CKMB 10.7 ng/mL L=0.0 H=3.6 CPK 944 U/L L=26 H=308 CKMB% 1.1 % L=0.0 H=4.0 TROPONIN I 2.35 ng/mL L=0.00 H=0.05 COMP METABOLIC - Collect Date/Time: 12/09/2015 10:25 Test Name Code Test Result Test Units Test Ref Range GLUCOSE 114 mg/dL L=70 H=110 BUN 14 mg/dL L=7 H=18 CREATININE 1.03 mg/dL L=0.60 H=1.30 AGE 45 YEARS GFR 77.4 SODIUM 140 mmol/L L=136 H=145 POTASSIUM 3.2 mmol/L L=3.5 H=5.1 CHLORIDE 107 mmol/L L=98 H=107 CO2 22 mmol/L L=21 H=32 CALCIUM 8.8 mg/dL L=8.5 H=10.1 AST 39 U/L L=15 H=37 ALT 35 U/L L=12 H=78 ALKALINE PHOS 57 U/L L=46 H=116 TOTAL PROTEIN 6.8 g/dL L=6.4 H=8.2 ALBUMIN 3.5 g/dL L=3.4 H=5.0 TOTAL BILI 1.10 mg/dL L=0.00 H=1.00 PRO B-TYPE NATRIURETIC PEPTIDE - Collect Date/Time: 12/09/2015 10:25 Test Name Code Test Result Test Units Test Ref Range PBNP 7549 pg/mL L=0 H=125 CBC W/ DIFF - Collect Date/Time: 12/09/2015 10:25 Test Name Code Test Result Test Units Test Ref Range WBC 7.4 x10^3 L=4.8 H=10.8 RBC 4.52 x10^6 L=4.70 H=6.10 HEMOGLOBIN 15.3 g/dL L=14.0 H=18.0 HEMATOCRIT 44.2 % L=42.0 H=52.0 MCV 98 fL L=80 H=100 MCH 33.8 pg L=27.0 H=33.0 MCHC 34.6 g/dL L=33.0 H=37.0 RDW 12.5 % L=11.5 H=14.5 PLATELETS 245 x10^3 L=150 H=450 MPV 8.1 fL L=7.8 H=11.0 NEUTROPHILS 56.0 % L=40.0 H=80.0 LYMPHOCYTES 29.0 % L=20.0 H=45.0 MONOCYTES 11.1 % L=0.0 H=10.0 EOSINOPHILS 3.6 % L=0.0 H=5.0 BASOPHILS 0.3 % L=0.0 H=2.0 REFLEX MAN DIFF NO N/A PT/INR - Collect Date/Time: 12/09/2015 10:25 Test Name Code Test Result Test Units Test Ref Range PT 10.9 Secs L=9.4 H=11.0 INR 1.07 L=0.00 H=4.00 Active Medications Unknown or Not Available. Medications Administered During Visit Unknown or Not Available. Encounters Encounter Diagnosis Diagnosis Code Start Date Other chest pain R0789 12/09/2015 Social History Smoking Status Code Start Date End Date Current every day [id number] smoker Patient Decision Aids Unknown or Not Available. Discharge Instructions You were admitted to [facility] on 12/09/2015 10:13 with a principal diagnosis of Other chest pain You had the following tests done: CARDIAC PANEL CBC W/ DIFF COMP METABOLIC PRO B-TYPE NATRIURETIC PEPTIDE PT/INR You were discharged from [facility] on 12/09/2015 12:48 Should you have any questions prior to discharge, please contact a member of your healthcare team. If you have left the hospital and have any questions, please contact your primary care physician. Chief Complaint and Reason For Visit Chief Complaint Date of Onset CHEST PAIN Function Status Unknown or Not Available. Plan of Care Unknown or Not Available. Referral/Transition of Care Unknown or Not Available.
--- OUTSIDE RECORDS SUMMARY | 2017-03-18 13:08 | External Medical Summary | CCD ---
:1970 Author Name DERIC ALSTON Address [address], [place] [id number] Care Team Providers Name Role Phone KATINA LOPEZ Attending Physician Unavailable KATINA LOPEZ Er Physician 1 Unavailable Vital Signs Vital Sign Value Unit Date/Time Recent/Initial? Weight Measured 190 lbs 05/18/2016 05:14 Initial VS Height 72 in 05/18/2016 05:14 Initial VS BMI (Body Mass 25.77 kg/m^2 05/18/2016 05:14 Initial VS Index) BSA (Body Surface 2.09 m^2 05/18/2016 05:14 Initial VS Area) Allergies Allergy Code Allergy Type Reaction Status [...] 1.6 % L=0.0 H=4.0 TROPONIN I 1.07 ng/mL L=0.00 H=0.05 COMP METABOLIC - Collect Date/Time: 05/18/2016 05:15 Test Name Code Test Result Test Units Test Ref Range GLUCOSE 93 mg/dL L=70 H=110 BUN 11 mg/dL L=7 H=18 CREATININE 0.93 mg/dL L=0.60 H=1.30 AGE 45 YEARS GFR 87.1 L=60.0 H=120 SODIUM 142 mmol/L L=136 H=145 POTASSIUM 2.8 mmol/L L=3.5 H=5.1 CHLORIDE 105 mmol/L L=98 H=107 CO2 25 mmol/L L=21 H=32 CALCIUM 9.0 mg/dL L=8.5 H=10.1 AST 34 U/L L=15 H=37 ALT 85 U/L L=12 H=78 ALKALINE PHOS 70 U/L L=46 H=116 TOTAL PROTEIN 7.8 g/dL L=6.4 H=8.2 ALBUMIN 3.9 g/dL L=3.4 H=5.0 TOTAL BILI 0.80 mg/dL L=0.00 H=1.00 PRO B-TYPE NATRIURETIC PEPTIDE - Collect Date/Time: 05/18/2016 05:15 Test Name Code Test Result Test Units Test Ref Range PBNP 39073 pg/mL L=0 H=125 CBC W/ DIFF - Collect Date/Time: 05/18/2016 05:15 Test Name Code Test Result Test Units Test Ref Range WBC 8.4 x10^3 L=4.8 H=10.8 RBC 4.92 x10^6 L=4.70 H=6.10 HEMOGLOBIN 16.1 g/dL L=14.0 H=18.0 HEMATOCRIT 47.2 % L=42.0 H=52.0 [...] L=0.0 H=2.0 REFLEX MAN DIFF NO N/A D-DIMER, QUANTITATIVE - Collect Date/Time: 05/18/2016 05:15 Test Name Code Test Result Test Units Test Ref Range D-DIMER, QUANT <100 ng/mL L=0 H=400 Active Medications Unknown or Not Available. Medications Administered During Visit Unknown or Not Available. Encounters Unknown or Not Available. Social History Smoking Status Code Start Date End Date Current every day [id number] smoker Patient Decision Aids Unknown or Not Available. Discharge Instructions You were admitted to [facility] on 05/18/2016 04:50 You had the following tests done: CARDIAC PANEL CBC W/ DIFF COMP METABOLIC D-DIMER, QUANTITATIVE PRO B-TYPE NATRIURETIC PEPTIDE You were discharged from [facility] on 05/18/2016 09:00 Should you have any [...]
[2017-03-18 13:09] VITALS: BMI 30.7
--- OUTSIDE RECORDS SUMMARY | 2017-03-18 13:09 | External Medical Summary | CCD ---
:1970 Author Name DARCIE MONTERROSO Herrera Address [address], [place] [address] Care Team Providers Name Role Phone KATIE WEIR Attending Physician Unavailable Vital Signs Unknown or Not Available. Allergies Allergy Code Allergy Type Reaction Status No Known Allergies 0 No known allergies Active Procedures Unknown or Not Available. History of Immunizations Immunization Code Date Tdap 115 01/08/2013 Problems Unknown or Not Available. Results BASIC METABOLIC - Collect Date/Time: 12/12/2014 13:20 Test Name Code Test Result Test Units Test Ref Range GLUCOSE 100 mg/dL L=70 H=110 BUN 12 mg/dL L=7 H=18 CREATININE 1.00 mg/dL L=0.60 H=1.30 AGE 44 YEARS GFR 85.5 SODIUM 139 mmol/L L=136 H=145 POTASSIUM 3.4 mmol/L L=3.5 H=5.1 CHLORIDE 106 mmol/L L=98 H=107 CO2 24 mmol/L L=21 H=32 CALCIUM 8.7 mg/dL L=8.5 H=10.1 MAGNESIUM - Collect Date/Time: 12/12/2014 13:20 Test Name Code Test Result Test Units Test Ref Range MAGNESIUM 2.2 mg/dL L=1.8 H=2.4 TSH - Collect Date/Time: 12/12/2014 13:20 Test Name Code Test Result Test Units Test Ref Range TSH 0.81 uIU/mL L=0.36 H=3.74 Active Medications Unknown or Not Available. Medications Administered During Visit Unknown or Not Available. Encounters Encounter Diagnosis Diagnosis Code Start Date [place] [address] 12/12/2014 Social History Smoking Status Code Start Date End Date Current every day [id number] smoker Patient Decision Aids Unknown or Not Available. Discharge Instructions You were admitted to [facility] on with a principal diagnosis of PREMATURE BEATS NEC. You were discharged from [facility] on 12/12/2014. Should you have any questions prior to discharge, please contact a member of your healthcare team. If you have left the hospital and have any questions, please contact your primary care physician. Chief Complaint and Reason For Visit Unknown or Not Available. Function Status Unknown or Not Available. Plan of Care Unknown or Not Available. Referral/Transition of Care Unknown or Not Available.
--- OUTSIDE RECORDS SUMMARY | 2017-03-18 13:09 | External Medical Summary | Continuity of Care Document ---
:1970 Author Organization [facility] Allergies Active Description Code Type Severity Reaction Onset Reported/ Identified Relationship Clinical to Patient Status Yes No Known NKMA N/A N/A 11/01/2013 Medication Allergies Yes No Known No Drug Unknown N/A 11/04/2013 Allergies Known Aller Aller gy gies Medications Medication Packaging Start Stop Route Dosage Sig Date Date 1 autumn 04/03/19 Nasal mupirocin 5 15 1 autumn, topical(Bactroba Nasal, BID n) 2 tabs 04/03/19 Oral 600 mg allopurinol(Zylo 5 15 600 mg, prim) Oral, Daily 1 supp 04/03/19 Rectal 650 mg acetaminophen(ac 5 15 650 mg, etaminophen) Rectal, q4hr, PRN: Pain 1 tabs 04/03/19 Oral 5 mg zolpidem(Ambien) 5 15 5 mg, Oral, Bedtime (once a day), PRN: Insomnia 1 tabs 12/27/19 Oral 25 mg spironolactone(s 5 16 1 tabs, pironolactone 25 Oral, Daily mg oral tablet) 1 tabs 12/27/19 Oral 40 mg furosemide(Lasix 5 16 1 tabs, 40 mg oral Oral, Daily tablet) 1 tabs 04/23/19 Oral 5 mg enalapril(enalap 5 15 1 tabs, ril 5 mg oral Oral, BID tablet) 1 tabs 04/23/19 Oral 3.125 mg carvedilol(carve 5 15 1 tabs, dilol 3.125 mg Oral, BID oral tablet) 2 mL 04/03/19 IV Push 4 mg ondansetron(Zofr 5 15 4 mg, IV an) Push, Once 04/03/19 IV Push 0.5 mg HYDROmorphone(Di 5 15 0.5 mg, IV laudid) Push, q5min, PRN: Pain 1,000 mL 04/03/19 IV Lactated Ringers 5 15 10 mL/hr, IV Injection(Lactat ed Ringers Injection 1,000 mL) 2 mL 04/03/19 IV Push 2 mg midazolam(Versed 5 15 2 mg, IV ) Push, Once 1,000 mL 04/03/19 IV Lactated Ringers 5 15 10 mL/hr, IV Injection(Lactat ed Ringers Injection 1,000 mL) 0.25 mL 04/04/19 IV Push 0.5 mg HYDROmorphone(Di 5 15 0.5 mg, IV laudid) Push, q10min, PRN: Pain 1 caps 04/08/19 Oral 100 mg docusate(Colace) 5 15 100 mg, Oral, BID 1 tabs 04/08/19 Oral 8.6 mg senna(senna 8.6 5 15 8.6 mg, 1 mg oral tablet) tabs, Oral, Daily 1 packets 04/08/19 Oral 17 g polyethylene 5 15 17 g, Oral, glycol Daily 3350(MiraLax) 04/03/19 Oral HYDROmorphone(Di 5 15 0.5-1 mg, laudid) Oral, q2hr, PRN: Pain 1 tabs 04/08/19 Oral 20 mg famotidine(Pepci 5 15 20 mg, Oral, d) BID 04/08/19 Oral HYDROcodone-acet 5 15 1-2 tabs, aminophen([place] Oral, q4hr, 5 mg-325 mg oral PRN: Pain tablet) Moderate (4-6) 0.5 mL 04/03/19 NEB 2.5 mg albuterol(albute 5 15 2.5 mg, 0.5 rol 5 mg/mL mL, NEB, (0.5%) q4hr inhalation (scheduled) solution) 1 tabs 04/08/19 Oral 3.125 mg carvedilol(carve 5 15 3.125 mg, dilol) Oral, BIDWM 04/08/19 IV Push HYDROmorphone(Di 5 15 0.5 mg-1 mg, laudid) IV Push, q2hr, PRN: Pain Severe (7-10) 2.5 mL 04/08/19 NEB 0.5 mg ipratropium(ipra 5 15 0.5 mg, 2.5 tropium 500 mL, NEB, mcg/2.5 mL q2hr inhalation (scheduled), solution) PRN: Other (See Comment) 0.5 mL 04/08/19 NEB 2.5 mg albuterol(albute 5 15 2.5 mg, 0.5 rol 5 mg/mL mL, NEB, (0.5%) q2hr inhalation (scheduled), solution) PRN: Other (See Comment) 1 tabs 04/03/19 Oral 4 mg ondansetron(Zofr 5 15 4 mg, Oral, an) q8hr, PRN: Nausea or Vomiting 2 mL 04/08/19 IV Push 4 mg ondansetron(Zofr 5 15 4 mg, IV an) Push, q6hr, PRN: Nausea or Vomiting 1 patches 04/08/19 TransDermal nicotine(nicotin 5 15 1 patches, e 21 mg/24 hr TransDermal, transdermal Daily film, extended release) 1 mL 04/04/19 IV Push 15 mg ketorolac([place] 5 15 15 mg, IV l) Push, q6hr 4 mL 04/05/19 IV Push 40 mg furosemide(Lasix 5 15 40 mg, IV ) Push, Daily 1 tabs 04/08/19 Oral 5 mg lisinopril(lisin 5 15 5 mg, Oral, opril) Daily 1 tabs 04/08/19 Oral 25 mg spironolactone(s 5 15 25 mg, Oral, pironolactone) Daily 2 tabs 04/05/19 Oral 40 mEq potassium 5 15 40 mEq, 2 chloride(potassi tabs, Oral, um chloride 20 Once mEq oral tablet, extended release) 1 tabs 04/08/19 Oral 40 mg furosemide(Lasix 5 15 40 mg, Oral, ) Daily 1 tabs 04/06/19 Oral 20 mEq potassium 5 15 20 mEq, 1 chloride(potassi tabs, Oral, um chloride 20 BID mEq oral tablet, extended release) 1 tabs 04/06/19 Oral 20 mEq potassium 5 15 20 mEq, 1 chloride(potassi tabs, Oral, um chloride 20 Once mEq oral tablet, extended release) 1 caps 04/20/19 Oral 100 mg docusate(Colace 5 15 1 caps, 100 mg oral Oral, BID capsule) 06/15/19 Oral HYDROcodone-acet 5 15 1-2 tabs, aminophen([place] Oral, q4hr, 5 mg-325 mg oral 40 tabs, tablet) PRN: Pain Moderate (4-6) 2 tabs 04/23/19 Oral 1,000 mg acetaminophen(ac 5 15 1,000 mg, etaminophen) Oral, q6hr, PRN: Pain Mild (1-3) 0.5 mL 04/20/19 IntraMuscular pneumococcal 5 15 0.5 mL, 23-polyvalent IntraMuscula vaccine(pneumoco r, As ccal Indicated 23-polyvalent vaccine) 04/22/19 IV Piggyback 1 g vancomycin(vanco 5 15 1 g, 166.67 mycin) mL/hr, IV Piggyback, q12hr 1 mL 04/23/19 IV Push 2 mg morphine(morphin 5 15 2 mg, IV e) Push, q4hr, PRN: Angina/Chest Pain 1 tabs 04/21/19 SubLingual 0.4 mg nitroglycerin(ni 5 15 0.4 mg, troglycerin) SubLingual, q5min, PRN: Angina/Chest Pain 1 tabs 04/23/19 Oral 81 mg aspirin(aspirin) 5 15 81 mg, Oral, Daily 1 tabs 04/23/19 Oral 25 mg spironolactone(s 5 15 25 mg, Oral, pironolactone) Daily 1 tabs 04/23/19 Oral HYDROcodone-acet 5 15 1 tabs, aminophen([place] Oral, q4hr, 5 mg-325 mg oral PRN: Pain tablet) Moderate (4-6) 1 tabs 04/23/19 Oral 40 mg furosemide(Lasix 5 15 40 mg, Oral, ) Daily 1 tabs 04/23/19 Oral 0.5 mg LORazepam(Ativan 5 15 0.5 mg, ) Oral, TID, PRN: Anxiety 0.4 mL 04/23/19 SubCutaneous 40 mg enoxaparin(Loven 5 15 40 mg, ox) SubCutaneous , Daily 1 tabs 04/23/19 Oral 5 mg enalapril(enalap 5 15 5 mg, Oral, ril) BID 1 tabs 04/22/19 Oral 3.125 mg carvedilol(Coreg 5 15 3.125 mg, ) Oral, BIDWM 1 tabs 04/23/19 Oral 25 mg metoprolol(metop 5 15 25 mg, 1 rolol tartrate tabs, Oral, 25 mg oral BID tablet) 1 caps 04/23/19 Oral 500 mg cephalexin(Kefle 5 15 500 mg, x) Oral, TID 1 caps 04/28/19 Oral 500 mg cephalexin(Kefle 5 15 1 caps, x 500 mg oral Oral, TID, capsule) 15 caps 0.5 tabs 12/27/19 Oral 12.5 mg metoprolol(metop 5 16 0.5 tabs, rolol tartrate Oral, BID, 25 mg oral 30 tabs tablet) 1 tabs 12/27/19 Oral 2.5 mg enalapril(enalap 5 16 1 tabs, ril 2.5 mg oral Oral, BID, tablet) 60 tabs Oral 25 mg spironolactone(s 6 25 mg, Oral, pironolactone) Daily, 0 Refill(s) Oral 6.25 mg carvedilol(carve 6 6.25 mg, dilol) Oral, BID, 0 Refill(s) Oral 81 mg aspirin(aspirin) 6 81 mg, Oral, Daily, 0 Refill(s) Oral 40 mg sotalol(sotalol) 6 40 mg, Oral, BID, 0 Refill(s) 1 tabs 12/28/19 Oral 10 mEq potassium 6 16 10 mEq=1 chloride(Klor-Co tabs, Oral, n 10 oral Daily, 0 tablet, extended Refill(s) release) Oral 25 mg losartan(losarta 6 25 mg, Oral, n) Daily, 0 Refill(s) Oral 40 mg furosemide(furos 6 40 mg, Oral, emide) Daily, 0 Refill(s) 1 tabs 12/28/19 SubLingual 0.4 mg nitroglycerin(ni 6 16 0.4 mg=1 troglycerin) tabs, SubLingual, q5min, PRN: Angina/Chest Pain 2 tabs 12/28/19 Oral 1,000 mg acetaminophen(ac 6 16 1,000 mg=2 etaminophen) tabs, Oral, q6hr, PRN: Pain Mild (1-3) 1 tabs 12/28/19 Oral 81 mg aspirin(aspirin) 6 16 81 mg=1 tabs, Oral, Daily 2 mL 12/28/19 IV Push 4 mg ondansetron(Zofr 6 16 4 mg=2 mL, an) IV Push, q6hr, PRN: Nausea or Vomiting 4 mL 12/28/19 IV Push 40 mg furosemide(furos 6 16 40 mg=4 mL, emide) IV Push, Daily 1 tabs 12/28/19 Oral 40 mg pantoprazole(Pro 6 16 40 mg=1 tonix) tabs, Oral, Before Breakfast 0.8 mL 12/28/19 SubCutaneous 80 mg enoxaparin(Loven 6 16 80 mg=0.8 ox) mL, SubCutaneous , BID 1 tabs 12/28/19 Oral 25 mg losartan(losarta 6 16 25 mg=1 n) tabs, Oral, Daily 1 tabs 12/28/19 Oral 6.25 mg carvedilol(carve 6 16 6.25 mg=1 dilol) tabs, Oral, BIDWM 1 tabs 12/27/19 Oral 20 mEq potassium 6 16 20 mEq=1 chloride(potassi tabs, Oral, um chloride 20 Once mEq oral tablet, extended release) 1 tabs 12/28/19 Oral 25 mg spironolactone(s 6 16 25 mg=1 pironolactone) tabs, Oral, Daily 0.5 tabs 12/28/19 Oral 40 mg sotalol(sotalol 6 16 40 mg=0.5 80 mg oral tabs, Oral, tablet) BID 1 tabs Oral 40 mg atorvastatin(maria luisa 6 40 mg=1 rvastatin 40 mg tabs, Oral, oral tablet) Daily, 90 tabs, 3 Refill(s) 1 tabs Oral 40 mg pantoprazole(Pro 6 40 mg=1 tonix 40 mg oral tabs, Oral, delayed release Before tablet) Breakfast, 30 tabs, 3 Refill(s) Problems Date Dx Attending Type Code Diagnosis Diagnosed By Coded 04/16/2014 Miah LI, Final 285.1 ACUTE POSTHEMORRHAGIC Alexander ANEMIA 04/16/2014 Miah LI, Final 305.1 TOBACCO USE DISORDER Alexander 04/16/2014 Miah LI, Final 401.9 UNSPECIFIED ESSENTIAL Alexander HYPERTENSION 04/16/2014 Miah LI, Final 425.4 OTHER PRIMARY Alexander CARDIOMYOPATHIES 04/16/2014 Miah LI, Final 428.0 CONGESTIVE HEART Alexander FAILURE, UNSPECIFIED 04/16/2014 Miah LI, Final 428.22 CHRONIC SYSTOLIC Alexander HEART FAILURE 04/29/2014 Simba Hidalgo MD Final 041.10 UNSPECIFIED STAPHYLOCOCCUS INFECTION IN CONDITIONS CLASSIFIED ELSEWHERE AND 04/29/2014 Simba Hidalgo MD Final 305.1 TOBACCO USE DISORDER 04/29/2014 Simba Hidalgo MD Final 425.4 OTHER PRIMARY CARDIOMYOPATHIES 04/29/2014 Simba Hidalgo MD Final 458.9 HYPOTENSION, UNSPECIFIED 04/29/2014 Vera Hidalgo MDy Admitting 786.50 UNSPECIFIED CHEST PAIN 04/29/2014 Gwen Simba IL Final 786.59 OTHER CHEST PAIN 04/29/2014 Gwen Simba LI Final 996.62 INFECTION AND INFLAMMATORY REACTION DUE TO OTHER VASCULAR DEVICE, IMPLANT, 04/29/2014 Gwen Simba LI Final 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 04/29/2014 GwenSimba elder MD Final V06.6 NEED FOR PROPHYLACTIC VACCINATION AND INOCULATION AGAINST STREPTOCOCCUS PNE 12/28/2015 Gwen,, Freidy Admitting R07.9 12/30/2015 Gwen,, Freidy Final F17.210 Nicotine dependence, cigarettes, uncomplicated 12/30/2015 Gwen,, Freidy Final I10 Essential (primary) hypertension 12/30/2015 Gwen,, Wayneidy Final I42.8 Other cardiomyopathies 12/30/2015 Gwen,, Wayneidy Final I49.3 Ventricular premature depolarization 12/30/2015 Gwen,, Wayneidy Final K30 Functional dyspepsia 12/30/2015 Gwen,, Freidy Reason R07.9 Chest pain, unspecified 12/30/2015 Gwen,, Wayneidy Final Z23 Encounter for immunization 12/30/2015 Gwen,, Freidy Final 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 12/30/2015 Gwen,, Freidy Final Z79.899 Other fpc (current) drug therapy 12/30/2015 Gwen,, Wayneidy Final Z95.810 Presence of automatic (implantable) cardiac defibrillator Procedures Code Description Performed By Performed On LEFT HEART Sonido De Jesus MD 11/04/2013 37.22 CARDIAC CATH CONTRAST Sonido De Jesus MD 11/04/2013 88.48 ARTERIOGRAM-LEG LT HEART Sonido De Jesus MD 11/04/2013 88.53 ANGIOCARDIOGRAM CORONAR Sonido De Jesus MD 11/04/2013 88.56 ARTERIOGR-2 CATH Implantation of 04/03/2014 37.95 automatic cardioverter/defibrillator lead(s) only <section xmlns="urn:hl7-org:v3" xmlns:xsi="http://www.w3.org/ 2000/XMLSchema-instance"> <templateId root=" [id number]" /> <templateId root=" [id number]" /> <code codeSystemName=" LOINC" codeSystem="[id number]" code="35249-6&quot ; displayName="Results" /> <title>Results</title> &lt ;text> <table> <thead> <tr> <th& gt;Test</th> <th>Result</th> <th>Range </th> </tr> </thead> <tbody> &lt ;tr> <th colspan="10">CBC - 11/04/13 11:34</th&gt ; </tr> <tr> <td>MEAN CELL HGB</td> <td>33.7 pg</td> <td>27.0-33.0</td> </tr> <tr> <td>MEAN CELL HGB CONCENTRATION</td> <td>36.0 g/dL</td> <td >32.0-37.0</td> </tr> <tr> <td&gt ;MEAN CELL VOLUME</td> <td>93.7 fl</td> < td>80.0-100.0</td> </tr> <tr> <td >RED BLOOD CELL</td> <td>4.30 m/cumm</td> <td>4.00-6.00</td> </tr> <tr> & lt;td>RED CELL DISTRIBUTION WIDTH</td> <td>12.5 &#37 ;</td> <td>11.0-15.6</td></tr> <tr&gt ; <td>WHITE BLOOD CELL</td> <td>9.3 k/cumm& lt;/td> <td>5.0-10.0</td> </tr> < tr> <td>HEMOGLOBIN</td> <td>14.5 gm/dL</td> <td>14.0-18.0</td> </tr> <tr> <td>HEMATOCRIT</td> <td>40.3 %</td > <td>40.0-54.0</td> </tr><tr> <td>PLATELET COUNT</td> <td>225 k/cumm</td&gt ; <td>150-400</td> </tr> <tr> <th colspan="10">PROTHROMBIN TIME WITH INR - 11/04/13 11:34&lt ;/th> </tr> <tr> <td>INTERNATIONAL NORMAL RATIO</td> <td>1.1 </td> <td>0.9-1.1&lt ;/td> </tr> <tr> <td>PROTHROMBIN TIME</td> <td>12.6 sec</td> <td>9.3- 12.2</td> </tr> <tr> <th colspan=& quot;10">PARTIAL THROMBOPLASTIN TIME - 11/04/13 11:34</th> </tr> <tr> <td>PARTIAL THROMBOPLASTIN TIME< /td> <td>34 sec</td> <td>24-36</td&gt ; </tr> <tr> <th colspan="10"&gt ;TROPONIN I - 11/04/13 11:34</th> </tr> <tr> <td>TROPONIN I</td> <td>0.07 ng/mL</td> <td>< 0.07</td> </tr> <tr&gt ; <th colspan="10">PTT HEPARIN PROTOCOLS - 11/04/13 18: 10</th> </tr> <tr> <td>PARTIAL THROMBOPLASTIN TIME</td><td>94 sec</td> <td>24- 36</td> </tr> <tr> <th colspan=" 10">B-TYPE NATRIURETIC PEPTIDE - 11/04/13 18:10</th> </tr&gt ; <tr> <td>B-TYPE NATRIURETIC PEPTIDE</td> <td>1496 pg/mL</td> <td>< 100</td&gt ; </tr> <tr> <th colspan="10"&gt ;METABOLIC PANEL, BASIC - 11/04/13 18:10</th> </tr> & lt;tr> <td>POTASSIUM</td> <td>3.6mmol/L& lt;/td> <td>3.5-5.3</td> </tr> < tr> <td>EST GFR (MDRD)</td> <td>> 60 mL/min </td> <td>> 59</td> </tr> <tr> <td>ANION GAP</td> <td>5 mmol/L& lt;/td> <td>5-15</td> </tr> <tr> <td>EST CrCl (CG)</td> <td>> 60 mL/min& lt;/td> <td>> 59</td> </tr> & lt;tr> <td>GLUCOSE</td> <td>89 mg/dL</ td> <td>70-99</td> </tr> <tr> <td>CALCIUM</td> <td>8.9 mg/dL</td> <td>8.5-10.1</td> </tr> <tr> & lt;td>BLOOD UREA NITROGEN</td> <td>10 mg/dL</td> <td>7-20</td> </tr> <tr> <td>CREATININE</td> <td>1.1 mg/dL</td> <td>0.8-1.3</td> </tr> <tr> < td>SODIUM</td> <td>141 mmol/L</td> <td >135-148</td> </tr> <tr> <td> CHLORIDE</td> <td>109 mmol/L</td> <td> 98-110</td> </tr> <tr> <td> CARBON DIOXIDE</td> <td>27 mmol/L</td> < td>21-32</td> </tr> <tr> <th colspan="10">MRSA SURVEILLANCE SCREEN - 11/04/13 19:10</th> </tr> <tr> <td>Microbiology</td> <td> </td> <td /> </tr> <tr> <th colspan="10">PTT HEPARIN PROTOCOLS - 11/05/13 00:30</th> </tr> <tr> <td& gt;PARTIAL THROMBOPLASTIN TIME</td> <td>70 sec</td> <td>24-36</td> </tr> <tr> & lt;th colspan="10">B-TYPE NATRIURETIC PEPTIDE - 11/05/13 06:13</ th> </tr> <tr> <td>B-TYPE NATRIURETIC PEPTIDE</td> <td>1116 pg/mL</td> <td>< 100</td> </tr> <tr> <th colspan="10">CBC - 11/05/13 06:13</th> </tr& gt; <tr> <td>MEAN CELL HGB</td> < td>33.9 pg</td> <td>27.0-33.0</td> </tr& gt; <tr> <td>MEAN CELL HGB CONCENTRATION</td> <td>35.9 g/dL</td> <td>32.0-37.0</td> & lt;/tr> <tr> <td>MEAN CELL VOLUME</td> <td>94.2 fl</td> <td>80.0-100.0</td> </tr> <tr> <td>RED BLOOD CELL</td> <td>4.49 m/cumm</td> <td>4.00-6.00</td&gt ; </tr> <tr> <td>RED CELL DISTRIBUTION WIDTH</td> <td>12.6 %</td><td>11.0-15.6 </td> </tr> <tr> <td>WHITE BLOOD CELL</td> <td>6.7 k/cumm</td> <td>5.0- 10.0</td></tr> <tr> <td>HEMOGLOBIN</ td> <td>15.2 gm/dL</td> <td>14.0-18.0< /td> </tr> <tr> <td>HEMATOCRIT</ td> <td>42.3 %</td> <td>40.0-54.0 </td> </tr> <tr> <td>PLATELET COUNT</td> <td>237 k/cumm</td> <td>150-400< /td> </tr> <tr> <th colspan="10& quot;>PTT HEPARIN PROTOCOLS - 11/05/13 06:13</th> </tr> <tr> <td>PARTIAL THROMBOPLASTIN TIME</td> <td >68 sec</td> <td>24-36</td> </tr> <tr> <th colspan="10">METABOLIC PANEL, BASIC - 11/05/13 06:13</th> </tr> <tr> <td& gt;POTASSIUM</td> <td>3.7 mmol/L</td> <td >3.5-5.3</td> </tr> <tr> <td> EST GFR (MDRD)</td> <td>> 60 mL/min</td> <td>> 59</td> </tr> <tr> <td>ANION GAP</td> <td>10 mmol/L</td> <td>5-15</td> </tr> <tr> <td& gt;EST CrCl (CG)</td> <td>> 60 mL/min</td> <td>> 59</td> </tr> <tr> <td>GLUCOSE</td> <td>105 mg/dL</td> <td>70-99</td> </tr> <tr> &lt ;td>CALCIUM</td> <td>9.0 mg/dL</td> < td>8.5-10.1</td> </tr> <tr> <td& gt;BLOOD UREA NITROGEN</td> <td>13 mg/dL</td> <td>7-20</td> </tr> <tr> < td>CREATININE</td> <td>1.0 mg/dL</td> &lt ;td>0.8-1.3</td> </tr> <tr> <td>SODIUM </td> <td>138 mmol/L</td> <td>135-148& lt;/td> </tr> <tr> <td>CHLORIDE</ td> <td>106 mmol/L</td> <td>98-110</td > </tr> <tr> <td>CARBON DIOXIDE</td& gt; <td>22 mmol/L</td> <td>21-32</td> </tr> <tr> <th colspan="10"> TROPONIN I - 11/05/13 06:13</th> </tr> <tr> <td>TROPONIN I</td> <td>0.05 ng/mL</td> <td>< 0.07</td> </tr> <tr> <th colspan="10">CBC W/DIFF - 11/05/13 10:26</th> </tr> <tr> <td>BASOPHIL #</td> <td>0.0 k/cumm</td> <td>0.0-0.2</td> </tr> <tr> <td>BASOPHIL %</td& gt; <td>1 %</td> <td>0-1</td> </tr> <tr> <td>EOSINOPHIL #</td> <td>0.1 k/cumm</td> <td>0.1-0.5</td> </tr> <tr> <td>EOSINOPHIL %</td&gt ; <td>1 %</td> <td>2-4</td> </tr> <tr> <td>GRANULOCYTE #</td> <td>5.7 k/cumm</td> <td>2.0-9.0</td> </tr> <tr> <td>GRANULOCYTE %& lt;/td> <td>71 %</td> <td>50-75</td& gt; </tr> <tr> <td>LYMPHOCYTE #</td& gt; <td>1.5 k/cumm</td> <td>1.0-4.0</td> </tr> <tr> <td>LYMPHOCYTE %</td& gt; <td>19 %</td> <td>20-30</td& gt; </tr> <tr> <td>MEAN CELL HGB</td> <td>33.6 pg</td> <td>27.0-33.0</td> </tr> <tr> <td>MEAN CELL HGB CONCENTRATION</td> <td>35.8 g/dL</td> <td >32.0-37.0</td> </tr> <tr> <td&gt ;MEAN CELL VOLUME</td> <td>93.9 fl</td> < td>80.0-100.0</td> </tr> <tr> <td >MONOCYTE #</td> <td>0.7 k/cumm</td> < td>0.1-1.0</td> </tr> <tr> <td&gt ;MONOCYTE %</td> <td>9 %</td> <td>4-6</td> </tr> <tr> <td >RED BLOOD CELL</td> <td>4.40 m/cumm</td> <td>4.00-6.00</td> </tr> <tr> & lt;td>RED CELL DISTRIBUTION WIDTH</td> <td>12.6 &#37 ;</td> <td>11.0-15.6</td> </tr> & lt;tr> <td>WHITE BLOOD CELL</td> <td>8.0 k/cumm</td> <td>5.0-10.0</td> </tr> <tr> <td>HEMOGLOBIN</td> <td>14.8 gm/dL</td> <td>14.0-18.0</td> </tr> <tr> <td>HEMATOCRIT</td> <td>41.3 & amp;#37;</td> <td>40.0-54.0</td> </tr> <tr> <td>PLATELET COUNT</td> <td& gt;236 k/cumm</td> <td>150-400</td> </tr&gt ; <tr> <th colspan="10">PROTHROMBIN TIME WITH INR - 11/05/13 10:26</th> </tr> <tr> <td>INTERNATIONAL NORMAL RATIO</td> <td>1.1 </ td> <td>0.9-1.1</td> </tr> <tr&gt ; <td>PROTHROMBIN TIME</td> <td>12.6 sec< /td> <td>9.3-12.2</td> </tr> <tr& gt; <th colspan="10">METABOLIC PANEL, [facility] - 11/05/13 10:26</th> </tr> <tr> <td> POTASSIUM</td> <td>3.8 mmol/L</td> <td&gt ;3.5-5.3</td> </tr> <tr> <td>EST GFR (MDRD)</td> <td>> 60 mL/min</td> <td>> 59</td> </tr> <tr> <td >ANION GAP</td> <td>9 mmol/L</td> <td& gt;5-15</td> </tr> <tr> <td>EST CrCl (CG)</td> <td>> 60 mL/min</td> & lt;td>> 59</td> </tr> <tr> & lt;td>GLUCOSE</td> <td>103 mg/dL</td> &lt ;td>70-99</td> </tr> <tr> <td> CALCIUM</td> <td>8.8 mg/dL</td> <td> 8.5-10.1</td> </tr> <tr> <td> BLOOD UREA NITROGEN</td> <td>12 mg/dL</td> & lt;td>7-20</td> </tr> <tr> <td> CREATININE</td> <td>0.9 mg/dL</td> <td>0.8- 1.3</td> </tr> <tr> <td>SODIUM&lt ;/td> <td>138 mmol/L</td> <td>135-148< /td> </tr> <tr> <td>CHLORIDE</td& gt; <td>105 mmol/L</td> <td>98-110</td> </tr> <tr> <td>CARBON DIOXIDE</td& gt; <td>24 mmol/L</td> <td>21-32</td> </tr> <tr> <th colspan="10"> MAGNESIUM - 11/05/13 10:26</th> </tr> <tr> <td>MAGNESIUM</td> <td>2.0 mg/dL</td> <td>1.8-2.4</td> </tr> <tr> & lt;th colspan="10">CBC - 11/06/13 05:54</th> </tr& gt; <tr> <td>MEAN CELL HGB</td> < td>33.0 pg</td> <td>27.0-33.0</td> </tr& gt; <tr> <td>MEAN CELL HGB CONCENTRATION</td> <td>34.8 g/dL</td> <td>32.0-37.0</td&gt ; </tr> <tr> <td>MEAN CELL VOLUME</ td> <td>94.6 fl</td> <td>80.0-100.0</ td> </tr> <tr> <td>RED BLOOD CELL< /td> <td>4.43 m/cumm</td> <td>4.00-6.00& lt;/td> </tr> <tr> <td>RED CELL DISTRIBUTION WIDTH</td> <td>12.5 %</td> <td>11.0-15.6</td> </tr> <tr> <td>WHITE BLOOD CELL</td> <td>8.3 k/cumm</td&gt ; <td>5.0-10.0</td> </tr> <tr> <td>HEMOGLOBIN</td> <td>14.6 gm/dL</td&gt ; <td>14.0-18.0</td> </tr> <tr> <td>HEMATOCRIT</td> <td>41.9 %</ td> <td>40.0-54.0</td> </tr> <tr& gt; <td>PLATELET COUNT</td> <td>237 k/cumm& lt;/td> <td>150-400</td> </tr> < tr> <th colspan="10">PTT HEPARIN PROTOCOLS - 05:54</th> </tr> <tr> <td> PARTIAL THROMBOPLASTIN TIME</td> <td>34 sec</td> <td>24-36</td> </tr> <tr> & lt;th colspan="10">METABOLIC PANEL, BASIC - 11/06/13 05:54</th& gt; </tr> <tr> <td>POTASSIUM</td&gt ; <td>4.0 mmol/L</td> <td>3.5-5.3</td&gt ; </tr> <tr> <td>EST GFR (MDRD)</td& gt; <td>> 60 mL/min</td> <td>&gt ; 59</td></tr> <tr> <td>ANION GAP</td > <td>11 mmol/L</td> <td>5-15</td> </tr> <tr> <td>EST CrCl (CG)</td&gt ; <td>> 60 mL/min</td> <td>>59 </td> </tr> <tr> <td>GLUCOSE</ td> <td>98 mg/dL</td> <td>70-99</td&gt ; </tr> <tr> <td>CALCIUM</td> <td>8.6 mg/dL</td> <td>8.5-10.1</td> </tr> <tr> <td>BLOOD UREA NITROGEN</td& gt; <td>13 mg/dL</td> <td>7-20</td> </tr><tr> <td>CREATININE</td> & lt;td>1.1 mg/dL</td><td>0.8-1.3</td> </tr> <tr> <td>SODIUM</td> <td>140 mmol /L</td> <td>135-148</td> </tr> < tr> <td>CHLORIDE</td> <td>107 mmol/L</ td> <td>98-110</td> </tr> <tr> <td>CARBON DIOXIDE</td> <td>22 mmol/L</td&gt ; <td>21-32</td> </tr> <tr> <th colspan="10">LIPID PANEL - 11/06/13 05:54</th> </tr> <tr> <td>CHOLESTEROL/HDL RATIO< /td> <td>6.2 </td> <td> < 5.0</td&gt ; </tr> <tr> <td>LDL CHOLESTEROL</td > <td>131 mg/dL</td> <td>< 100</td&gt ; </tr> <tr> <td>VLDL CHOLESTEROL</ td> <td>30 mg/dL</td> <td>< 30< /td> </tr> <tr> <td>TRIGLYCERIDES&lt ;/td> <td>151 mg/dL</td> <td>< 150 </td> </tr> <tr> <td>CHOLESTEROL& lt;/td> <td>192 mg/dL</td> <td>< 200</td> </tr> <tr> <td>HDL CHOLESTEROL</td> <td>31 mg/dL</td> <td&gt ;> 39</td> </tr> </tbody> </table&gt ; </text> <entry> <organizer moodCode="EVN" classCode="BATTERY"> <templateId root=" [id number]" /> <id nullFlavor="NA&quot ; /> <code codeSystem="local" code="CBC" displayName="CBC" /> <statusCode code="completed&quot ; /> <component> <observation moodCode="EVN" classCode="OBS"> <templateId root=" [id number]" /><id nullFlavor="NA" /&gt ; <code codeSystem="local" code="MCH" displayName="MEAN CELL HGB" /> <statusCode code=" completed"/> <effectiveTime value="[id number]" / > <value unit="pg" xsi:type="PQ" value=" 33.7" /> <interpretationCode codeSystem="local" code="*" /> <referenceRange> < observationRange> <text>27.0-33.0</text> </observationRange> </referenceRange> </observation& gt; </component> <component> <observation moodCode="EVN" classCode="OBS"> <templateId root="[id number]" /> <id nullFlavor ="NA"/> <code codeSystem="local" code=" MCHC" displayName="MEAN CELL HGB CONCENTRATION" /> & lt;statusCode code="completed" /> <effectiveTime value= "[id number]" /> <value unit="g/dL" xsi:type ="PQ" value="36.0" /> <referenceRange> <observationRange> <text>32.0-37.0</text&gt ; </observationRange> </referenceRange> </ observation> </component> <component> < observation moodCode="EVN" classCode="OBS"> < templateId root="[id number]" /> < id nullFlavor="NA" /> <code codeSystem="local&quot ; code="MCV" displayName="MEAN CELLVOLUME" /> & lt;statusCode code="completed" /> <effectiveTime value= "[id number]" /> <value unit="fl" xsi:type=& quot;PQ" value="93.7" /> <referenceRange> <observationRange> <text>80.0-100.0</text> </observationRange> </referenceRange> </ observation> </component> <component> < observation moodCode="EVN" classCode="OBS"> < templateId root="[id number]" /> < id nullFlavor="NA" /><code codeSystem="local" code=& quot;RBC" displayName="RED BLOOD CELL" /> < statusCode code="completed" /> <effectiveTime value=& quot;[id number]" /> <value unit="m/cumm" xsi: type="PQ" value="4.30" /> <referenceRange&gt ; <observationRange> <text>4.00-6.00</ text> </observationRange> </referenceRange> </observation> </component> <component> <observation moodCode="EVN" classCode="OBS"> <templateId root="[id number]" /> <id nullFlavor="NA" /> <code codeSystem=" local" code="RDW" displayName="RED CELL DISTRIBUTION WIDTH& quot; /> <statusCode code="completed" /> & lt;effectiveTime value="[id number]" /> <value unit=& quot;%" xsi:type="PQ" value="12.5" /> <referenceRange> <observationRange> <text>11.0- 15.6</text> </observationRange> </ referenceRange> </observation> </component> < component> <observation moodCode="EVN" classCode=" OBS"> <templateId root="[id number]& quot; /> <id nullFlavor="NA" /> <code codeSystem="local" code="WBC" displayName="WHITE BLOOD CELL" /> <statusCode code="completed" /> &lt ;effectiveTime value="[id number]" /> <value unit=& quot;k/cumm" xsi:type="PQ" value="9.3" /> & lt;referenceRange> <observationRange> <text& gt;5.0-10.0</text> </observationRange> </ referenceRange> </observation> </component> < component> <observation moodCode="EVN" classCode=" OBS"> <templateId root="[id number]& quot; /> <id nullFlavor="NA" /> <code codeSystem="local" code="HGBT" displayName="HEMOGLOBIN& quot; /> <statusCode code="completed" /> & lt;effectiveTime value="[id number]" /> <value unit=" gm/dL" xsi:type="PQ" value="14.5" />< referenceRange> <observationRange> <text> 14.0-18.0</text> </observationRange> </ referenceRange> </observation> </component> < component> <observation moodCode="EVN" classCode=" OBS"> <templateId root="2.16.840.1.247541.10.20.22.4.2& quot; /> <id nullFlavor="NA" /> <code codeSystem="local" code="HCTT" displayName="HEMATOCRIT& quot; /> <statusCode code="completed" /> & lt;effectiveTime value="302772725203" /> <value unit=& quot;%" xsi:type="PQ" value="40.3" /> <referenceRange> <observationRange> < text>40.0-54.0</text> </observationRange> </ referenceRange> </observation> </component> < component> <observation moodCode="EVN" classCode=" OBS"> <templateId root="2.16.840.1.365037.10..22.4.2& quot; /><id nullFlavor="NA" /> <code codeSystem=& quot;local" code="PLT" displayName="PLATELET COUNT" /& gt; <statusCode code="completed" /> < effectiveTime value="207079440125" /> <value unit=&quot ;k/cumm" xsi:type="PQ" value="225" /> < referenceRange> <observationRange> <text>150- 400</text> </observationRange> </ referenceRange> </observation> </component> </ organizer> </entry> <entry> <organizer moodCode="EVN " classCode="BATTERY"> <templateId root=" 2.16.840.1.173571.10.20.22.4.1" /> <id nullFlavor="NA" / > <code codeSystem="local" code="PT" displayName= "PROTHROMBIN TIME WITH INR" /> <statusCode code=" completed" /> <component> <observation moodCode=& quot;EVN" classCode="OBS"> <templateId root=" 2.16.840.1.436265.10.20.22.4.2" /> <id nullFlavor="NA& quot; /> <code codeSystem="local" code="INRX&quot ; displayName="INTERNATIONAL NORMAL RATIO" /> < statusCode code="completed" /> <effectiveTime value=& quot;216060835617" /> <value unit="" xsi:type=& quot;PQ" value="1.1" /> <referenceRange> <observationRange> <text>0.9-1.1</text> </observationRange> </referenceRange> </ observation> </component> <component> < observation moodCode="EVN" classCode="OBS"> < templateId root="2.16.840.1.107107.10.20.22.4.2" /> < id nullFlavor="NA" /> <code codeSystem="local&quot ; code="PTPAT" displayName="PROTHROMBIN TIME" /> <statusCode code="completed" /> <effectiveTime value="958718971730" /> <value unit="sec" xsi :type="PQ" value="12.6" /> < interpretationCode codeSystem="local" code="*" /> <referenceRange> <observationRange> < text>9.3-12.2</text> </observationRange> </ referenceRange> </observation> </component> </ organizer> </entry> <entry> <organizer moodCode="EVN " classCode="BATTERY"> <templateId root=" 2.16.840.1.874831.10.20.22.4.1" /> <id nullFlavor="NA&quot ; /> <code codeSystem="local" code="PTT" displayName="PARTIAL THROMBOPLASTIN TIME" /> <statusCode code="completed" /> <component> <observation moodCode="EVN" classCode="OBS"> <templateId root=& quot;2.16.840.1.258634.10.20.22.4.2" /> <id nullFlavor=&quot ;NA" /> <code codeSystem="local" code="PTT& quot; displayName="PARTIAL THROMBOPLASTIN TIME" /> < statusCode code="completed" /> <effectiveTime value=& quot;341167420048" /> <value unit="sec" xsi:type=& quot;PQ" value="34" /> <referenceRange> <observationRange> <text>24-36</text> </observationRange> </referenceRange> </ observation> </component> </organizer> </entry> & lt;entry> <organizer moodCode="EVN" classCode="BATTERY& quot;> <templateId root="2.16.840.1.926719.10.20.22.4.1" /& gt; <id nullFlavor="NA" /> <code codeSystem=" local" code="TROPI" displayName="TROPONIN I" /> <statusCode code="completed" /> <component> <observation moodCode="EVN" classCode="OBS"> <templateId root="2.16.840.1.166481.10.20.22.4.2" /> & lt;id nullFlavor="NA" /> <code codeSystem="local& quot; code="TROPI" displayName="TROPONIN I" /> & lt;statusCode code="completed" /> <effectiveTime value= "080242063399" /> <value unit="ng/mL" xsi: type="PQ" value="0.07" /> < interpretationCode codeSystem="local" code="" /> <referenceRange> <observationRange> <text>& amp;lt; 0.07</text> </observationRange> </ referenceRange> </observation> </component> </ organizer> </entry> <entry> <organizer moodCode="EVN& quot; classCode="BATTERY"> <templateId root=" 2.16.840.1.005612.10.20.22.4.1" /> <id nullFlavor="NA&quot ; /> <code codeSystem="local" code="PTTH" displayName="PTT HEPARIN PROTOCOLS" /> <statusCode code=& quot;completed" /> <component> <observation moodCode=& quot;EVN" classCode="OBS"> <templateId root=" 2.16.840.1.691811.10.20.22.4.2" /> <id nullFlavor="NA& quot; /> <code codeSystem="local" code="PTT" displayName="PARTIAL THROMBOPLASTIN TIME" /> < statusCode code="completed" /> <effectiveTime value=& quot;450289772340" /> <value unit="sec" xsi:type=& quot;PQ" value="94" /> <interpretationCode codeSystem="local" code="*" /> < referenceRange> <observationRange><text>24-36</text > </observationRange> </referenceRange> </observation> </component> </organizer> </entry > <entry> <organizer moodCode="EVN" classCode=" BATTERY"> <templateId root="2.16.840.1.637871.10.20.22.4.1& quot; /> <id nullFlavor="NA" /> <code codeSystem=& quot;local" code="BNP" displayName="B-TYPE NATRIURETIC PEPTIDE" /> <statusCode code="completed" /> & lt;component> <observation moodCode="EVN" classCode=&quot ;OBS"> <templateId root="2.16.840.1.929557.10.20.22.4.2 " /> <id nullFlavor="NA" /> <code codeSystem="local" code="BNP" displayName="B-TYPE NATRIURETIC PEPTIDE" /> <statusCode code="completed& quot; /> <effectiveTimevalue="496810150801" /> <value unit="pg/mL" xsi:type="PQ" value="1496& quot; /> <interpretationCode codeSystem="local" code=& quot;*" /> <referenceRange> < observationRange> <text>< 100</text> </observationRange> </referenceRange> </ observation> </component> </organizer> </entry> & lt;entry> <organizer moodCode="EVN" classCode="BATTERY& quot;> <templateId root="2.16.840.1.533326.10.20.22.4.1" /& gt; <id nullFlavor="NA" /> <code codeSystem=" local" code="METAB" displayName="METABOLIC PANEL, BASIC&quot ; /> <statusCode code="completed" /> <component& gt; <observation moodCode="EVN" classCode="OBS"&gt ; <templateId root="2.16.840.1.187153.10.20.22.4.2" /> <id nullFlavor="NA" /> <code codeSystem=" local" code="K" displayName="POTASSIUM" /> & lt;statusCode code="completed" /> <effectiveTime value= "986800487348" /> <value unit="mmol/L" xsi: type="PQ" value="3.6" /> <referenceRange> <observationRange> <text>3.5-5.3</text& gt; </observationRange> </referenceRange> </ observation> </component> <component> < observation moodCode="EVN" classCode="OBS"> < templateId root="2.16.840.1.677229.10.20.22.4.2" /> < id nullFlavor="NA" /> <code codeSystem="local&quot ; code="eGFR" displayName="EST GFR (MDRD)" /> & lt;statusCode code="completed" /> <effectiveTime value= "749308152087" /> <value unit="mL/min" xsi: type="PQ" value="> 60"/> < referenceRange> <observationRange> <text> > 59</text> </observationRange> </ referenceRange> </observation> </component> < component> <observation moodCode="EVN" classCode=" OBS"> <templateId root="2.16.840.1.404793.10.20.22.4.2& quot; /> <id nullFlavor="NA" /> <code codeSystem="local" code="GAP" displayName="ANION GAP& quot; /> <statusCode code="completed" /> & lt;effectiveTime value="538051946161" /> <value unit=" mmol/L" xsi:type="PQ" value="5" /> < referenceRange> <observationRange> <text> 5-15</text> </observationRange> </referenceRange& gt; </observation> </component> <component> <observation moodCode="EVN" classCode="OBS"> <templateId root="2.16.840.1.836152.10.20.22.4.2" /> <id nullFlavor="NA" /> <code codeSystem="local& quot; code="eCrCl" displayName="EST CrCl (CG)" /> <statusCode code="completed" /> <effectiveTime value="059946137766" /> <value unit="mL/min" xsi:type="PQ" value="> 60" /> < referenceRange> <observationRange> <text> > 59</text> </observationRange> </ referenceRange> </observation> </component> < component> <observation moodCode="EVN" classCode=" OBS"> <templateId root="2.16.840.1.731105.10.20.22.4.2& quot; /> <id nullFlavor="NA" /> <code codeSystem= "local" code="GLU" displayName="GLUCOSE" /> <statusCode code="completed" /> < effectiveTime value="642894620039" /> <value unit=&quot ;mg/dL" xsi:type="PQ" value="89" /> < referenceRange> <observationRange> <text> 70-99</text> </observationRange> </ referenceRange> </observation> </component> < component> <observation moodCode="EVN" classCode=" OBS"> <templateId root="2.16.840.1.181603.10.20.22.4.2& quot; /> <id nullFlavor="NA" /> <code codeSystem="local" code="CA" displayName="CALCIUM&quot ; /> <statusCode code="completed" /> < effectiveTimevalue="912022909537" /> <value unit=" mg/dL" xsi:type="PQ" value="8.9" /> < referenceRange> <observationRange> <text>8.5- 10.1</text> </observationRange> </ referenceRange> </observation> </component> < component> <observation moodCode="EVN" classCode=" OBS"> <templateId root="2.16.840.1.454095.10.20.22.4.2& quot; /> <id nullFlavor="NA" /> <code codeSystem="local" code="BUN" displayName="BLOOD UREA NITROGEN"/> <statusCode code="completed" /> <effectiveTime value="238653861901" /> < value unit="mg/dL" xsi:type="PQ" value="10" /> <referenceRange> <observationRange> <text>7-20</text> </observationRange> & lt;/referenceRange> </observation> </component> < component> <observation moodCode="EVN" classCode=" OBS"> <templateId root="2.16.840.1.283898.10.20.22.4.2& quot; /> <id nullFlavor="NA" /> <code codeSystem="local" code="CREAT" displayName="CREATININE " /> <statusCode code="completed" /> & lt;effectiveTime value="228946390174" /> <value unit=& quot;mg/dL" xsi:type="PQ" value="1.1" /> < referenceRange> <observationRange> <text> 0.8-1.3</text> </observationRange> </ referenceRange> </observation> </component> < component> <observation moodCode="EVN"classCode="OBS "> <templateId root="2.16.840.1.391031.10..22.4.2& quot; /> <id nullFlavor="NA" /> <code codeSystem="local" code="NA" displayName="SODIUM" /> <statusCode code="completed" /> < effectiveTime value="469023350835" /> <value unit=&quot ;mmol/L" xsi:type="PQ" value="141" /> < referenceRange> <observationRange> <text> 135-148</text> </observationRange> </ referenceRange> </observation> </component> < component> <observation moodCode="EVN" classCode=" OBS"> <templateId root="2.16.840.1.838454.10..22.4.2& quot; /> <id nullFlavor="NA" /> <code codeSystem="local" code="CL" displayName="CHLORIDE&quot ; /> <statusCode code="completed" />< effectiveTime value="527070626623" /> <value unit=&quot ;mmol/L" xsi:type="PQ" value="109" /> < referenceRange> <observationRange> <text> 98-110</text> </observationRange> </ referenceRange> </observation> </component> < component> <observation moodCode="EVN" classCode=" OBS"> <templateId root="2.16.840.1.055962.10.20.22.4.2& quot; /> <id nullFlavor="NA"/> <code codeSystem="local" code="CO2" displayName="CARBON DIOXIDE" /> <statusCode code="completed" /> <effectiveTime value="904002901217" /> < value unit="mmol/L" xsi:type="PQ" value="27" /&gt ; <referenceRange> <observationRange> <text>21-32</text> </observationRange> &lt ;/referenceRange> </observation> </component> < /organizer> </entry> <entry> <organizer moodCode="EVN " classCode="BATTERY"> <templateId root=" 2.16.840.1.322913.10.20.22.4.1" /> <id nullFlavor="NA&quot ; /> <code codeSystem="local" code="MRSAS" displayName="MRSA SURVEILLANCE SCREEN" /> <statusCode code= "completed" /> <component> <observation moodCode="EVN" classCode="OBS"> <templateId root="2.16.840.1.175056.10.20.22.4.2" /> <id nullFlavor ="NA" /> <code codeSystem="local" code=" MB" displayName="Microbiology" /> <statusCode code ="completed" /> <effectiveTime value="198888621304 " /> <value xsi:type="ST" value="<pre>& lt;b>MRSA SURVEILLANCE SCREEN</b> See BelowMRSA SURVEILLANCE SCREEN(F) Magda Date/Time: 11/04/2013 19:10 Angi Date/Time : 11/06/2013 06:59SOURCE: ANTERIOR NARESSPEC DESC: [facility] [phone] [facility] , [place] [address]</pre>" /> <referenceRange> & lt;observationRange> <text /> </ observationRange> </referenceRange> </observation&gt ; </component> </organizer> </entry> <entry> <organizer moodCode="EVN" classCode="BATTERY"> <templateId root="2.16.840.1.815293.10.20.22.4.1" /> < id nullFlavor="NA" /> <code codeSystem="local" code="PTTH" displayName="PTT HEPARIN PROTOCOLS" /> & lt;statusCode code="completed" /> <component> &lt ;observation moodCode="EVN" classCode="OBS"> &lt ;templateId root="2.16.840.1.957921.10.20.22.4.2" /> < id nullFlavor="NA" /> <code codeSystem="local" code= "PTT" displayName="PARTIAL THROMBOPLASTIN TIME" /> <statusCode code="completed" /> <effectiveTime value="393200533032" /> <value unit="sec" xsi :type="PQ" value="70" /> <interpretationCode codeSystem="local" code="*" /> < referenceRange> <observationRange> <text> 24-36</text> </observationRange> </ referenceRange> </observation> </component> </ organizer> </entry> <entry> <organizer moodCode="EVN& quot; classCode="BATTERY"> <templateId root=" 2.16.840.1.641008.10.20.22.4.1" /> <id nullFlavor="NA&quot ; /> <code codeSystem="local" code="BNP" displayName="B-TYPE NATRIURETIC PEPTIDE" /> <statusCode code="completed" /> <component> <observation moodCode="EVN" classCode="OBS"> <templateId root="2.16.840.1.250109.10.20.22.4.2" /> <id nullFlavor ="NA" /> <code codeSystem="local" code=" BNP" displayName="B-TYPE NATRIURETIC PEPTIDE" /> < statusCode code="completed" /> <effectiveTime value=& quot;777454184061" /> <value unit="pg/mL" xsi:type ="PQ" value="1116" /> <interpretationCode codeSystem="local" code="*" /> < referenceRange> <observationRange> <text> < 100</text> </observationRange> </ referenceRange> </observation> </component> </ organizer> </entry> <entry> <organizer moodCode="EVN " classCode="BATTERY"> <templateId root=" 2.16.840.1.689301.10.20.22.4.1" /> <id nullFlavor="NA&quot ; /> <code codeSystem="local" code="CBC" displayName="CBC" /> <statusCode code="completed&quot ; /> <component> <observation moodCode="EVN" classCode="OBS"> <templateId root=" 2.16.840.1.500283.10.20.22.4.2" /> <id nullFlavor="NA& quot; /> <code codeSystem="local" code="MCH" displayName="MEAN CELL HGB" /> <statusCode code=" completed" /> <effectiveTime value="919676757841" /> <value unit="pg" xsi:type="PQ" value=" 33.9" /> <interpretationCode codeSystem="local" code="*" /> <referenceRange> < observationRange> <text>27.0-33.0</text></ observationRange> </referenceRange> </observation&gt ; </component> <component> <observation moodCode ="EVN" classCode="OBS"> <templateId root=& quot;2.16.840.1.854276.10.20.22.4.2" /> <id nullFlavor=&quot ;NA" /> <code codeSystem="local" code="MCHC& quot; displayName="MEAN CELL HGB CONCENTRATION" /> < statusCode code="completed" /> <effectiveTime value=& quot;482603490732" /> <value unit="g/dL" xsi:type= "PQ" value="35.9" /> <referenceRange> <observationRange> <text>32.0-37.0</text&gt ; </observationRange> </referenceRange> & lt;/observation> </component> <component> < observation moodCode="EVN" classCode="OBS"> < templateId root="2.16.840.1.504234.10.20.22.4.2" /> < id nullFlavor="NA" /> <code codeSystem="local&quot ; code="MCV" displayName="MEAN CELL VOLUME" /> & lt;statusCode code="completed" /> <effectiveTime value= "493660368389" /> <value unit="fl" xsi:type=& quot;PQ" value="94.2" /> <referenceRange> < observationRange> <text>80.0-100.0</text> </observationRange> </referenceRange> </ observation> </component><component> <observation moodCode="EVN" classCode="OBS"> <templateId root=& quot;2.16.840.1.876508.10.20.22.4.2" /> <id nullFlavor=&quot ;NA" /> <code codeSystem="local" code="RBC& quot; displayName="RED BLOOD CELL" /> <statusCode code= "completed" /> <effectiveTime value="067453850430& quot; /> <value unit="m/cumm" xsi:type="PQ" value="4.49" /> <referenceRange> < observationRange> <text>4.00-6.00</text> </observationRange> </referenceRange> </observation& gt; </component> <component> <observation moodCode="EVN" classCode="OBS"> <templateId root="2.16.840.1.798470.10.20.22.4.2" /> <id nullFlavor ="NA" /> <code codeSystem="local" code=" RDW" displayName="RED CELL DISTRIBUTION WIDTH" /> &lt ;statusCode code="completed" /> <effectiveTime value=& quot;253255009454" /> <value unit="%" xsi: type="PQ" value="12.6" /> <referenceRange&gt ; <observationRange> <text>11.0-15.6</ text> </observationRange> </referenceRange> </observation> </component> <component> <observation moodCode="EVN" classCode="OBS"> <templateId root="2.16.840.1.332075.10.20.22.4.2" /> <id nullFlavor="NA" /> <code codeSystem=" local" code="WBC" displayName="WHITE BLOOD CELL" /> <statusCode code="completed" /> < effectiveTime value="511979649272" /> <value unit=&quot ;k/cumm" xsi:type="PQ" value="6.7" /> < referenceRange> <observationRange> <text> 5.0-10.0</text> </observationRange> </ referenceRange> </observation> </component> < component> <observation moodCode="EVN" classCode="OBS&quot ;> <templateId root="2.16.840.1.212433.10.20.22.4.2" /& gt; <id nullFlavor="NA" /> <code codeSystem=& quot;local" code="HGBT" displayName="HEMOGLOBIN"/> <statusCode code="completed" /> < effectiveTime value="931261580617" /> <value unit=&quot ;gm/dL" xsi:type="PQ" value="15.2" /> < referenceRange> <observationRange><text>14.0-18.0</ text> </observationRange> </referenceRange> </observation> </component> <component> <observation moodCode="EVN" classCode="OBS"> <templateId root="2.16.840.1.602908.10.20.22.4.2" /> <id nullFlavor="NA" /> <code codeSystem=" local" code="HCTT" displayName="HEMATOCRIT" /> <statusCode code="completed" /> <effectiveTime value="682072357733" /> <value unit="%& quot; xsi:type="PQ" value="42.3" /> < referenceRange> <observationRange> <text> 40.0-54.0</text> </observationRange> </ referenceRange> </observation> </component> < component> <observation moodCode="EVN" classCode=" OBS"> <templateId root="2.16.840.1.920472.10.20.22.4.2& quot; /> <id nullFlavor="NA" /> <code codeSystem="local" code="PLT" displayName="PLATELET COUNT" /> <statusCode code="completed" /> <effectiveTime value="871298458746" /> <value unit="k/cumm" xsi:type="PQ" value="237" /> &lt ;referenceRange> <observationRange> <text&gt ;150-400</text> </observationRange> </ referenceRange> </observation> </component> </ organizer> </entry> <entry> <organizer moodCode="EVN " classCode="BATTERY"> <templateId root=" 2.16.840.1.198957.10.20.22.4.1" /> <id nullFlavor="NA&quot ; /> <code codeSystem="local" code="PTTH" displayName="PTT HEPARIN PROTOCOLS" /> <statusCode code=& quot;completed" /> <component> <observation moodCode="EVN" classCode="OBS"> <templateId root="2.16.840.1.641311.10.20.22.4.2" /> <id nullFlavor ="NA" /> <code codeSystem="local" code=" PTT" displayName="PARTIAL THROMBOPLASTIN TIME" /> &lt ;statusCode code="completed" /> <effectiveTime value=& quot;555810138616" /> <value unit="sec" xsi:type=& quot;PQ" value="68" /> <interpretationCode codeSystem="local" code="*" /> < referenceRange> <observationRange> <text> 24-36</text> </observationRange> </referenceRange& gt; </observation> </component> </organizer> & lt;/entry> <entry> <organizer moodCode="EVN" classCode ="BATTERY"> <templateId root=" 2.16.840.1.296192.10.20.22.4.1" /> <id nullFlavor="NA&quot ; /> <code codeSystem="local" code="METAB" displayName="METABOLIC PANEL, BASIC" /> <statusCode code=& quot;completed" /> <component> <observation moodCode="EVN" classCode="OBS"> <templateId root="2.16.840.1.216191.10.20.22.4.2" /> <id nullFlavor ="NA" /> <code codeSystem="local" code=" K" displayName="POTASSIUM" /> <statusCode code=& quot;completed" /> <effectiveTime value="203800124409& quot; /> <value unit="mmol/L" xsi:type="PQ" value="3.7" /> <referenceRange> < observationRange> <text>3.5-5.3</text> & lt;/observationRange> </referenceRange> </ observation> </component> <component> < observation moodCode="EVN" classCode="OBS"> < templateId root="2.16.840.1.562148.10.20.22.4.2" /> < id nullFlavor="NA" /> <code codeSystem="local&quot ; code="eGFR" displayName="EST GFR (MDRD)" /> & lt;statusCode code="completed" /> <effectiveTime value= "786814872378" /> <value unit="mL/min" xsi: type="PQ" value="> 60" /> < referenceRange> <observationRange> <text>& amp;gt; 59</text> </observationRange> </ referenceRange> </observation> </component> < component> <observation moodCode="EVN" classCode=" OBS"> <templateId root="2.16.840.1.149199.10..22.4.2& quot; /> <id nullFlavor="NA" /> <code codeSystem="local" code="GAP" displayName="ANION GAP& quot; /> <statusCode code="completed" /> < effectiveTime value="685184498420" /> <value unit=&quot ;mmol/L" xsi:type="PQ" value="10" /> < referenceRange> <observationRange> <text> 5-15</text> </observationRange> </referenceRange& gt; </observation> </component> <component> <observation moodCode="EVN" classCode="OBS"> <templateId root="2.16.840.1.445957.10..22.4.2" /> <id nullFlavor="NA" /> <code codeSystem=&quot ;local" code="eCrCl" displayName="EST CrCl (CG)" /> <statusCode code="completed" /> < effectiveTime value="529944165704" /> <value unit=&quot ;mL/min" xsi:type="PQ" value="> 60" /> <referenceRange> <observationRange> < text>> 59</text> </observationRange> </ referenceRange> </observation> </component> < component> <observation moodCode="EVN" classCode="OBS "> <templateId root="2.16.840.1.329226.10.20.22.4.2& quot; /> <id nullFlavor="NA" /> <code codeSystem="local" code="GLU" displayName="GLUCOSE&quot ; /> <statusCode code="completed" /> < effectiveTime value="320262042507" /> <value unit=&quot ;mg/dL" xsi:type="PQ" value="105" /> < interpretationCode codeSystem="local" code="*" /> <referenceRange> <observationRange> < text>70-99</text> </observationRange> </ referenceRange> </observation> </component> < component> <observation moodCode="EVN" classCode=" OBS"> <templateId root="2.16.840.1.762291.10.20.22.4.2& quot; /> <id nullFlavor="NA" /> <code codeSystem="local" code="CA" displayName="CALCIUM&quot ; /> <statusCode code="completed" /> < effectiveTime value="555514331019" /> <value unit=&quot ;mg/dL" xsi:type="PQ" value="9.0" /> < referenceRange> <observationRange> <text> 8.5-10.1</text> </observationRange> </referenceRange& gt; </observation> </component> <component> <observation moodCode="EVN" classCode="OBS"> <templateId root="2.16.840.1.896358.10.20.22.4.2" /> <id nullFlavor="NA" /> <code codeSystem=&quot ;local" code="BUN" displayName="BLOOD UREA NITROGEN" /& gt; <statusCode code="completed" /> < effectiveTime value="408660924755" /> <value unit=&quot ;mg/dL" xsi:type="PQ" value="13" /> < referenceRange> <observationRange> <text>7- 20</text> </observationRange> </ referenceRange> </observation> </component> < component> <observation moodCode="EVN" classCode=" OBS"> <templateId root="2.16.840.1.807704.10.20.22.4.2&quot ; /> <id nullFlavor="NA" /> <code codeSystem="local" code="CREAT" displayName="CREATININE " /> <statusCode code="completed" /> & lt;effectiveTime value="863450612708" /> <value unit=& quot;mg/dL" xsi:type="PQ" value="1.0" /> & lt;referenceRange> <observationRange> <text& gt;0.8-1.3</text> </observationRange> </ referenceRange> </observation> </component> < component> <observation moodCode="EVN" classCode=" OBS"> <templateId root="2.16.840.1.473258.10.20.22.4.2& quot; /> <id nullFlavor="NA" /> <code codeSystem="local" code="NA" displayName="SODIUM"/ > <statusCode code="completed" /> < effectiveTime value="868617171065" /> <value unit=&quot ;mmol/L" xsi:type="PQ" value="138" /> < referenceRange> <observationRange><text>135-148</ text> </observationRange> </referenceRange> </observation> </component> <component> <observation moodCode="EVN" classCode="OBS"> <templateId root="[id number]" /> <id nullFlavor="NA" /> <code codeSystem=" local" code="CL" displayName="CHLORIDE" /> <statusCode code="completed" /> <effectiveTime value ="[id number]" /> <value unit="mmol/L" xsi: type="PQ" value="106" /> <referenceRange> <observationRange> <text>98-110</text> </observationRange> </referenceRange> < /observation> </component> <component> < observation moodCode="EVN"classCode="OBS"> < templateId root="[id number]" /> < id nullFlavor="NA" /> <code codeSystem="local&quot ; code="CO2" displayName="CARBON DIOXIDE" /> &lt ;statusCode code="completed" /> <effectiveTime value=& quot;[id number]" /> <value unit="mmol/L" xsi: type="PQ" value="22" /> <referenceRange> <observationRange> <text>21-32</text> </observationRange> </referenceRange> </ observation> </component> </organizer> </entry> & lt;entry> <organizer moodCode="EVN" classCode="BATTERY& quot;> <templateId root="2.16.840.1.051191.10.20.22.4.1" /& gt; <id nullFlavor="NA" /> <code codeSystem=" local" code="TROPI" displayName="TROPONIN I" /> <statusCode code="completed" /> <component> <observation moodCode="EVN" classCode="OBS"> <templateId root="2.16.840.1.890935.10..22.4.2" /><id nullFlavor="NA" /> <code codeSystem="local" code="TROPI" displayName="TROPONIN I" /> < statusCode code="completed" /> <effectiveTime value=& quot;355308545255" /> <value unit="ng/mL" xsi:type ="PQ" value="0.05" /> <referenceRange> <observationRange> <text>< 0.07</text> </observationRange> </referenceRange> &lt ;/observation> </component> </organizer> </entry> <entry> <organizer moodCode="EVN" classCode=" BATTERY"> <templateId root="2.16.840.1.185915.10.20.22.4.1& quot; /> <id nullFlavor="NA" /> <code codeSystem ="local" code="CBCD" displayName="CBC W/DIFF" /&gt ; <statusCode code="completed" /> <component> <observation moodCode="EVN" classCode="OBS"> <templateId root="2.16.840.1.105452.10..22.4.2" /> <id nullFlavor="NA" /> <code codeSystem=" local" code="BA#" displayName="BASOPHIL #" /> <statusCode code="completed" /> <effectiveTime value=& quot;304415557058" /> <value unit="k/cumm" xsi: type="PQ" value="0.0" /> <referenceRange> <observationRange> <text>0.0-0.2</text& gt; </observationRange> </referenceRange> </observation> </component> <component> < observation moodCode="EVN" classCode="OBS"> < templateId root="2.16.840.1.190034.10.20.22.4.2" /> < id nullFlavor="NA" /> <code codeSystem="local&quot ; code="BA%" displayName="BASOPHIL %" /> <statusCode code="completed" /> < effectiveTime value="889287284480" /> <value unit=&quot ;%" xsi:type="PQ" value="1" /> < referenceRange> <observationRange> <text> 0-1</text> </observationRange> </referenceRange> </observation> </component> <component> <observation moodCode="EVN" classCode="OBS"> <templateId root="2.16.840.1.095503.10.20.22.4.2" /> <id nullFlavor="NA" /> <code codeSystem=" local" code="EO#" displayName="EOSINOPHIL #" /> <statusCode code="completed" /> < effectiveTime value="077922227125" /> <value unit=&quot ;k/cumm" xsi:type="PQ" value="0.1" /> < referenceRange> <observationRange> <text>0.1-0.5& lt;/text> </observationRange> </referenceRange& gt; </observation> </component> <component> <observation moodCode="EVN" classCode="OBS"> <templateId root="2.16.840.1.347675.10..22.4.2" /> <id nullFlavor="NA" /> <code codeSystem=&quot ;local" code="EO%" displayName="EOSINOPHIL % " /> <statusCode code="completed" /> & lt;effectiveTime value="808901105478" /> <value unit=& quot;%" xsi:type="PQ" value="1" /> <interpretationCode codeSystem="local" code="*" /> <referenceRange> <observationRange> & lt;text>2-4</text> </observationRange> </ referenceRange> </observation> </component> < component> <observation moodCode="EVN" classCode=" OBS"> <templateId root="2.16.840.1.678538.10..22.4.2& quot; /> <id nullFlavor="NA" /> <code codeSystem="local" code="GR#" displayName="GRANULOCYTE #" /> <statusCode code="completed" /> <effectiveTime value="500403474488" /> <value unit="k /cumm" xsi:type="PQ" value="5.7" /> < referenceRange> <observationRange> <text> 2.0-9.0</text> </observationRange> </ referenceRange> </observation> </component> < component> <observation moodCode="EVN" classCode=" OBS"> <templateId root="2.16.840.1.529725.10.20.22.4.2& quot; /> <id nullFlavor="NA" /> <code codeSystem="local" code="GR%" displayName=" GRANULOCYTE %" /> <statusCode code="completed& quot; /> <effectiveTime value="233312579912" /> & lt;value unit="%" xsi:type="PQ" value="71&quot ; /> <referenceRange> <observationRange> <text>50-75</text> </observationRange> </referenceRange> </observation> </component&gt ; <component> <observation moodCode="EVN" classCode="OBS"> <templateId root=" 2.16.840.1.146898.10.20.22.4.2" /> <id nullFlavor="NA& quot; /> <code codeSystem="local" code="LY#" displayName="LYMPHOCYTE #" /> <statusCode code=" completed" /> <effectiveTime value="296166509554" /> <value unit="k/cumm" xsi:type="PQ" value=& quot;1.5" /> <referenceRange> < observationRange> <text>1.0-4.0</text> & lt;/observationRange> </referenceRange> </ observation> </component> <component> < observation moodCode="EVN" classCode="OBS"> < templateId root="2.16.840.1.120991.10.20.22.4.2" /> < id nullFlavor="NA" /> <code codeSystem="local&quot ; code="LY%" displayName="LYMPHOCYTE %" /&gt ; <statusCode code="completed" /> < effectiveTime value="882072009237" /> <value unit=&quot ;%" xsi:type="PQ" value="19" /> &lt ;interpretationCode codeSystem="local" code="*" /> <referenceRange> <observationRange> < text>20-30</text> </observationRange> </ referenceRange> </observation> </component> < component> <observation moodCode="EVN" classCode=" OBS"> <templateId root="2.16.840.1.638237.10.20.22.4.2& quot; /> <id nullFlavor="NA" /> <code codeSystem="local" code="MCH" displayName="MEAN CELL HGB" /> <statusCode code="completed" /> <effectiveTime value="708045905788" /> <value unit="pg" xsi:type="PQ" value="33.6" /> <interpretationCode codeSystem="local" code="*" /> <referenceRange> <observationRange> <text>27.0-33.0</text> </observationRange> </referenceRange> </observation> </component&gt ; <component> <observationmoodCode="EVN" classCode="OBS"> <templateId root=" 2.16.840.1.353059.10.20.22.4.2" /> <id nullFlavor="NA& quot; /> <code codeSystem="local" code="[facility]&quot ; displayName="MEAN CELL HGB CONCENTRATION" /> < statusCode code="completed" /> <effectiveTime value=& quot;686556142218" /> <value unit="g/dL" xsi:type= "PQ" value="35.8" /> <referenceRange> <observationRange> <text>32.0-37.0</text&gt ; </observationRange> </referenceRange> & lt;/observation> </component> <component> < observation moodCode="EVN" classCode="OBS"> < templateId root="2.16.840.1.585367.10.20.22.4.2" /> < id nullFlavor="NA" /> <code codeSystem="local&quot ; code="MCV" displayName="MEAN CELL VOLUME" /> < statusCode code="completed" /> <effectiveTime value=& quot;550273326207" /> <value unit="fl" xsi:type=& quot;PQ" value="93.9" /> <referenceRange> <observationRange> <text>80.0-100.0</text&gt ; </observationRange> </referenceRange> & lt;/observation> </component> <component> < observation moodCode="EVN" classCode="OBS"> < templateId root="2.16.840.1.547417.10.20.22.4.2" /> < id nullFlavor="NA" /> <code codeSystem="local&quot ; code="MO#" displayName="MONOCYTE #" /> < statusCode code="completed" /> <effectiveTime value=& quot;350788732274" /> <value unit="k/cumm" xsi:type=" PQ" value="0.7" /> <referenceRange> <observationRange> <text>0.1-1.0</text> </observationRange> </referenceRange> </ observation> </component> <component> < observation moodCode="EVN" classCode="OBS"> < templateId root="2.16.840.1.164571.10.20.22.4.2" /> <id nullFlavor="NA" /> <code codeSystem="local" code="MO%" displayName="MONOCYTE %" /> <statusCode code="completed" /> < effectiveTime value="684252765847" /> <value unit=&quot ;%" xsi:type="PQ" value="9" /> < interpretationCode codeSystem="local" code="*" /> <referenceRange> <observationRange> < text>4-6</text> </observationRange> </ referenceRange> </observation> </component> < component> <observation moodCode="EVN" classCode=" OBS"> <templateId root="2.16.840.1.748668.10.20.22.4.2& quot; /> <id nullFlavor="NA" /> <code codeSystem="local" code="RBC" displayName="RED BLOOD CELL" /> <statusCode code="completed" />< effectiveTime value="538485195026" /> <value unit=&quot ;m/cumm" xsi:type="PQ" value="4.40" /> < referenceRange> <observationRange> <text> 4.00-6.00</text> </observationRange> </ referenceRange> </observation> </component> < component> <observation moodCode="EVN" classCode=" OBS"> <templateId root="2.16.840.1.730738.10.20.22.4.2& quot; /> <id nullFlavor="NA" /> <code codeSystem="local" code="RDW" displayName="RED CELL DISTRIBUTION WIDTH" /> <statusCode code="completed&quot ; /><effectiveTime value="497422123274" /> < value unit="%"xsi:type="PQ" value="12.6" / > <referenceRange> <observationRange> <text>11.0-15.6</text> </observationRange> </referenceRange> </observation> </component > <component> <observation moodCode="EVN" classCode="OBS"> <templateId root=" 2.16.840.1.672743.10..22.4.2" /> <id nullFlavor="NA& quot; /> <code codeSystem="local" code="WBC" displayName="WHITE BLOOD CELL" /> <statusCode code=& quot;completed" /> <effectiveTime value="504644633140& quot; /> <value unit="k/cumm" xsi:type="PQ" value="8.0" /> <referenceRange> < observationRange> <text>5.0-10.0</text> & lt;/observationRange></referenceRange> </observation> </component> <component> <observation moodCode=" EVN" classCode="OBS"> <templateId root=" 2.16.840.1.116339.10..22.4.2" /> <id nullFlavor="NA& quot; /> <code codeSystem="local" code="HGBT" displayName="HEMOGLOBIN" /> <statusCode code=" completed" /> <effectiveTime value="643728193491" /> <value unit="gm/dL" xsi:type="PQ" value=& quot;14.8" /> <referenceRange> < observationRange> <text>14.0-18.0</text> </ observationRange> </referenceRange> </observation&gt ; </component> <component> <observation moodCode ="EVN" classCode="OBS"> <templateId root=& quot;2.16.840.1.527436.10.20.22.4.2" /> <id nullFlavor=&quot ;NA" /> <code codeSystem="local" code="HCTT& quot; displayName="HEMATOCRIT" /> <statusCode code=" completed" /> <effectiveTime value="253505446002" /> <value unit="%" xsi:type="PQ" value="41.3" /> <referenceRange> < observationRange> <text>40.0-54.0</text> </observationRange> </referenceRange> </observation> </component> <component> <observation moodCode= "EVN" classCode="OBS"> <templateId root=&quot ;2.16.840.1.584035.10.20.22.4.2" /> <id nullFlavor="NA& quot; /> <code codeSystem="local" code="PLT" displayName="PLATELET COUNT" /> <statusCode code=" completed" /> <effectiveTime value="824026917030" /> <value unit="k/cumm" xsi:type="PQ" value=& quot;236" /> <referenceRange> <observationRange& gt; <text>150-400</text> </ observationRange> </referenceRange> </observation&gt ; </component> </organizer> </entry> <entry> <organizer moodCode="EVN" classCode="BATTERY"> <templateId root="2.16.840.1.017852.10.20.22.4.1" /> < id nullFlavor="NA" /> <code codeSystem="local" code="PT" displayName="PROTHROMBIN TIME WITH INR" /> <statusCode code="completed" /> <component> <observation moodCode="EVN" classCode="OBS"> <templateId root="2.16.840.1.322438.10.20.22.4.2" /> & lt;id nullFlavor="NA" /> <code codeSystem="local& quot; code="INRX" displayName="INTERNATIONAL NORMAL RATIO" / > <statusCode code="completed" /> < effectiveTime value="029170913752" /> <value unit=&quot ;" xsi:type="PQ" value="1.1" /> < referenceRange> <observationRange> <text> 0.9-1.1</text> </observationRange> </ referenceRange> </observation> </component> < component> <observation moodCode="EVN" classCode=" OBS"> <templateId root="2.16.840.1.063371.10.20.22.4.2& quot; /> <id nullFlavor="NA" /> <code codeSystem="local" code="PTPAT" displayName=" PROTHROMBIN TIME" /> <statusCodecode="completed" / > <effectiveTime value="835466801128" /> < value unit="sec" xsi:type="PQ" value="12.6" /> <interpretationCode codeSystem="local" code="*&quot ; /> <referenceRange> <observationRange> <text>9.3-12.2</text> </observationRange&gt ; </referenceRange> </observation> </ component> </organizer> </entry> <entry> < organizer moodCode="EVN" classCode="BATTERY"> < templateId root="2.16.840.1.862839.10.20.22.4.1" /> <id nullFlavor="NA" /> <code codeSystem="local" code= "METAB" displayName="METABOLIC PANEL, BASIC" /> < statusCode code="completed" /> <component> < observation moodCode="EVN" classCode="OBS"> < templateId root="2.16.840.1.438263.10.20.22.4.2" /> <id nullFlavor="NA" /> <code codeSystem="local" code="K" displayName="POTASSIUM" /> < statusCode code="completed" /> <effectiveTime value=& quot;413751744633" /> <value unit="mmol/L" xsi: type="PQ" value="3.8" /> <referenceRange> <observationRange> <text>3.5-5.3</text> </observationRange> </referenceRange> & lt;/observation> </component> <component> < observation moodCode="EVN" classCode="OBS"> < templateId root="2.16.840.1.035670.10.20.22.4.2" /> < id nullFlavor="NA" /> <code codeSystem="local&quot ; code="eGFR" displayName="EST GFR (MDRD)" /> & lt;statusCode code="completed" /> <effectiveTime value=" 817417414347" /> <value unit="mL/min"xsi:type=& quot;PQ" value="> 60" /> <referenceRange&gt ; <observationRange> <text>> 59</text> </observationRange> </referenceRange> < /observation> </component> <component> < observation moodCode="EVN" classCode="OBS"> < templateId root="2.16.840.1.203279.10.20.22.4.2" /> < id nullFlavor="NA" /> <code codeSystem="local&quot ; code="GAP" displayName="ANION GAP" /> < statusCode code="completed" /> <effectiveTime value=& quot;053503034111" /> <value unit="mmol/L" xsi: type="PQ" value="9" /> <referenceRange> <observationRange> <text>5-15</text> </observationRange> </referenceRange> < /observation> </component> <component> <observation moodCode="EVN" classCode="OBS"> <templateId root="2.16.840.1.909678.10.20.22.4.2" /> <id nullFlavor ="NA" /> <code codeSystem="local" code="eCrCl " displayName="EST CrCl (CG)" /> <statusCode code= "completed" /> <effectiveTime value="501008326621& quot; /> <value unit="mL/min" xsi:type="PQ" value="> 60" /> <referenceRange> & lt;observationRange> <text>> 59</text> </observationRange> </referenceRange> </ observation> </component> <component> < observation moodCode="EVN" classCode="OBS"> < templateId root="2..840.1.888740.10.20.22.4.2" /> < id nullFlavor="NA" /> <code codeSystem="local" code=& quot;GLU" displayName="GLUCOSE" /> <statusCode code=& quot;completed" /> <effectiveTime value="130115320807& quot; /> <value unit="mg/dL" xsi:type="PQ" value="103" /> <interpretationCode codeSystem=" local" code="*" /> <referenceRange> < observationRange> <text>70-99</text> < /observationRange> </referenceRange> </observation& gt; </component> <component> <observation moodCode="EVN" classCode="OBS"> <templateId root="2.16.840.1.998951.10.20.22.4.2" /> <id nullFlavor ="NA" /> <code codeSystem="local" code=" CA" displayName="CALCIUM" /> <statusCode code=& quot;completed" /> <effectiveTime value="472852513547& quot; /> <value unit="mg/dL" xsi:type="PQ" value="8.8" /> <referenceRange> < observationRange> <text>8.5-10.1</text> & lt;/observationRange> </referenceRange> </ observation> </component> <component> < observation moodCode="EVN" classCode="OBS"> < templateId root="2.16.840.1.106352.10.20.22.4.2" /> < id nullFlavor="NA" /> <code codeSystem="local&quot ; code="BUN" displayName="BLOOD UREA NITROGEN" /> <statusCode code="completed" /> <effectiveTime value="232138821640" /> <value unit="mg/dL" xsi:type="PQ" value="12" /> <referenceRange& gt;<observationRange> <text>7-20</text> </observationRange> </referenceRange> </ observation> </component> <component> < observation moodCode="EVN" classCode="OBS"> < templateId root="2.16.840.1.549931.10..22.4.2" /> < id nullFlavor="NA" /> <code codeSystem="local&quot ; code="CREAT" displayName="CREATININE" /> < statusCode code="completed" /> <effectiveTime value=& quot;495382360270" /> <value unit="mg/dL" xsi:type ="PQ" value="0.9" /> <referenceRange> <observationRange> <text>0.8-1.3</text> </observationRange> </referenceRange> &lt ;/observation> </component> <component> < observation moodCode="EVN" classCode="OBS"> < templateId root="2.16.840.1.609666.10.20.22.4.2" /> < id nullFlavor="NA" /> <code codeSystem="local" code= "NA" displayName="SODIUM" /> <statusCode code=& quot;completed" /> <effectiveTime value="463737743320& quot; /> <value unit="mmol/L" xsi:type="PQ" value="138" /> <referenceRange> < observationRange> <text>135-148</text> & lt;/observationRange> </referenceRange></observation> </component> <component> <observation moodCode=& quot;EVN" classCode="OBS"> <templateId root=" 2.16.840.1.706385.10.20.22.4.2" /> <id nullFlavor="NA& quot; /> <code codeSystem="local" code="CL" displayName="CHLORIDE" /> <statusCode code=" completed" /> <effectiveTime value="373557007734" /> <value unit="mmol/L" xsi:type="PQ" value=" 105" /> <referenceRange> <observationRange& gt; <text>98-110</text> </observationRange > </referenceRange> </observation> </ component> <component> <observation moodCode="EVN& quot; classCode="OBS"> <templateId root=" 2.16.840.1.339409.10..22.4.2" /> <id nullFlavor="NA&quot ; /> <code codeSystem="local" code="CO2" displayName="CARBON DIOXIDE" /> <statusCode code=" completed" /> <effectiveTime value="768978368771" /> <value unit="mmol/L" xsi:type="PQ" value=& quot;24" /> <referenceRange> < observationRange> <text>21-32</text> < /observationRange> </referenceRange> </observation& gt; </component> </organizer> </entry> <entry&gt ; <organizer moodCode="EVN" classCode="BATTERY"> <templateId root="2.16.840.1.716170.10..22.4.1" /> & lt;id nullFlavor="NA" /> <code codeSystem="local&quot ; code="MAG" displayName="MAGNESIUM" /> < statusCode code="completed" /> <component> < observation moodCode="EVN" classCode="OBS"> < templateId root="2.16.840.1.909036.10..22.4.2" /> < id nullFlavor="NA" /> <code codeSystem="local&quot ; code="MAG" displayName="MAGNESIUM" /> < statusCode code="completed" /> <effectiveTime value=& quot;264347249392" /> <value unit="mg/dL" xsi:type ="PQ" value="2.0" /> <referenceRange> <observationRange> <text>1.8-2.4</text> </observationRange> </referenceRange> </ observation> </component> </organizer> </entry> & lt;entry> <organizer moodCode="EVN" classCode="BATTERY& quot;> <templateId root="2.16.840.1.316936.10.20.22.4.1" /& gt; <id nullFlavor="NA" /> <code codeSystem=" local" code="CBC" displayName="CBC" /> < statusCode code="completed" /> <component> < observation moodCode="EVN" classCode="OBS"> < templateId root="2.16.840.1.142023.10..22.4.2" /> < id nullFlavor="NA" /> <code codeSystem="local" code="MCH" displayName="MEAN CELL HGB" /> < statusCode code="completed" /> <effectiveTime value=& quot;079307363366" /> <value unit="pg" xsi:type=& quot;PQ" value="33.0" /> <referenceRange> <observationRange> <text>27.0-33.0</text> & lt;/observationRange> </referenceRange> </ observation> </component> <component> < observation moodCode="EVN" classCode="OBS"> < templateId root="2.16.840.1.136857.10.20.22.4.2" /> < id nullFlavor="NA" /> <code codeSystem="local&quot ; code="[facility]CHC" displayName="MEAN CELL HGB CONCENTRATION" /&gt ; <statusCode code="completed" /> < effectiveTime value="702957099732" /> <value unit=&quot ;g/dL" xsi:type="PQ" value="34.8" /> < referenceRange> <observationRange><text>32.0-37.0</ text> </observationRange> </referenceRange> </observation> </component> <component> <observation moodCode="EVN" classCode="OBS"> <templateId root="2.16.840.1.455059.10.20.22.4.2" /> <id nullFlavor="NA" /> <code codeSystem=" local" code="MCV" displayName="MEAN CELL VOLUME" /> <statusCode code="completed" /> <effectiveTime value="455835571180" /> <value unit="fl" xsi: type="PQ" value="94.6" /> <referenceRange&gt ; <observationRange> <text>80.0-100.0</ text> </observationRange> </referenceRange> </observation> </component> <component> <observation moodCode="EVN" classCode="OBS"> <templateId root="2.16.840.1.802828.10..22.4.2" /> <id nullFlavor="NA" /> <code codeSystem=" local" code="RBC" displayName="RED BLOOD CELL" /> <statusCode code="completed" /> < effectiveTime value="656005070753" /> <value unit="m/ cumm" xsi:type="PQ" value="4.43" /> < referenceRange> <observationRange> <text> 4.00-6.00</text> </observationRange> </ referenceRange> </observation> </component> < component> <observation moodCode="EVN" classCode=" OBS"> <templateId root="2.16.840.1.147738.10.20.22.4.2& quot;/> <id nullFlavor="NA" /> <code codeSystem="local"code="RDW" displayName="RED CELL DISTRIBUTION WIDTH" /> <statusCode code="completed&quot ; /> <effectiveTime value="822917416593" /> & lt;value unit="%" xsi:type="PQ" value="12.5& quot; /> <referenceRange> <observationRange> <text>11.0-15.6</text> </observationRange&gt ; </referenceRange> </observation> </ component> <component> <observation moodCode="EVN& quot; classCode="OBS"> <templateId root=" 2.16.840.1.953040.10.20.22.4.2" /> <id nullFlavor="NA& quot; /> <code codeSystem="local" code="WBC" displayName="WHITE BLOOD CELL" /> <statusCode code=& quot;completed" /> <effectiveTime value="334850317627& quot; /> <value unit="k/cumm" xsi:type="PQ" value="8.3" /> <referenceRange> < observationRange> <text>5.0-10.0</text> < /observationRange> </referenceRange> </observation& gt;</component> <component> <observation moodCode=& quot;EVN" classCode="OBS"> <templateId root=" 2.16.840.1.229848.10.20.22.4.2" /> <id nullFlavor="NA" /> <code codeSystem="local" code="HGBT" displayName="HEMOGLOBIN" /> <statusCode code=" completed" /> <effectiveTime value="562019313625" /> <value unit="gm/dL" xsi:type="PQ" value=& quot;14.6" /> <referenceRange> < observationRange> <text>14.0-18.0</text> </observationRange> </referenceRange> </ observation> </component> <component> < observation moodCode="EVN" classCode="OBS"> < templateId root="2.16.840.1.532182.10.20.22.4.2" /> < id nullFlavor="NA" /> <code codeSystem="local&quot ; code="HCTT" displayName="HEMATOCRIT" /> < statusCode code="completed" /> <effectiveTime value=" 616977837592" /> <value unit="%" xsi:type= "PQ" value="41.9" /> <referenceRange> <observationRange> <text>40.0-54.0</text&gt ; </observationRange> </referenceRange> & lt;/observation> </component> <component> < observation moodCode="EVN" classCode="OBS"> < templateId root="2.16.840.1.436038.10.20.22.4.2" /> < id nullFlavor="NA" /> <code codeSystem="local&quot ; code="PLT" displayName="PLATELET COUNT" /> &lt ;statusCode code="completed" /> <effectiveTime value=& quot;819199192309" /> <value unit="k/cumm" xsi: type="PQ" value="237" /> <referenceRange> <observationRange> <text>150-400</text& gt; </observationRange> </referenceRange> </observation> </component> </organizer> </entry > <entry> <organizer moodCode="EVN" classCode=" BATTERY"> <templateId root="2.16.840.1.539228.10.20.22.4.1& quot; /> <id nullFlavor="NA" /> <code codeSystem ="local" code="PTTH" displayName="PTT HEPARIN PROTOCOLS " /> <statusCode code="completed" /> < component> <observation moodCode="EVN" classCode=" OBS"> <templateId root="2.16.840.1.899876.10.20.22.4.2& quot; /> <id nullFlavor="NA" /> <code codeSystem="local" code="PTT" displayName="PARTIAL THROMBOPLASTIN TIME" /> <statusCode code="completed& quot; /> <effectiveTime value="250278474886" /> < value unit="sec" xsi:type="PQ" value="34" /> <referenceRange> <observationRange> <text>24-36</text> </observationRange> </ referenceRange> </observation> </component> </ organizer></entry> <entry> <organizer moodCode="EVN& quot; classCode="BATTERY"> <templateId root=" 2.16.840.1.938946.10.20.22.4.1" /> <id nullFlavor="NA&quot ; /> <code codeSystem="local" code="METAB" displayName="METABOLIC PANEL, BASIC" /> <statusCode code=& quot;completed" /> <component> <observation moodCode="EVN" classCode="OBS"> <templateId root=&quot ;2.16.840.1.677632.10.20.22.4.2" /> <id nullFlavor="NA& quot; /> <code codeSystem="local" code="K" displayName="POTASSIUM" /> <statusCode code=" completed" /> <effectiveTime value="730056414219" /> <value unit="mmol/L" xsi:type="PQ" value=& quot;4.0" /> <referenceRange> < observationRange> <text>3.5-5.3</text> & lt;/observationRange> </referenceRange> </ observation> </component> <component> < observation moodCode="EVN" classCode="OBS"> < templateId root="[id number]" /> < id nullFlavor="NA" /> <code codeSystem="local" code= "eGFR" displayName="EST GFR (MDRD)" /> < statusCode code="completed" /> <effectiveTime value=& quot;[id number]" /> <value unit="mL/min" xsi: type="PQ" value="> 60" /> < referenceRange> <observationRange> <text>& gt; 59</text> </observationRange> </ referenceRange> </observation> </component> < component> <observation moodCode="EVN" classCode=" OBS"> <templateId root="[id number]& quot; /> <id nullFlavor="NA" /><code codeSystem=& quot;local" code="GAP" displayName="ANION GAP" /> <statusCode code="completed" /> <effectiveTime value="087307118784" /> <value unit="mmol/L" xsi:type="PQ" value="11" /> <referenceRange& gt; <observationRange> <text>5-15</text& gt; </observationRange> </referenceRange> </observation> </component> <component> &lt ;observation moodCode="EVN" classCode="OBS"> &lt ;templateId root="2.16.840.1.412999.10..22.4.2" /> < id nullFlavor="NA" /> <code codeSystem="local&quot ; code="eCrCl" displayName="EST CrCl (CG)" /> & lt;statusCode code="completed" /> <effectiveTime value= "776216542946" /> <value unit="mL/min" xsi:type ="PQ" value="> 60" /> <referenceRange& gt; <observationRange> <text>> 59< /text> </observationRange> </referenceRange> </observation> </component> <component> <observation moodCode="EVN" classCode="OBS"> <templateId root="[id number].2" /> <id nullFlavor="NA" /> <code codeSystem=" local" code="GLU" displayName="GLUCOSE" /> <statusCode code="completed" /> <effectiveTime value ="567116110371" /> <value unit="mg/dL" xsi: type="PQ" value="98" /> <referenceRange> <observationRange> <text>70-99</text> </observationRange> </referenceRange> </ observation> </component> <component> < observation moodCode="EVN" classCode="OBS"> < templateId root="2.16.840.1.836461.10.20.22.4.2" /> < id nullFlavor="NA" /> <code codeSystem="local&quot ; code="CA" displayName="CALCIUM" /> < statusCode code="completed" /> <effectiveTime value=" 399204246540" /> <value unit="mg/dL" xsi:type=& quot;PQ" value="8.6" /> <referenceRange> <observationRange> <text>8.5-10.1</text> </observationRange> </referenceRange> < /observation> </component> <component> < observation moodCode="EVN" classCode="OBS"> < templateId root="2.16.840.1.047855.10.20.22.4.2" /> < id nullFlavor="NA" /> <code codeSystem="local&quot ; code="BUN" displayName="BLOOD UREA NITROGEN" /> <statusCode code="completed" /> <effectiveTime value="338361652191" /> <value unit="mg/dL" xsi:type="PQ" value="13" /> <referenceRange& gt; <observationRange> <text>7-20</text& gt; </observationRange> </referenceRange> </observation> </component> <component> < observation moodCode="EVN" classCode="OBS"> < templateId root="2.16.840.1.792224.10.20.22.4.2" /> < id nullFlavor="NA" /> <code codeSystem="local" code="CREAT" displayName="CREATININE" /> < statusCode code="completed" /> <effectiveTime value=& quot;005111245849" /> <value unit="mg/dL" xsi:type ="PQ" value="1.1" /> <referenceRange> <observationRange><text>0.8-1.3</text> < /observationRange> </referenceRange> </observation& gt; </component> <component> <observation moodCode="EVN" classCode="OBS"> <templateId root="2.16.840.1.867191.10.20.22.4.2" /> <id nullFlavor ="NA" /> <code codeSystem="local" code=" NA" displayName="SODIUM" /> <statusCode code=&quot ;completed" /> <effectiveTime value="801682226928&quot ; /> <value unit="mmol/L" xsi:type="PQ" value ="140" /> <referenceRange> <observationRange > <text>135-148</text> </ observationRange> </referenceRange> </observation&gt ; </component> <component> <observation moodCode ="EVN" classCode="OBS"> <templateId root=& quot;2.16.840.1.058780.10.20.22.4.2"/> <id nullFlavor=" NA" /> <code codeSystem="local"code="CL&quot ; displayName="CHLORIDE" /> <statusCode code=" completed" /> <effectiveTime value="234693679363" /> <value unit="mmol/L" xsi:type="PQ" value=& quot;107" /> <referenceRange> < observationRange> <text>98-110</text> &lt ;/observationRange> </referenceRange> </observation& gt; </component> <component> <observation moodCode="EVN" classCode="OBS"> <templateId root="2.16.840.1.819121.10.20.22.4.2" /> <id nullFlavor ="NA" /> <code codeSystem="local" code=" CO2" displayName="CARBON DIOXIDE" /> <statusCode code="completed" /> <effectiveTime value=" 541068269255" /> <value unit="mmol/L" xsi:type=& quot;PQ" value="22" /> <referenceRange> <observationRange> <text>21-32</text> </observationRange> </referenceRange> </ observation> </component> </organizer> </entry> & lt;entry> <organizer moodCode="EVN" classCode="BATTERY& quot;> <templateId root="2.16.840.1.235226.10.20.22.4.1" /& gt; <id nullFlavor="NA" /> <code codeSystem=" local" code="HDLPRO" displayName="LIPID PANEL" /> <statusCode code="completed" /> <component> <observation moodCode="EVN" classCode="OBS">< templateId root="2.16.840.1.883716.10.20.22.4.2" /> < id nullFlavor="NA" /> <code codeSystem="local&quot ; code="CHOL/HDL" displayName="CHOLESTEROL/HDL RATIO" /> <statusCode code="completed" /> <effectiveTime value="195558837283" /> <value unit="" xsi: type="PQ" value="6.2" /> <interpretationCode codeSystem="local" code="*" /> < referenceRange> <observationRange> <text> < 5.0</text> </observationRange> </ referenceRange> </observation> </component> < component> <observation moodCode="EVN" classCode="OBS&quot ;> <templateId root="2.16.840.1.304768.10..22.4.2" /& gt; <id nullFlavor="NA" /> <code codeSystem=& quot;local" code="LDLX" displayName="LDL CHOLESTEROL" / > <statusCode code="completed" /> < effectiveTime value="662027307734" /> <value unit=&quot ;mg/dL" xsi:type="PQ" value="131" /> < interpretationCode codeSystem="local" code="*" /> <referenceRange> <observationRange> < text>< 100</text> </observationRange> </referenceRange> </observation> </component> < component> <observation moodCode="EVN" classCode=" OBS"> <templateId root="2.16.840.1.509085.10.20.22.4.2& quot; /> <id nullFlavor="NA" /> <code codeSystem="local" code="VLDL" displayName="VLDL CHOLESTEROL" /> <statusCode code="completed" /&gt ; <effectiveTime value="889321874295" /> < value unit="mg/dL" xsi:type="PQ" value="30" /> <referenceRange> <observationRange> <text><30</text> </observationRange> </referenceRange> </observation> </component> <component> <observation moodCode="EVN" classCode ="OBS"> <templateId root=" 2.16.840.1.424742.10.20.22.4.2" /> <id nullFlavor="NA& quot; /> <code codeSystem="local" code="TRIG&quot ; displayName="TRIGLYCERIDES" /> <statusCode code=&quot ;completed" /> <effectiveTime value="702104045069&quot ; /> <value unit="mg/dL" xsi:type="PQ" value=" 151" /> <interpretationCode codeSystem="local" code="*" /> <referenceRange> < observationRange> <text>< 150</text></ observationRange> </referenceRange> </observation&gt ; </component> <component> <observation moodCode ="EVN" classCode="OBS"> <templateId root=& quot;2.16.840.1.327779.10.20.22.4.2" /> <id nullFlavor=&quot ;NA" /> <code codeSystem="local" code="CHOL& quot; displayName="CHOLESTEROL" /> <statusCode code=& quot;completed" /> <effectiveTime value="229877532323& quot; /> <value unit="mg/dL" xsi:type="PQ" value="192" /> <referenceRange><observationRange& gt; <text>< 200</text> </ observationRange> </referenceRange> </observation&gt ; </component> <component> <observation moodCode=& quot;EVN" classCode="OBS"> <templateId root=" 2.16.840.1.186465.10.20.22.4.2" /> <id nullFlavor="NA& quot; /> <code codeSystem="local" code="HDL" displayName="HDL CHOLESTEROL" /> <statusCode code=&quot ;completed" /> <effectiveTime value="047686068536&quot ; /> <value unit="mg/dL" xsi:type="PQ" value= "31" /> <interpretationCode codeSystem="local&quot ; code="*" /> <referenceRange> < observationRange> <text>> 39</text> & lt;/observationRange> </referenceRange> </ observation> </component> </organizer> </entry>&lt ;/section> Encounters ACCT No. Visit Discharge Status Pt. Type Provider Facility Loc./Unit Complaint Date/Time [id number] 11/04/2013 11/06/2013 DIS Outpatie Neal Hess W.3TS 861 10:41:00 18:28:00 kassandra LI, [facility] [id number] 12/27/2015 12/28/2015 DIS Outpatie Gwen,, Via [facility] F4 Chest pain, 420 12:33:00 15:43:00 nt [facility] R/O [facility] on [place] [id number] 04/20/2014 04/23/2014 DIS Inclaudio Hidalgo MD, Via [address] CHEST PAIN 351 09:16:00 14:15:00 t [facility] on [place] [id number] 04/01/2014 04/08/2014 DIS Inpatien Miah Via [address] Non- ischemic 231 14:11:00 15:45:00 chanda LI, [facility] on [place] [id number] 12/29/2015 Document 32470 05:15:52 Registra tion [id number] 12/28/2015 Document 63174 05:16:14 Registra tion [id number] 01/15/2015 Document 45244 11:43:36 Registra tion [id number] 01/15/2015 Document [id number] 11:11:34 Registra tion [id number] 01/15/2015 Document [id number] 11:04:00 Registra tion [id number] 01/15/2015 Document [id number] 10:57:21 Registra tion [id number] 01/15/2015 Document 32418 10:51:41 Registra tion [id number] 06/01/2016 ACT Unknown [id number] 10:40:00 [id number] 05/21/2016 ACT Unknown [id number] 07:43:00 [id number] 02/02/2016 ACT Unknown [id number] 14:16:00 [id number] 02/02/2016 ACT Unknown [id number] 14:15:00 [id number] 04/17/2015 ACT Unknown [id number] 17:47:00 [id number] 04/25/2014 ACT Unknown [id number] 12:47:00 [id number] 01/14/2014 ACT Unknown [id number] 14:19:00 [id number] 11/19/2013 ACT Unknown [id number] 10:45:00 [id number] 01/09/2013 ACT Unknown [id number] 15:34:00
--- OUTSIDE RECORDS SUMMARY | 2017-03-18 13:09 | External Medical Summary ---
:1970 Author Organization [employer] Care Team Providers Name Role Phone Chetan Fitzpatrick Provider Role Unavailable Allergies No Known Allergies Problems Problem Type Condition Code Onset Dates Condition Status Assessment Dental caries, unspecified K02.9 Active Medications Medication Code Code Instructions Start End Status Dosage System Date Date Pantoprazole NDC 54823-81 not Sodium 69-14 defined Atorvastatin NDC 44674-11 not Calcium 22-05 defined Carvedilol NDC 02996-49 not 51-01 defined Furosemide NDC 0 not defined Amoxicillin NDC 60082-79 500 MG Orally 1 capsule 09-05 every 8 hrs for Hydrocodone-Acetam NDC 71909-63 7.5-325 MG 1 tablet inophen 66-01 Orally every 4-6 as needed hrs p.r.n. for Aspirin Adult Low NDC 32026-24 not Strength 59-68 defined Losartan Potassium NDC 25015-81 not 25-22 defined Sotalol HCl NDC 62443-26 not 76-10 defined Spironolactone NDC 06563-84 not 72-11 defined Procedures Procedure Coding System Code Date RSN COMPOS-4/> SURF/W/INCISAL ANG CPT-4 D2335 Feb 17, 2016 Results No Known Results Summary Purpose eClinicalWorks Submission
--- OUTSIDE RECORDS SUMMARY | 2017-03-18 13:09 | External Medical Summary ---
:1970 Author Organization [employer] Care Team Providers Name Role Phone Chetan Fitzpatrick Provider Role Unavailable Allergies, Adverse Reactions, Alerts Substance Reaction Event Type N.K.D.A. Info Not Available Non Drug Allergy Problems Problem Type Condition Code Onset Dates Condition Status Assessment Encounter for dental examination and Z01.20 Active cleaning without abnormal findings Medications Medication Code Code Instructions Start End Date Status Dosage System Date Sotalol HCl NDC 67971-16 not defined 76-10 Furosemide NDC 0 not defined Carvedilol NDC 52911-21 not defined 51-01 Pantoprazole Sodium NDC 36403-57 not defined 69-14 Losartan Potassium NDC 51448-11 not defined 25-22 Spironolactone NDC 27615-22 not defined 72-11 Atorvastatin NDC 11937-98 not defined Calcium 22-05 Aspirin Adult Low NDC 07779-21 not defined Strength 59-68 Procedures Procedure Coding System Code Date PALLIATVE TX DENTAL PAIN-MINOR PROC CPT-4 D9110 Jan 20, 2016 LTD ORAL EVALUATION - PROBLEM FOCUS CPT-4 D0140 Jan 20, 2016 INTRAORL-PERIAPICAL 1 FILM 60367 CPT-4 D0220 Jan 20, 2016 Results No Known Results Summary Purpose eClinicalWorks Submission
--- OUTSIDE RECORDS SUMMARY | 2017-03-18 13:09 | External Medical Summary | CCD ---
:1970 Author Name DERIC ALSTON Address [address], [place] [id number] Care Team Providers Name Role Phone THEE KOWALSKI Attending Physician Unavailable THEE KOWALSKI Er Physician 1 Unavailable Vital Signs Unknown or Not Available. [...] 2.0 % L=0.0 H=4.0 TROPONIN I 1.15 ng/mL L=0.00 H=0.05 COMP METABOLIC - Collect Date/Time: 05/10/2016 09:03 Test Name Code Test Result Test Units Test Ref Range GLUCOSE 101 mg/dL L=70 H=110 BUN 13 mg/dL L=7 H=18 CREATININE 0.99 mg/dL L=0.60 H=1.30 AGE 45 YEARS GFR 81.0 L=60.0 H=120 SODIUM 143 mmol/L L=136 H=145 POTASSIUM 2.9 mmol/L L=3.5 H=5.1 CHLORIDE 106 mmol/L L=98 H=107 CO2 25 mmol/L L=21 H=32 CALCIUM 8.8 mg/dL L=8.5 H=10.1 AST 12 U/L L=15 H=37 ALT 32 U/L L=12 H=78 ALKALINE PHOS 60 U/L L=46 H=116 TOTAL PROTEIN 7.2 g/dL L=6.4 H=8.2 ALBUMIN 3.6 g/dL L=3.4 H=5.0 TOTAL BILI 1.00 mg/dL L=0.00 H=1.00 CBC W/ DIFF - Collect Date/Time: 05/10/2016 09:03 Test Name Code Test Result Test Units Test Ref Range WBC 7.2 x10^3 L=4.8 H=10.8 RBC 4.72 x10^6 L=4.70 H=6.10 HEMOGLOBIN 15.7 g/dL L=14.0 H=18.0 HEMATOCRIT 46.1 % L=42.0 H=52.0 [...] Start Date End Date Current every day [id number] smoker Patient Decision Aids Unknown or Not Available. Discharge Instructions You were admitted to [facility] on 05/10/2016 09:40 You had the following tests done: CARDIAC PANEL CBC W/ DIFF COMP METABOLIC You were discharged from [facility] on 05/10/2016 09:40 Should you have any [...]
--- OUTSIDE RECORDS SUMMARY | 2017-03-18 13:09 | External Medical Summary ---
:1970 Author Organization [employer]Works Care Team Providers Name Role Phone Chetan Fitzpatrick Provider Role Unavailable Allergies No Known Allergies Problems Problem Type Condition Code Onset Dates Condition Status Assessment Dental caries, unspecified K02.9 Active Medications Medication Code Code Instructions Start End Status Dosage System Date Date Losartan Potassium NDC 97371-25 not 25-22 defined Sotalol HCl NDC 48396-27 not 76-10 defined Carvedilol NDC 51360-92 not 51-01 defined Amoxicillin NDC 09090-07 500 MG Orally 1 capsule 09-05 every 8 hrs for Furosemide NDC 0 not defined Hydrocodone-Acetam NDC 71462-43 7.5-325 MG 1 tablet inophen 66-01 Orally every 4-6 as needed hrs p.r.n. for Aspirin Adult Low NDC 88921-37 not Strength 59-68 defined Pantoprazole NDC 11959-35 not Sodium 69-14 defined Atorvastatin NDC 30056-96 not Calcium 22-05 defined Spironolactone NDC 12775-35 not 72-11 defined Procedures Procedure Coding System Code Date RESIN COMPOS - 2 SURFACES POSTERIOR CPT-4 D2392 Mar 02, 2016 RESIN COMPOS - ONE SURFACE ANTERIOR CPT-4 D2330 Mar 02, 2016 Results No Known Results Summary Purpose eClinicalWorks Submission
--- OUTSIDE RECORDS SUMMARY | 2017-03-18 13:09 | External Medical Summary ---
:1970 Author Organization [employer]Works Care Team Providers Name Role Phone Chetan Fitzpatrick Provider Role Unavailable Allergies No Known Allergies Problems Problem Type Condition Code Onset Dates Condition Status Assessment Dental caries on pit and fissure K02.52 Active surface penetrating into dentin Medications Medication Code Code Instructions Start End Status Dosage System Date Date Furosemide NDC 0 [place] [address]-20 not 51-01 [place] [address]-73 not Calcium 22-05 [place] [address]-11 7.5-325 MG 1 tablet inophen 66-01 Orally every 4-6 as needed hrs [place] [address]-18 not Strength 59-68 [place] [address]-32 not 76-10 [place] [address]-56 not Sodium 69-[place] [address]-84 500 MG Orally 1 capsule 09-05 every 8 hrs for Spironolactone NDC 71703-59 not 72-11 [place] [address]-16 not 25-22 defined Procedures Procedure Coding System Code Date RESIN COMPOS - 3 SURFACES ANTERIOR CPT-4 D2332 Feb 24, 2016 RSN COMPOS-4/> SURF/W/INCISAL ANG CPT-4 D2335 Feb 24, 2016 Results No Known Results Summary Purpose eClinicalWorks Submission
--- OUTSIDE RECORDS SUMMARY | 2017-03-18 13:09 | External Medical Summary ---
:1970 Author Organization [employer]Works Care Team Providers Name Role Phone Chetan Fitzpatrick Provider Role Unavailable Allergies No Known Allergies Problems Problem Type Condition Code Onset Dates Condition Status Assessment Dental caries, unspecified K02.9 Active Medications Medication Code Code Instructions Start End Status Dosage System Date Date Atorvastatin NDC 82523-98 not Calcium 22-05 defined Spironolactone NDC 86745-00 not 72-11 defined Losartan Potassium NDC 81586-15 not 25-22 defined Carvedilol NDC 04041-95 not 51-01 defined Pantoprazole NDC 27483-76 not Sodium 69-14 defined Hydrocodone-Acetam NDC 06338-02 7.5-325 MG 1 tablet inophen 66-01 Orally every 4-6 as needed hrs p.r.n. for Furosemide NDC 0 not defined Sotalol HCl NDC 05387-35 not 76-10 defined Aspirin Adult Low NDC 11908-34 not Strength 59-68 defined Procedures Procedure Coding System Code Date RSN COMPOS-4/> SURF/W/INCISAL ANG CPT-4 D2335 Feb 03, 2016 Results No Known Results Summary Purpose eClinicalWorks Submission
--- OUTSIDE RECORDS SUMMARY | 2017-03-18 13:09 | External Medical Summary ---
[...] Start End Status Dosage System Date Date Carvedilol NDC 45167-99 not 51-01 defined Losartan Potassium NDC 39882-09 not 25-22 defined Sotalol HCl NDC 04865-49 not 76-10 defined Atorvastatin NDC 40989-78 not Calcium 22-05 defined Aspirin Adult Low NDC 18206-55 not Strength 59-68 defined Hydrocodone-Acetam NDC 87939-78 7.5-325 MG 1 tablet inophen 66-01 Orally every 4-6 as needed hrs p.r.n. for Spironolactone NDC 85239-73 not 72-11 defined Furosemide NDC 0 not defined Pantoprazole NDC 67596-57 not Sodium 69-14 defined Procedures Procedure Coding System Code Date INTRAORL - CMPL SERIES CODE 37256 CPT-4 D0210 Jan 28, 2016 COMP ORAL EVALUATION - NEW/EST PT CPT-4 D0150 Jan 28, 2016 Results No Known Results Summary Purpose eClinicalWorks Submission
--- NOTE | 2017-03-18 13:27 | Cardiology History & Physical ---
History of Present Illness HPI: Florencio is a 45 year old male known to Dr. De Jesus for Dilated Cardiomyopathy, EF 20%, with a BiV/ICD. 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 We admitted him for chest wall pain and concerns for Chronic SHF. Medications Home Medications Medication Instructions Recorded Confirmed Type Aspirin [Aspir 81] 1 tab PO DAILY #0 tab 02/20/14 03/18/17 History Spironolactone 25 mg PO DAILY #30 02/20/14 03/18/17 History Atorvastatin Calcium 1 tab PO HS #0 tab 05/10/16 03/18/17 History Pantoprazole Sodium 40 mg PO ACB #0 tab 05/10/16 03/18/17 History Furosemide 0.5 tab PO DAILY #0 tab 07/19/16 03/18/17 History Potassium Chloride [Klor-Con 10] 1 tab PO DAILY #0 07/19/16 03/18/17 History Docusate Sodium [Colace] 1 cap PO BID 03/18/17 03/18/17 History Doxycycline [Vibramycin] 1 tab PO BID 03/18/17 03/18/17 History Loratadine [Claritin] 10 mg PO DAILY 03/18/17 03/18/17 History Allergies Allergy/AdvReac Type Severity Reaction Status Date / Time NKDA Allergy Uncoded 03/18/17 13:35 Exam Vital signs: Temperature 96.5 F L 03/18/17 13:07 Pulse Rate 75 03/18/17 13:07 Respiratory Rate 22 03/18/17 13:07 Blood Pressure 116/87 03/18/17 13:07 Pulse Oximetry 98 03/18/17 13:07 Results 03/18/17 13:40 03/18/17 13:40 Intake and Output 03/17/17 03/18/17 03/18/17 22:59 06:59 14:59 Other: Weight 102.8 kg Patient Weight 03/19/17 06:59 Weight 102.8 kg Hospital Course This is a general summary of the patient's hospital course. For more details refer to the complete medical record.
--- NOTE | 2017-03-18 14:26 | XRay Report ---
Indication: CHEST PAIN PROCEDURE: XR chest 1V: Encounter: Initial Comparison: June 30, 2016 Findings: There is new hazy airspace opacity in the left upper lobe. Right lung is clear. There is no pleural effusion or pneumothorax. The heart size, pulmonary vascularity and mediastinal contours are unchanged. Left cardiac pacemaker defibrillator. IMPRESSION: Left upper lobe airspace disease could be due to atelectasis or pneumonia. .
--- NOTE | 2017-03-18 16:24 | Cardiology History & Physical ---
History of Present Illness Chief complaint: chest pain HPI: Florencio is a 46 year old male who is well known to with a history of Dilated cardiomyopathy, EF 15-20%, BiV/ICD, who presented to the ED in [place] with chest pressure. He was found to have an elevated BNP and Troponin and Dr. De Jesus was contacted for transfer to [facility] for observation admission. Hx Cardiac procedures: 05/10/2016 echo: EF 15-20%, global hypokinesia, LAE, LVE, mod MR, mild TR, PAP 37 , mild PI. 02/18/2014 BiV/ICD - [employer] implanted. 11/05/2013 heart cath: EF 10%, LVE, LVEDP 23, Coronaries normal. Review of Systems - Constitutional Constitutional: Present: fatigue. Absent: chills, fever(s) - EENMT Eyes: Absent: change in vision Balance: Absent: vertigo Mouth/Throat: Absent: sore throat - Cardiovascular Cardiovascular: Present: chest pain, dyspnea on exertion, orthopnea. Absent: palpitations, syncope Vascular: Present: pedal edema - Respiratory Respiratory: Present: dyspnea on exertion. Absent: cough, dyspnea - Gastrointestinal Gastrointestinal: Absent: abdominal pain, diarrhea, nausea, vomiting - Genitourinary Genitourinary: Absent: dysuria - Musculoskeletal Musculoskeletal: Present: back pain - Integumentary/Breasts Integumentary: Absent: rash - Neurological Neurological: Absent: dizziness - Endocrine Endocrine: Absent: palpitations PFS Patient Stated Medical History Congestive Heart Failure Yes Myocardial Infarction Yes HTN Dilated cardiomyopathy Ventricular tachycardia Surgical History: [place] [employer] BI-V/ICD 01/2014. cholecystectomy Family History: Patient is adopted - No known family history - Social History Smoking status: Former smoker Quit date: 06/29/16 Substance use type: does not use Alcohol intake frequency: does not drink Housing: house Household members: children Current occupational status: disabled Current residence: Apartment/Private Home Medications Home Medications Medication Instructions Recorded Confirmed Type Aspirin [Aspir 81] 1 tab PO DAILY #0 tab 02/20/14 03/18/17 History Spironolactone 25 mg PO DAILY #30 02/20/14 03/18/17 History Atorvastatin Calcium 1 tab PO HS #0 tab 05/10/16 03/18/17 History Pantoprazole Sodium 40 mg PO ACB #0 tab 05/10/16 03/18/17 History Furosemide 0.5 tab PO DAILY #0 tab 07/19/16 03/18/17 History Potassium Chloride [Klor-Con 10] 1 tab PO DAILY #0 07/19/16 03/18/17 History Docusate Sodium [Colace] 1 cap PO BID 03/18/17 03/18/17 History Doxycycline [Vibramycin] 1 tab PO BID 03/18/17 03/18/17 History Loratadine [Claritin] 10 mg PO DAILY 03/18/17 03/18/17 History Allergies Allergy/AdvReac Type Severity Reaction Status Date / Time No Known Allergies Allergy Verified 03/18/17 16:32 Exam Vital signs: Temperature 96.5 F L 03/18/17 13:07 Pulse Rate 74 03/18/17 13:09 Respiratory Rate 22 03/18/17 13:07 Blood Pressure 116/87 03/18/17 13:07 Pulse Oximetry 98 03/18/17 13:07 - Constitutional no acute distress, well nourished, cooperative - Routine HEENT Exam Head: Present: normocephalic ENT: Present: mucous membranes moist - Routine Neck Exam Absent: JVD, carotid bruit - Routine Chest/Breast/Axilla Exam Chest wall: Present: pacemaker. Absent: tenderness - Routine Respiratory Exam Present: CTA bilaterally. Absent: rales, wheezes - Routine Cardiovascular Exam Present: RRR, no murmur - Routine Abdominal Exam Present: soft, normoactive bowel sounds - Routine Extremities Exam Present: edema (LEs) - Routine Skin Exam Present: intact, dry, warm - Routine Neurological Exam Present: alert, oriented X3 - Routine Psychiatric Exam Present: normal affect, normal thought process Results 03/19/17 05:19 03/19/17 05:19 Cardiac Enzymes 03/18/17 03/18/17 Range/Units 13:40 13:40 AST 18 (17-59) U/L Troponin I 0.033 (0-0.12) ng/ml B-Natriuretic Peptide 9600 H (0-175) pg/mL Coagulation 03/18/17 Range/Units 13:40 B-Natriuretic Peptide 9600 H (0-175) pg/mL CBC 03/18/17 Range/Units 13:40 WBC 7.1 (4.5-11.0) T/MM3 RBC 4.27 L (4.50-5.90) M/MM3 Hgb 14.2 (13.5-17.5) GM/DL Hct 42.1 (41-53) % Plt Count 249 (130-400) T/MM3 Neut # (Auto) 4.9 (1.8-7.7) T/MM3 Lymph # (Auto) 1.6 (1-4.8) T/MM3 [place] # (Auto) 0.4 (0-0.8) T/MM3 Eos # (Auto) 0.1 (0-0.5) T/MM3 Baso # (Auto) 0.0 (0-0.2) T/MM3 Comprehensive Metabolic Panel 03/18/17 Range/Units 13:40 Sodium 144 (134-144) MEQ/L Potassium 3.8 (3.6-5) MEQ/L Chloride 110 H (98-107) MEQ/L Carbon Dioxide 24 (22-30) MEQ/L BUN 15.0 (9-20) MG/DL Creatinine 1.1 (0.8-1.5) MG/DL Glucose 99 (75-110) MG/DL Calcium 8.8 (8.4-10.2) MG/DL AST 18 (17-59) U/L ALT 36 (21-72) U/L Alkaline Phosphatase 70 (38-126) U/L Total Protein 7.7 (6.3-8.2) G/DL Albumin 4.2 (3.5-5.0) G/DL Intake and Output 03/18/17 03/18/17 03/18/17 06:59 14:59 22:59 Other: Weight 226 lb 10.163 oz Patient Weight 03/19/17 06:59 Weight 226 lb 10.163 oz - Imaging and Cardiology Imaging & Cardiology Narrative: Date of Exam: 03/18/17 Ordering Provider: Sonido De Jesus MD Type of Exam(s): XR chest 1V Reason for Exam(s): CHEST PAIN Indication: CHEST PAIN PROCEDURE: XR chest 1V: Encounter: Initial Comparison: June 30, 2016 Findings: There is new hazy airspace opacity in the left upper lobe. Right lung is clear. There is no pleural effusion or pneumothorax. The heart size, pulmonary vascularity and mediastinal contours are unchanged. Left cardiac pacemaker defibrillator. IMPRESSION: Left upper lobe airspace disease could be due to atelectasis or pneumonia. 03/18/17 16:26 EKG interpretations - MS, pacemaker, normal Pacemaker: normal ventricular sensing Hospital Course This is a general summary of the patient's hospital course. For more details refer to the complete medical record. Time spent with patient: 25 - 35 minutes DVT Prophylaxis: Lovenox Assessment and Plan - Attestation Attestation Narrative: 03/22/17 12:45 Recommendation After examining the patient I agree with the above assessment. I am involved in the formulation of the patient's plan of care. - Assessment and Plan (1) Acute on chronic systolic (congestive) heart failure Status: Acute Orthopnea, chest pressure, pedal edema, BNP 9600 - Diurese with Lasix 40mg IV q12h - Accurate I&O please - Sodium and fluid restrictions - Monitor renal and electrolytes (2) Dilated cardiomyopathy Status: Chronic Last echo 05/10/16: Severe global hypokinesia with ejection fraction no more than 15-20%. - Left atrial dilation. - Markedly dilated left ventricle. - Continue Coreg and Entresto (3) Ventricular tachycardia Status: Chronic Interrogate ICD: [place] [employer] (4) Presence of automatic implantable cardioverter-defibrillator Status: Chronic - Assessment and Plan Acute on chronic Systolic CHF: Orthopnea, chest pressure, pedal edema, BNP 9600 - Diurese with Lasix 40mg IV q12h - Accurate I&O please - Sodium and fluid restrictions - Monitor renal and electrolytes Dilated CM: Last echo 05/10/16: Severe global hypokinesia with ejection fraction no more than 15-20%. - Left atrial dilation. - Markedly dilated left ventricle. - Continue Coreg and Entresto V Tach/ ICD: - Interrogate ICD: [place] [employer]
[2017-03-18] MEDS: FUROSEMIDE 40 MG/4 ML INJECTION IVP SCH ×2 (18:19→23:13)
[2017-03-18] MEDS: ENOXAPARIN 40 MG/0.4 ML INJECTION SQ SCH (18:19)
[2017-03-18] MEDS: CARVEDILOL 12.5 MG TABLET PO SCH (18:20)
[2017-03-18] MEDS: DOCUSATE SODIUM 100 MG CAPSULE PO SCH (20:51)
[2017-03-18] MEDS: ACETAMINOPHEN 500 MG TABLET PO PRN (20:51)
[2017-03-18] MEDS: SACUBITRIL/VALSARTAN 49/51mg TABLET PO SCH (20:51)
[2017-03-18] MEDS ORDERED: ATORVASTATIN 40 MG TABLET PO SCH (21:00)
[2017-03-19] MEDS: FUROSEMIDE 40 MG/4 ML INJECTION IVP SCH ×2 (06:22→08:20)
[2017-03-19] MEDS ORDERED: PANTOPRAZOLE 40 MG TABLET PO SCH (06:30)
[2017-03-19] MEDS ORDERED: LORATADINE 10 MG TABLET PO SCH (07:30)
[2017-03-19] MEDS: DOCUSATE SODIUM 100 MG CAPSULE PO SCH (08:22)
[2017-03-19] MEDS: ACETAMINOPHEN 500 MG TABLET PO PRN (08:22)
[2017-03-19] MEDS: CARVEDILOL 12.5 MG TABLET PO SCH (08:23)
[2017-03-19] MEDS: SACUBITRIL/VALSARTAN 49/51mg TABLET PO SCH (08:23)
[2017-03-19] MEDS: ENOXAPARIN 40 MG/0.4 ML INJECTION SQ SCH (08:23)
[2017-03-19] MEDS ORDERED: NON-FORMULARY MEDICATION 1 EACH EACH (Loratadine [Claritin] 10 MG) PO SCH (09:00)
[2017-03-19] MEDS ORDERED: ASPIRIN *EC* 81 MG TABLET PO SCH (09:00)
[2017-03-19] MEDS ORDERED: POTASSIUM CHLORIDE PO SCH (09:00)
[2017-03-19] MEDS ORDERED: SPIRONOLACTONE 25 MG TABLET PO SCH (09:00)
[2017-03-19] MEDS ORDERED: AMIODARONE 200 MG TABLET PO SCH (09:00)
[2017-03-19 09:56] VITALS: BP 117/87; RESP 18; TEMP 97.2; O2SAT 93
[2017-03-19 10:00] VITALS: PULSE 90
--- NOTE | 2017-03-19 11:19 | Discharge Summary ---
<Luly Swenson - Last Filed: 03/19/17 11:16> Discharge Information Date of admission: 03/18/17 12:58 Anticipated date of discharge: 03/19/17 Attending Physician: Sonido De Jesus MD Primary care physician: Nixon Choi, DO - Discharge Diagnosis (1) Acute on chronic systolic (congestive) heart failure Status: Acute (2) Dilated cardiomyopathy Status: Chronic (3) Ventricular tachycardia Status: Chronic (4) Presence of automatic implantable cardioverter-defibrillator Status: Chronic Acute on chronic Systolic CHF - Laboratory Labs: 03/19/17 05:19 03/19/17 05:19 Laboratory Results - last 24 hr 03/18/17 03/18/17 03/18/17 13:40 13:40 13:40 WBC 7.1 RBC 4.27 L Hgb 14.2 Hct 42.1 MCV 98.6 MCH 33.3 MCHC 33.7 RDW Std Deviation 45.6 Plt Count 249 MPV 10.5 Immature Gran % (Auto) 0.1 Neut % (Auto) 69.8 H Lymph % (Auto) 22.4 L [place] % (Auto) 5.7 Eos % (Auto) 1.4 Baso % (Auto) 0.6 Neut # (Auto) 4.9 Lymph # (Auto) 1.6 [place] # (Auto) 0.4 Eos # (Auto) 0.1 Baso # (Auto) 0.0 Abs Immat Gran (auto) 0.01 Turbidity < 20 Sodium 144 Potassium 3.8 Chloride 110 H Carbon Dioxide 24 Anion Gap 10 BUN 15.0 Creatinine 1.1 GFR Calculation 71 BUN/Creatinine Ratio 14 Glucose 99 Calculated Osmolality 278 Calcium 8.8 Total Bilirubin 2.10 H Icterus Index < 2 AST 18 ALT 36 Alkaline Phosphatase 70 Troponin I 0.033 B-Natriuretic Peptide 9600 H Total Protein 7.7 Albumin 4.2 Globulin 3.5 Albumin/Globulin Ratio 1.2 Triglycerides Cholesterol LDL Cholesterol, Calc VLDL Cholesterol HDL Cholesterol Cholesterol/HDL Ratio Specimen Hemolysis < 15 03/19/17 03/19/17 05:19 05:19 WBC 10.8 D RBC 4.09 L Hgb 13.4 L Hct 40.2 L MCV 98.3 MCH 32.8 MCHC 33.3 RDW Std Deviation 45.7 Plt Count 244 MPV 10.9 Immature Gran % (Auto) 0.1 Neut % (Auto) 72.7 H Lymph % (Auto) 18.7 L [place] % (Auto) 7.2 Eos % (Auto) 1.0 Baso % (Auto) 0.3 Neut # (Auto) 7.8 H Lymph # (Auto) 2.0 [place] # (Auto) 0.8 Eos # (Auto) 0.1 Baso # (Auto) 0.0 Abs Immat Gran (auto) 0.01 Turbidity < 20 Sodium 142 Potassium 3.5 L Chloride 107 Carbon Dioxide 25 Anion Gap 10 BUN 19.0 Creatinine 1.2 GFR Calculation 65 BUN/Creatinine Ratio 16 Glucose 99 Calculated Osmolality 275 Calcium 9.3 Total Bilirubin 1.90 H Icterus Index < 2 AST 23 ALT 34 Alkaline Phosphatase 63 Troponin I B-Natriuretic Peptide Total Protein 6.9 Albumin 3.7 Globulin 3.2 Albumin/Globulin Ratio 1.2 Triglycerides 119 Cholesterol 148 LDL Cholesterol, Calc 91.2 VLDL Cholesterol 23.8 HDL Cholesterol 33 L Cholesterol/HDL Ratio 4.5 Specimen Hemolysis < 15 - Radiology Radiology: Date of Exam: 03/18/17 Ordering Provider: Sonido De Jesus MD Type of Exam(s): XR chest 1V Reason for Exam(s): CHEST PAIN Indication: CHEST PAIN PROCEDURE: XR chest 1V: Encounter: Initial Comparison: June 30, 2016 Findings: There is new hazy airspace opacity in the left upper lobe. Right lung is clear. There is no pleural effusion or pneumothorax. The heart size, pulmonary vascularity and mediastinal contours are unchanged. Left cardiac pacemaker defibrillator. IMPRESSION: Left upper lobe airspace disease could be due to atelectasis or pneumonia. History of Present Illness HPI: Florencio is a 46 year old male who is well known to with a history of Dilated cardiomyopathy, EF 15-20%, BiV/ICD, who presented to the ED in [place] with chest pressure. He was found to have an elevated BNP and Troponin and Dr. De Jesus was contacted for transfer to [facility] for observation admission. Hx Cardiac procedures: 05/10/2016 echo: EF 15-20%, global hypokinesia, LAE, LVE, mod MR, mild TR, PAP 37 , mild PI. 02/18/2014 BiV/ICD - [employer] implanted. 11/05/2013 heart cath: EF 10%, LVE, LVEDP 23, Coronaries normal. Hospital Course This is a general summary of the patient's hospital course. For more details refer to the complete medical record. Hospital course: Florencio had normal Troponin on lab at [facility]. BNP 9600, reports orthopnea and pedal edema. Diuresed well with Lasix 40mg q 12H. Discharged to home on same home meds and instructed to check weight daily, limit sodium and fluid intake during the holidays to avoid exacerbation of chronic heart failure. Time spent with patient: 25 - 35 minutes DVT Prophylaxis: Lovenox Exam Vital signs: Temperature 97.2 F 03/19/17 07:00 Pulse Rate 90 03/19/17 08:00 Respiratory Rate 18 03/19/17 07:00 Blood Pressure 117/87 03/19/17 07:00 Pulse Oximetry 93 03/19/17 07:00 - Constitutional no acute distress, well nourished, cooperative - Routine HEENT Exam Head: Present: normocephalic ENT: Present: mucous membranes moist - Routine Neck Exam Absent: JVD, carotid bruit - Routine Chest/Breast/Axilla Exam Chest wall: Present: pacemaker. Absent: tenderness - Routine Respiratory Exam Present: CTA bilaterally. Absent: rales, wheezes - Routine Cardiovascular Exam Present: RRR, no murmur. Absent: JVD - Routine Abdominal Exam Present: soft, normoactive bowel sounds - Routine Extremities Exam Present: no edema - Routine Skin Exam Present: intact, dry, warm - Routine Neurological Exam Present: alert, oriented X3 - Routine Psychiatric Exam Present: normal affect, normal thought process Results 03/19/17 05:19 03/19/17 05:19 Cardiac Enzymes 03/18/17 03/18/17 03/19/17 Range/Units 13:40 13:40 05:19 AST 18 23 (17-59) U/L Troponin I 0.033 (0-0.12) ng/ml B-Natriuretic Peptide 9600 H (0-175) pg/mL Coagulation 03/18/17 Range/Units 13:40 B-Natriuretic Peptide 9600 H (0-175) pg/mL Lipids 03/19/17 Range/Units 05:19 Triglycerides 119 (40-160) MG/DL Cholesterol 148 (132-199) MG/DL HDL Cholesterol 33 L (40-60) MG/DL Cholesterol/HDL Ratio 4.5 (0-5.0) RATIO CBC 03/18/17 03/19/17 Range/Units 13:40 05:19 WBC 7.1 10.8 D (4.5-11.0) T/MM3 RBC 4.27 L 4.09 L (4.50-5.90) M/MM3 Hgb 14.2 13.4 L (13.5-17.5) GM/DL Hct 42.1 40.2 L (41-53) % Plt Count 249 244 (130-400) T/MM3 Neut # (Auto) 4.9 7.8 H (1.8-7.7) T/MM3 Lymph # (Auto) 1.6 2.0 (1-4.8) T/MM3 [place] # (Auto) 0.4 0.8 (0-0.8) T/MM3 Eos # (Auto) 0.1 0.1 (0-0.5) T/MM3 Baso # (Auto) 0.0 0.0 (0-0.2) T/MM3 Comprehensive Metabolic Panel 03/18/17 03/19/17 Range/Units 13:40 05:19 Sodium 144 142 (134-144) MEQ/L Potassium 3.8 3.5 L (3.6-5) MEQ/L Chloride 110 H 107 (98-107) MEQ/L Carbon Dioxide 24 25 (22-30) MEQ/L BUN 15.0 19.0 (9-20) MG/DL Creatinine 1.1 1.2 (0.8-1.5) MG/DL Glucose 99 99 (75-110) MG/DL Calcium 8.8 9.3 (8.4-10.2) MG/DL AST 18 23 (17-59) U/L ALT 36 34 (21-72) U/L Alkaline Phosphatase 70 63 (38-126) U/L Total Protein 7.7 6.9 (6.3-8.2) G/DL Albumin 4.2 3.7 (3.5-5.0) G/DL Intake and Output 03/18/17 03/19/17 03/19/17 22:59 06:59 14:59 Intake Total 1000 / 1000 470 / 470 336 / 336 Output Total 1949 / 1949 425 / 425 2250 / 2250 Balance -950 / -950 45 / 45 -1914 / -191 Intake: Oral 1000 / 1000 470 / 470 336 / 336 Output: Urine 1950 / 1950 425 / 425 2250 / 2250 Other: Urine Appearance Clear Urine Color Yellow Light Magi Pale Urine Odor Normal Normal Weight 217 lb 6.012 oz Patient Weight 03/20/17 06:59 Weight 217 lb 6.012 oz Discharge Plan - Med Rec/Dispo Referrals/Follow Up: Sonido De Jesus MD [Physician] - 2 Weeks Prescriptions: Continue Spironolactone 25 mg PO DAILY #30 Amiodarone [Pacerone] 200 mg PO DAILY 30 Days #30 tab Carvedilol [Coreg] 12.5 mg PO BIDWM 30 Days #60 tab Sacubitril/Valsartan [Entresto 49 mg-51 mg Tablet] 1 each PO BID 30 Days #60 tab Doxycycline [Vibramycin] 1 tab PO BID Aspirin [Aspir 81] 1 tab PO DAILY #0 tab Pantoprazole Sodium 40 mg PO ACB #0 tab Atorvastatin Calcium 1 tab PO HS #0 tab Furosemide 0.5 tab PO DAILY #0 tab Potassium Chloride [Klor-Con 10] 1 tab PO DAILY #0 Docusate Sodium [Colace] 1 cap PO BID Loratadine [Claritin] 10 mg PO DAILY - Disposition 01 Discharged Home, Self-Care - Dismissal Complete Discharge Instructions are:: Complete <Sonido De Jesus - Last Filed: 03/22/17 12:47> Discharge Information Date of admission: 03/18/17 12:58 Attending Physician: Sonido De Jesus MD Primary care physician: Nixon Choi, DO - Discharge Diagnosis (1) Acute on chronic systolic (congestive) heart failure Status: Acute (2) Dilated cardiomyopathy Status: Chronic (3) Ventricular tachycardia Status: Chronic (4) Presence of automatic implantable cardioverter-defibrillator Status: Chronic - Laboratory Labs: 03/19/17 05:19 03/19/17 05:19 Hospital Course This is a general summary of the patient's hospital course. For more details refer to the complete medical record. Exam Vital signs: Temperature 97.2 F 03/19/17 07:00 Pulse Rate 90 03/19/17 08:00 Respiratory Rate 18 03/19/17 07:00 Blood Pressure 117/87 03/19/17 07:00 Pulse Oximetry 93 03/19/17 07:00 Results 03/19/17 05:19 03/19/17 05:19 Attestation Narriative - Attestation Attestation Narrative: 03/22/17 12:47 Recommendation After examining the patient I agree with the above assessment. I am involved in the formulation of the patient's plan of care.
== END 2017-03-19 12:15 | disposition home or self-care (01) ==
LOC: MED
PROVIDERS: ADMIT Internal Medicine Cardiovascular Disease; ATTEND Internal Medicine Cardiovascular Disease